=== PATIENT | male | born 1945 | race Caucasian/White ===

== ENCOUNTER 2025-02-21 11:34 | Emergency (ER) | payer SELFPAY ==
--- NOTE | 2025-02-21 11:52 | ED.GENMED ---
History of Present Illness
General
Chief Complaint: Musculo-Skeletal Complaint
Source: patient
Exam Limitations: none
Time Seen by Provider: 02/21/25 11:46
History of Present Illness
History of Present Illness:
79-year-old male complaining of nontraumatic left lateral ankle pain. Points to the lateral ankle. Has been there for 10 days. No fever no chills no rash no swelling. No acute trauma
Past History
Past History
ED Past Medical History: Other (PMR history)
Review of Systems
Review of Systems
All Other Systems: Not applicable
Constitutional: Denies fever or chills
Skin: Reports no symptoms
Phy Exam
Physical Exam
Physical Exam:
General: Nontoxic appearing in no distress
Skin: Warm and dry, no rash
Neuro: Alert, nontoxic, grossly nonfocal
Psychiatric: Good eye contact and appropriate
Musculoskeletal: Left knee tib-fib calf all within normal limits. Achilles intact. No ankle swelling no warmth no erythema or joint effusion. Good distal pulses and color. Foot nontender. Minimal tender near the lateral malleolus more proximal.
No significant pain with flexion extension of the ankle
Course
Orders/Labs/Results
Orders:
Orders
02/21/25 11:40
Ankle, left 3 view CR [CR Ankle - Left Min 3 Views ] Urgent
Comment:
Reason For Exam: pain
*Radiology
Radiology exam reviewed: preliminary read by ED provider (Negative)
*Pulse Oximetry
Patient hypoxic: no
*Critical Care Note
Total Time (30-74mins, 75-104mins- exclusive of procedures): Not Applicable
Update Note
Update Note:
Most consistent with a tendinitis. Nothing to support infectious etiology DVT or vascular issue. NSAIDs if tolerable and orthopedic follow-up
ED Attending Note
-
Portions of this chart may have been created with voice recognition software.� Occasional wrong word or��sound alike� substitutions may have occurred due to the inherent limitations of voice recognition software.
Discharge Plan
Departure
Patient Disposition: Home (Routine Discharge)
Date of Disposition: 02/21/25
Time of Disposition: 12:38
Patient with high blood pressure during this ER visit?: Yes
Discharge Problem:
Ongoing left ankle pain, Suspect tendinitis
Instructions: Tendinopathy (DC), BLOOD PRESSURE
Referrals:
Christel Hoffman, DO [Family Provider] -
Ron Sanchez MD [Active] - Follow up in 2-3 days
Activity Restrictions/Additional Instructions:
Try to rest the ankle is much as you can
Call orthopedics for close follow-up
Return sooner with increasing pain swelling redness fever or any other concerning symptoms
Interventions
Interventions:
*Risk Screen - Suicide Last Done: 02/21/25 11:41
*General Assessment Last Done: 02/21/25 12:16
*Neglect/Abuse Screening Last Done: 02/21/25 11:41
*ED- Fall Risk Assessment Last Done: 02/21/25 11:41
*ED COVID-19 Vaccine History Last Done: 02/21/25 12:16
ED-Musculoskeletal Assessment Last Done: 02/21/25 12:16
Discharge Date and Time
Print Language: ROMANIAN
== END 2025-02-21 13:01 | disposition home or self-care (01) ==
LOC: EMR 11:34
PROVIDERS: EMERGENCY PHYSICIAN Emergency Medicine; FAMILY PHYSICIAN Family Medicine
DX: M25.572 Pain in left ankle and joints of left foot (principal)
CPT/HCPCS: 99283; 73610

== ENCOUNTER 2025-05-04 12:14 | Emergency (ER) | payer MEDICARE, OTHER, SELFPAY ==
[2025-05-04 12:15] VITALS: BP 131/78
--- NOTE | 2025-05-04 13:07 | ED.GENMED ---
History of Present Illness
General
Chief Complaint: Throat Problem
Time Seen by Provider: 05/04/25 13:07
History of Present Illness
History of Present Illness:
TIME OF INITIAL EVALUATION
- 1:10 PM
REVIEW OF OLD RECORDS
- The patient denies any significant past medical history. I reviewed records, the patient was seen here a few months ago with distal left lower extremity pain.
CHIEF COMPLAINT(S)
Difficulty in speaking, sensation of throat closure, and fever for five days.
HISTORY OF PRESENT ILLNESS
The patient is a 79-year-old male presenting with a five-day history of symptoms. He reports persistent difficulty in speaking, stating, 'I cant form the words,' and friends perceiving him as though he might be 'drunk.' This issue with communication
has been ongoing since approximately last weekend. He describes having a sensation of his throat closing, to the point where he felt unable to breathe on one occasion, though he acknowledges he must have been inhaling. Additionally, he experienced
feverish sensations during this period, with the head feeling 'very hot,' although he did not measure his temperature. The patient struggles with forming words, and this difficulty tends to worsen towards the end of the day.
During the evaluation, there were no significant findings of uvular edema, swelling, or pus in the airway. The patient denies abdominal pain with palpation and reports no current cramping. Though he mentions having trouble communicating, his speech
was observed to be mostly clear. He expressed concern about the possibility of having experienced a mini-stroke.
PHYSICAL EXAM
- General: Well appearing in no distress
- HEENT: Moist oral mucosa, posterior pharynx is widely patent with no exudate, no edema, no erythema, no uvular edema
- Cardiovascular: No murmurs, normal heart rate, regular rhythm, No chest wall tenderness
- Pulmonary: No respiratory distress, breath sounds are clear and equal
- Abdomen: Soft with no peritoneal signs, no tenderness
- Neurologic: Excellent strength all extremities, no coordination deficits, there may be extremely subtle rare dysarthria but no aphasia noted, stroke scale 0
- Psychiatric: Appropriate mental status, normal insight and judgement
- Extremities: Nontender, no edema, moves all extremities equally
- Skin: No rash, no lesions
PLAN
1. Perform CT imaging of the brain and neck vessels to check for blockages and evaluate the airway.
2. Obtain blood work.
3. Conduct an electrocardiogram (ECG) if not already done.
4. Consider a neurological evaluation.
5. Monitor and reassess the patients condition after initial tests are completed.
DIFFERENTIAL DIAGNOSIS
The Differential Diagnosis includes, in no particular order and is not limited to:
1. Transient Ischemic Attack (TIA)
2. Stroke
3. Viral pharyngitis
4. Laryngitis
5. Allergic reaction
6. Anxiety
7. Neuropathy
8. Dehydration
9. Dysarthria due to another neurologic condition
10. Gastroesophageal reflux disease (GERD) affecting the throat
RADIOLOGY
- CT head and CTA head neck obtained. There is a 7 mm focus of decreased density in the left thalamus suggestive of age-indeterminate infarct there is no mass or bleed. Less than 50% stenosis noted on bilateral ICA
EKG
- Sinus 69, normal axis, LVH noted
LABS
- White count 11.5, hemoglobin normal, chemistries unremarkable
UPDATE
-SUMMARY OF ENCOUNTER
The patient, a 79-year-old male, presented to the emergency department with a five-day history of difficulty speaking, fever, and sensation of throat closure. A CT scan was performed, revealing no bleeding or tumors but showed a small area in the
left thalamus suggestive of a recent minor stroke. Blood vessels showed less than 50% blockage, which is common for his age and not usually a concern for significant complications. The patient appeared clinically stable, and no acute interventions
were necessary. The case was discussed with a neurologist to determine if further immediate testing, such as an MRI, was needed or if aspirin and/or clopidogrel should be started to prevent further issues.
DISPOSITION
Discharge
MANAGEMENT OF THE PATIENTS CARE WAS DISCUSSED WITH
Neurologist (consultation regarding the interpretation of the CT scan and possible need for further imaging or initiation of anti-platelet therapy).
PLAN
Await input from the neurologist regarding the necessity of starting aspirin or clopidogrel and potentially scheduling an outpatient MRI.
INDEPENDENT REVIEW OF LABS AND INTERPRETATION OF TESTS
- My independent CT imaging interpretation of the brain shows no hemorrhage or large tumors. However, a 7 mm area in the left thalamus suggests a possible recent minor stroke.
PATIENT EDUCATION AND COUNSELING
The patient was educated about the findings suggesting a possible minor stroke and the plan for potential anti-platelet therapy to prevent further episodes. The necessity for further testing, such as an MRI, was discussed.
FOLLOW-UP INSTRUCTIONS
Await further instructions regarding outpatient MRI and follow-up with neurology for management of the suspected stroke.
MEDICAL DECISION MAKING
- Chronic conditions affecting care: Considered differential diagnoses including Transient Ischemic Attack (TIA), Stroke, Viral pharyngitis, Laryngitis, Allergic reaction, Anxiety, Neuropathy, Dehydration, Dysarthria due to another neurologic
condition, Gastroesophageal reflux disease (GERD) affecting the throat.
- Data:
- Category 1: CT imaging of the brain was ordered and independently interpreted. The radiology report matched the findings with a small area in the left thalamus indicating a possible recent stroke.
- Category 3: Management discussion with the on-call neurologist regarding the need for further imaging and anticoagulation therapy.
- Risk: Prescription drug management considered; anti-platelet therapy like aspirin and/or clopidogrel may be recommended. Consideration of hospital admission for MRI was discussed but outpatient management with close follow-up was deemed safe.
DIAGNOSIS
- Cerebral infarction, unspecified (ICD-10: I63.9)
- Dysarthria (ICD-10: R47.1)
I discussed case with neurology who recommends 3 weeks of DAPT as well as Lipitor.
Past History
Past History
ED Past Medical History: Other (PMR history)
Phy Exam
Physical Exam
Physical Exam:
See HPI
Course
Orders/Labs/Results
Orders:
Orders
05/04/25 13:17
CT Head & Neck Angio W/wo IV Urgent
Comment:
Reason For Exam: subtle dysarthria and aphasia past 5d; throat pain
CT Head W/o Iv Contrast Urgent
Comment:
Reason For Exam: subtle dysarthria and aphasia past 5d
05/04/25 13:19
Electrocardiogram (*1) Urgent
Reason for Study: TIA/Stroke
EKG- Treatment ONCE
05/04/25 13:28
COVID-19 Antigen Urgent
Source: Nasal Swab
Complete Blood Count/With Diff Urgent
Comprehensive Metabolic Panel Urgent
Influenza A+B Rapid Molecular Urgent
ENDER Source: Nasal Swab
Specimen Description:
05/04/25 17:31
Aspirin 325 mg PO NOW STA
Clopidogrel Bisulfate [Plavix] 75 mg PO NOW STA
Abnormal Lab Results
05/04/25
13:28
WBC 11.5 H 10^3/uL
(4.8-10.8)
Abs Immat Gran (auto) 0.1 H 10^3/uL
(0-0.05)
Absolute Neuts (auto) 8.3 H 10^3/uL
(1.4-6.5)
Absolute Monos (auto) 1.2 H 10^3/uL
(0.1-0.6)
Immature Gran % 1.0 H %
(0-0.5)
Lymphocytes % 11.3 L %
(20.5-51.1)
Monocytes % 10.3 H %
(1.7-9.3)
Chloride 108 H mmol/L
(98-107)
BUN 24 H mg/dl
(9-20)
05/04/25 13:28
05/04/25 13:28
Vital Signs
Initial and Last Documented VS:
Initial Vital Signs
Temp Pulse Resp BP Pulse Ox
36.5 C 80 16 131/78 96
05/04/25 12:15 05/04/25 12:15 05/04/25 12:15 05/04/25 12:15 05/04/25 12:15
Last Documented Vital Signs
Temp Pulse Resp BP Pulse Ox
36.5 C 80 16 131/78 96
05/04/25 12:15 05/04/25 12:15 05/04/25 12:15 05/04/25 12:15 05/04/25 13:09
*Pulse Oximetry
SaO2: 96
Oxygen Mode of Delivery: Room air
Patient hypoxic: no
*Critical Care Note
Total Time (30-74mins, 75-104mins- exclusive of procedures): Not Applicable
ED Attending Note
-
Portions of this chart may have been created with voice recognition software.� Occasional wrong word or��sound alike� substitutions may have occurred due to the inherent limitations of voice recognition software.
Discharge Plan
Departure
Patient Disposition: Home (Routine Discharge)
Date of Disposition: 05/04/25
Time of Disposition: 17:32
Patient with high blood pressure during this ER visit?: Yes
Discharge Problem:
Cerebrovascular accident (CVA) of left thalamus
Instructions: Stroke, BLOOD PRESSURE
Prescriptions:
New
atorvastatin [Lipitor] 40 mg tablet
40 mg PO HS Qty: 30 0RF
clopidogrel [Plavix] 75 mg tablet
75 mg PO DAILY Qty: 20 0RF
Referrals:
Avril Jernigan MD [Non-Admitting Privileges, Neurology]
Christel Hoffman DO [Family Provider, Family Practice]
Activity Restrictions/Additional Instructions:
The CAT scan suggests a recent stroke (very small measuring 7 mm) involving the left thalamus. I discussed with one of the neurologist who recommend that you take a baby aspirin daily. I am also prescribing Plavix to be taken for the next 3 weeks.
Take aspirin and Plavix together for the next 3 weeks and then discontinue the Plavix and continue the aspirin. He also wants you to go on Lipitor and he should stay on this indefinitely. I prescribed the first month of this. Follow-up your
primary care doctor. I am also given you the contact information for a local neurologist, Dr. Jernigan.
Interventions
Interventions:
*Risk Screen - Suicide Last Done: 05/04/25 12:15
*General Assessment Last Done: 05/04/25 12:15
*Neglect/Abuse Screening Last Done: 05/04/25 14:40
*ED COVID-19 Vaccine History Last Done: 05/04/25 14:40
ED-EENT Assessment Last Done: 05/04/25 14:40
ED- Pulmonary Assessment Last Done: 05/04/25 14:40
Discharge Date and Time
Print Language: HUNGARIAN
[2025-05-04 13:33] LABS: Hematocrit 42.0 % (39.0-52.0); Hemoglobin 14.1 g/dL (13.0-18.0); Mean Corp Hgb Conc. 33.6 g/dL (33.0-37.0); Mean Corpuscular Volume 87.1 fL (80.0-94.0); Nucleated Red Blood Cells % 0 % (-); Platelet Count 309 10^3/uL (130-400); Red Cell Dist. Width 13.1 % (11.5-14.5)
[2025-05-04 13:49] LABS: COVID-19 Antigen Negative (Negative)
[2025-05-04 14:12] LABS: ALT (SGPT) 10 U/L (0-50); AST (SGOT) 17 U/L (17-59); Albumin 3.8 g/dl (3.5-5.0); Alkaline Phosphatase 61 U/L (38-126); Blood Urea Nitrogen 24 mg/dl (9-20); Calcium 9.0 mg/dl (8.4-10.2); Carbon Dioxide 26 mmol/L (22-30); Chloride 108 mmol/L (98-107); Glucose 99 mg/dl (70-99); Potassium 4.7 mmol/L (3.5-5.1); Sodium 138 mmol/L (135-145); Total Protein 7.3 g/dl (6.3-8.2); eGFR > 60.00
[2025-05-04] MEDS: ASPIRIN 325 MG PO (17:43)
[2025-05-04] MEDS: PLAVIX 75 MG PO (17:43)
== END 2025-05-04 18:33 | disposition home or self-care (01) ==
LOC: EMR 12:14
PROVIDERS: EMERGENCY PHYSICIAN Emergency Medicine; FAMILY PHYSICIAN Family Medicine
DX: I63.9 Cerebral infarction, unspecified (principal)
CPT/HCPCS: 99284; 70496; 70498; 80053; 85025; 87502; 87811; 93005; Q9967

== ENCOUNTER → 2025-05-28 09:29 | Emergency (ER) | payer MEDICARE, OTHER, SELFPAY ==
[2025-05-28 09:33] VITALS: BP 156/97
--- NOTE | 2025-05-28 10:15 | ED.GENMED ---
History of Present Illness
<MATTY George - Last Filed: 05/28/25 15:17>
General
Chief Complaint: Generalized Pain
Source: patient
Exam Limitations: none
Time Seen by Provider: 05/28/25 09:37
Nursing documentation reviewed up to this point in time: agreed with
History of Present Illness
History of Present Illness:
Patient is an 80-year-old male with past medical history of polymyalgia rheumatica diagnosed in 2019 and recent stroke diagnosed here May 04 in the ER. He reports he noticed that his pain several weeks ago.
He complains of leg pain b/l. leg and feels he can walk around well weakness bilaterally for the past several weeks however worse over this weekend. He can barely walk a couple steps without having pain. He complains of pain to his thighs and
describes as muscular pain. 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 Patient was seen in the ER May 04 for stroke and at that time he was prescribed Lipitor and Plavix but stopped taking this several days after he was prescribed.
In addition pt recently has noticed some mild urinary incontinence. He denies any actual fever chills or dysuria. He does not feel like that he is retaining urine. He does that he is emptying his bladder. Denies any recent fever or chills. He
denies any back pain. He denies any numbness , tingling. no saddle paresthesia
Past History
<MATTY George - Last Filed: 05/28/25 15:17>
Past History
ED Past Medical History: Other (PMR history)
Phy Exam
<MATTY George - Last Filed: 05/28/25 15:17>
General Physical Exam
General Presentation: no apparent distress
General age: appears stated age
General Skin: warm and dry
General Habitus: normal
General Mental: alert
General Hydration: appears well hydrated
Cardiovascular Exam
Cardiovascular Exam: regular rate/rhythm, no murmur and normal peripheral pulses
Pulmonary Exam
Pulmonary Exam: lungs clear and no respiratory distress
Neurological Exam
Neurological Exam: alert and oriented x3
Musculoskeletal Exam
Musculoskeletal Exam: full ROM and other (Patient is known as a pulses bilateral lower extremities normal inspection no obvious leg redness or swelling full range of motion of bilateral hips)
Skin Exam
Skin Exam: normal color and warm/dry
Psychiatric Exam
Psychiatric Exam: normal mood/affect
Course
<MATTY George - Last Filed: 05/28/25 15:17>
Orders/Labs/Results
Orders:
Orders
05/28/25 10:18
Bladder Scan- Treatment ONCE
05/28/25 10:19
IV Insert/Care/Rem.- Treatment PRN
05/28/25 10:23
0.9% Sodium Chloride 1000 ml [Nss] 1,000 ml IV BOLUS
05/28/25 11:05
CPK [Creatine Phosphokinase] Urgent
CRP [C-Reactive Protein] Urgent
Complete Blood Count/With Diff Urgent
Comprehensive Metabolic Panel Urgent
Sed Rate [Erythrocyte Sed Rate] Urgent
05/28/25 13:17
COVID-19 Antigen Urgent
Source: Nasal Swab
Urinalysis Reflex To Culture Urgent
Date Specimen was Collected: 05/28/25
Time Specimen was Collected: 11:08
Urine Microscopic Reflex Cult Urgent
05/28/25 15:01
Prednisone [Deltasone] 15 mg PO NOW STA
Abnormal Lab Results
05/28/25 05/28/25
11:05 13:17
WBC 17.4 H 10^3/uL
(4.8-10.8)
RBC 4.35 L 10^6/uL
(4.70-6.10)
Hgb 12.2 L g/dL
(13.0-18.0)
Hct 36.8 L %
(39.0-52.0)
Abs Immat Gran (auto) 0.3 H 10^3/uL
(0-0.05)
Absolute Neuts (auto) 15.3 H 10^3/uL
(1.4-6.5)
Absolute Lymphs (auto) 0.7 L 10^3/uL
(1.2-3.4)
Absolute Monos (auto) 1.0 H 10^3/uL
(0.1-0.6)
Immature Gran % 1.8 H %
(0-0.5)
Neutrophils % 88.3 H %
(42.2-75.2)
Lymphocytes % 3.9 L %
(20.5-51.1)
ESR 86 H mm/hour
(0-20)
Sodium 134 L mmol/L
(135-145)
BUN 21 H mg/dl
(9-20)
Glucose 114 H mg/dl
(70-99)
Creatine Kinase 285 H U/L
(55-170)
C-Reactive Protein 79.50 H mg/L
(0.0-10.00)
Albumin 3.1 L g/dl
(3.5-5.0)
Ur Occult Blood Reflex 1+ A
(Negative)
Urine Bacteria (Reflex) Few A
(Negative)
Urine Albumin (Reflex) 2+ A
(Neg - Trace)
05/28/25 11:05
05/28/25 11:05
Vital Signs
Initial and Last Documented VS:
Initial Vital Signs
Temp Pulse Resp BP Pulse Ox
98.0 F 97 16 156/97 98
05/28/25 09:33 05/28/25 09:33 05/28/25 09:33 05/28/25 09:33 05/28/25 09:33
Last Documented Vital Signs
Temp Pulse Resp BP Pulse Ox
98.7 F 83 19 163/96 98
05/28/25 11:24 05/28/25 11:17 05/28/25 11:17 05/28/25 11:17 05/28/25 10:17
Branch Service Associate consulted with Physician
Branch Service Associate consulted with physician?: Yes
Name of Physician Consulted: Andriy
<Javon Ashraf, DO - Last Filed: 05/28/25 15:02>
Orders/Labs/Results
Orders:
Orders
05/28/25 10:18
Bladder Scan- Treatment ONCE
05/28/25 10:19
IV Insert/Care/Rem.- Treatment PRN
05/28/25 10:23
0.9% Sodium Chloride 1000 ml [Nss] 1,000 ml IV BOLUS
05/28/25 11:05
CPK [Creatine Phosphokinase] Urgent
CRP [C-Reactive Protein] Urgent
Complete Blood Count/With Diff Urgent
Comprehensive Metabolic Panel Urgent
Sed Rate [Erythrocyte Sed Rate] Urgent
05/28/25 13:17
COVID-19 Antigen Urgent
Source: Nasal Swab
Urinalysis Reflex To Culture Urgent
Date Specimen was Collected: 05/28/25
Time Specimen was Collected: 11:08
Urine Microscopic Reflex Cult Urgent
05/28/25 15:01
Prednisone [Deltasone] 15 mg PO NOW STA
Abnormal Lab Results
05/28/25 05/28/25
11:05 13:17
WBC 17.4 H 10^3/uL
(4.8-10.8)
RBC 4.35 L 10^6/uL
(4.70-6.10)
Hgb 12.2 L g/dL
(13.0-18.0)
Hct 36.8 L %
(39.0-52.0)
Abs Immat Gran (auto) 0.3 H 10^3/uL
(0-0.05)
Absolute Neuts (auto) 15.3 H 10^3/uL
(1.4-6.5)
Absolute Lymphs (auto) 0.7 L 10^3/uL
(1.2-3.4)
Absolute Monos (auto) 1.0 H 10^3/uL
(0.1-0.6)
Immature Gran % 1.8 H %
(0-0.5)
Neutrophils % 88.3 H %
(42.2-75.2)
Lymphocytes % 3.9 L %
(20.5-51.1)
ESR 86 H mm/hour
(0-20)
Sodium 134 L mmol/L
(135-145)
BUN 21 H mg/dl
(9-20)
Glucose 114 H mg/dl
(70-99)
Creatine Kinase 285 H U/L
(55-170)
C-Reactive Protein 79.50 H mg/L
(0.0-10.00)
Albumin 3.1 L g/dl
(3.5-5.0)
Ur Occult Blood Reflex 1+ A
(Negative)
Urine Bacteria (Reflex) Few A
(Negative)
Urine Albumin (Reflex) 2+ A
(Neg - Trace)
05/28/25 11:05
05/28/25 11:05
Vital Signs
Initial and Last Documented VS:
Initial Vital Signs
Temp Pulse Resp BP Pulse Ox
98.0 F 97 16 156/97 98
05/28/25 09:33 05/28/25 09:33 05/28/25 09:33 05/28/25 09:33 05/28/25 09:33
Last Documented Vital Signs
Temp Pulse Resp BP Pulse Ox
98.7 F 83 19 163/96 98
05/28/25 11:24 05/28/25 11:17 05/28/25 11:17 05/28/25 11:17 05/28/25 10:17
<MATTY George - Last Filed: 05/28/25 15:17>
MDM/Problems Addressed
Differential Diagnosis Includes:
not limited to: PMR exacerbation rhabdomyolysis, dehydration
MDM/Problems Addressed:
documented patient is an 80-year-old male with past medical history of polymyalgia rheumatica last flare was in 2019 presents to the ER complaining of bilateral leg pain and weakness. This started several weeks ago. He incidentally was seen and
diagnosed with stroke in May 04 and started on statin and Plavix but stopped taking them only 3 days after. He felt that maybe the leg pain was related to this as well. He currently does not really follow-up with his family doctor and does not
have a current associate programmer. He is awake alert no acute distress he is able to walk. He denies any recent fever chills. He does however report some mild incontinence but denies any actual pain with urination. Denies any back pain. Denies any
nausea vomiting. Denies any recent trauma saddle paresthesia or numbness and tingling to his legs. Patient's white count is mildly elevated along with his sed rate and CRP. CPK very minimally elevated .
Patient gave a urine specimen does not feel that he is retaining urine and feels that he completely emptied his bladder there is no evidence of infection. Case reviewed ED physician. Case reviewed with rheumatology Dr. Cronin who does recommend
starting 50 mg of prednisone a day and she will get patient in the office this week. I did thoroughly the discharge instructions and the importance of outpatient rheumatology follow-up.
<MATTY George - Last Filed: 05/28/25 15:17>
*Pulse Oximetry
SaO2: 98
Oxygen Mode of Delivery: Room air
Patient hypoxic: no
*Critical Care Note
Total Time (30-74mins, 75-104mins- exclusive of procedures): Not Applicable
ED Attending Note
<MATTY George - Last Filed: 05/28/25 15:17>
-
Portions of this chart may have been created with voice recognition software.� Occasional wrong word or��sound alike� substitutions may have occurred due to the inherent limitations of voice recognition software.
<Javon Ashraf DO - Last Filed: 05/28/25 15:02>
ED Attending Note
Patient seen and examined by attending physician: Yes
I performed the substantive portion of visit, reviewed & personally made and approve the management plan that is documented in note by myself or EM.: Yes
ED Attending Note:
I evaluated the patient at bedside. He reports primarily lower extremity discomfort that may be related to PMR history. Will resume steroids. Some of his symptoms worsened after he started a statin when I saw him a few weeks ago for strokelike
symptoms. He will continue to hold the statin for now.
Discharge Plan
Departure
Patient Disposition: Home (Routine Discharge)
Date of Disposition: 05/28/25
Time of Disposition: 15:08
Patient with high blood pressure during this ER visit?: Yes
Condition: Fair
Covid-19: Not Applicable
Discharge Problem:
Myalgia
Instructions: Muscle, joint, and bone pain - Discharge instructions, BLOOD PRESSURE
Prescriptions:
New
prednisone 5 mg tablet
15 mg PO DAILY Qty: 21 0RF
No Action
atorvastatin [Lipitor] 40 mg tablet
40 mg PO HS Qty: 30 0RF
clopidogrel [Plavix] 75 mg tablet
75 mg PO DAILY Qty: 20 0RF
Referrals:
Lian Cronin MD [Active, Rheumatology]
Christel Hoffman DO [Family Provider, Family Practice]
Activity Restrictions/Additional Instructions:
discussed you were started on prednisone ( a steroid) and you were Given a dose here in the ER. Please start taking 15 mg of steroids daily for the next week(starting tomorrow )
Please call rheumatology either today or tomorrow for an appointment this week.
Return if any worsening of symptoms of increased pain or weakness or any further concerns.
Interventions
Interventions:
*Risk Screen - Suicide Last Done: 05/28/25 09:33
*General Assessment Last Done: 05/28/25 11:13
*Neglect/Abuse Screening Last Done: 05/28/25 09:33
*ED- Fall Risk Assessment Last Done: 05/28/25 11:13
*ED COVID-19 Vaccine History Last Done: 05/28/25 11:13
Discharge Date and Time
Print Language: WALLISIAN
[2025-05-28 11:09] VITALS: BMI 19.6
[2025-05-28 11:17] VITALS: BP 163/96
[2025-05-28 11:18] LABS: Hematocrit 36.8 % (39.0-52.0); Hemoglobin 12.2 g/dL (13.0-18.0); Mean Corp Hgb Conc. 33.2 g/dL (33.0-37.0); Mean Corpuscular Volume 84.6 fL (80.0-94.0); Nucleated Red Blood Cells % 0 % (-); Platelet Count 371 10^3/uL (130-400); Red Cell Dist. Width 13.2 % (11.5-14.5)
[2025-05-28] MEDS: NSS 1000 IV (11:20)
[2025-05-28 11:33] LABS: ALT (SGPT) 24 U/L (0-50); AST (SGOT) 28 U/L (17-59); Albumin 3.1 g/dl (3.5-5.0); Alkaline Phosphatase 54 U/L (38-126); Blood Urea Nitrogen 21 mg/dl (9-20); Calcium 8.4 mg/dl (8.4-10.2); Carbon Dioxide 25 mmol/L (22-30); Chloride 105 mmol/L (98-107); Estimated Creatinine Clearance 80 ml/min; Glucose 114 mg/dl (70-99); Potassium 4.7 mmol/L (3.5-5.1); Sodium 134 mmol/L (135-145); Total Protein 6.5 g/dl (6.3-8.2); eGFR > 60.00
[2025-05-28 11:34] LABS: C-Reactive Protein 79.50 mg/L (0.0-10.00)
[2025-05-28 12:00] VITALS: BP 147/89
[2025-05-28 13:07] VITALS: BP 162/103
[2025-05-28 14:00] VITALS: BP 139/93
[2025-05-28 14:01] LABS: Urine Character Clear (Clear)
[2025-05-28 14:09] LABS: COVID-19 Antigen Negative (Negative)
[2025-05-28 14:31] LABS: Urine Red Blood Cell 0-2 /HPF (0-2)
[2025-05-28] MEDS: DELTASONE 15 MG PO (15:42)
--- NOTE | 2025-05-28 19:23 | ED.GENMED ---
History of Present Illness
General
Chief Complaint: Generalized Pain
Time Seen by Provider: 05/28/25 09:37
Past History
Past History
ED Past Medical History: Other (PMR history)
Course
Orders/Labs/Results
Orders:
Orders
05/28/25 10:18
Bladder Scan- Treatment ONCE
05/28/25 10:19
IV Insert/Care/Rem.- Treatment PRN
05/28/25 10:23
0.9% Sodium Chloride 1000 ml [Nss] 1,000 ml IV BOLUS
05/28/25 11:05
CPK [Creatine Phosphokinase] Urgent
CRP [C-Reactive Protein] Urgent
Complete Blood Count/With Diff Urgent
Comprehensive Metabolic Panel Urgent
Sed Rate [Erythrocyte Sed Rate] Urgent
05/28/25 13:17
COVID-19 Antigen Urgent
Source: Nasal Swab
Urinalysis Reflex To Culture Urgent
Date Specimen was Collected: 05/28/25
Time Specimen was Collected: 11:08
Urine Microscopic Reflex Cult Urgent
05/28/25 15:28
Prednisone [Deltasone] 15 mg PO NOW STA
Abnormal Lab Results
05/28/25 05/28/25
11:05 13:17
WBC 17.4 H 10^3/uL
(4.8-10.8)
RBC 4.35 L 10^6/uL
(4.70-6.10)
Hgb 12.2 L g/dL
(13.0-18.0)
Hct 36.8 L %
(39.0-52.0)
Abs Immat Gran (auto) 0.3 H 10^3/uL
(0-0.05)
Absolute Neuts (auto) 15.3 H 10^3/uL
(1.4-6.5)
Absolute Lymphs (auto) 0.7 L 10^3/uL
(1.2-3.4)
Absolute Monos (auto) 1.0 H 10^3/uL
(0.1-0.6)
Immature Gran % 1.8 H %
(0-0.5)
Neutrophils % 88.3 H %
(42.2-75.2)
Lymphocytes % 3.9 L %
(20.5-51.1)
ESR 86 H mm/hour
(0-20)
Sodium 134 L mmol/L
(135-145)
BUN 21 H mg/dl
(9-20)
Glucose 114 H mg/dl
(70-99)
Creatine Kinase 285 H U/L
(55-170)
C-Reactive Protein 79.50 H mg/L
(0.0-10.00)
Albumin 3.1 L g/dl
(3.5-5.0)
Ur Occult Blood Reflex 1+ A
(Negative)
Urine Bacteria (Reflex) Few A
(Negative)
Urine Albumin (Reflex) 2+ A
(Neg - Trace)
05/28/25 11:05
05/28/25 11:05
Vital Signs
Initial and Last Documented VS:
Initial Vital Signs
Temp Pulse Resp BP Pulse Ox
98.0 F 97 16 156/97 98
05/28/25 09:33 05/28/25 09:33 05/28/25 09:33 05/28/25 09:33 05/28/25 09:33
Last Documented Vital Signs
Temp Pulse Resp BP Pulse Ox
98.7 F 79 16 139/93 98
05/28/25 11:24 05/28/25 15:00 05/28/25 15:00 05/28/25 14:00 05/28/25 10:17
*Pulse Oximetry
SaO2: 98
Oxygen Mode of Delivery: Room air
ED Attending Note
-
Portions of this chart may have been created with voice recognition software.� Occasional wrong word or��sound alike� substitutions may have occurred due to the inherent limitations of voice recognition software.
Discharge Plan
Departure
Patient Disposition: Home (Routine Discharge)
Date of Disposition: 05/28/25
Time of Disposition: 15:08
Patient with high blood pressure during this ER visit?: Yes
Condition: Fair
Covid-19: Not Applicable
Discharge Problem:
Myalgia
Instructions: Muscle, joint, and bone pain - Discharge instructions, BLOOD PRESSURE
Prescriptions:
New
prednisone 5 mg tablet
15 mg PO DAILY Qty: 21 0RF
No Action
atorvastatin [Lipitor] 40 mg tablet
40 mg PO HS Qty: 30 0RF
clopidogrel [Plavix] 75 mg tablet
75 mg PO DAILY Qty: 20 0RF
Referrals:
Lian Cronin MD [Active, Rheumatology]
Christel Hoffman DO [Family Provider, Family Practice]
Activity Restrictions/Additional Instructions:
discussed you were started on prednisone ( a steroid) and you were Given a dose here in the ER. Please start taking 15 mg of steroids daily for the next week(starting tomorrow )
Please call rheumatology either today or tomorrow for an appointment this week.
Return if any worsening of symptoms of increased pain or weakness or any further concerns.
Interventions
Interventions:
*Risk Screen - Suicide Last Done: 05/28/25 09:33
*General Assessment Last Done: 05/28/25 11:13
*Neglect/Abuse Screening Last Done: 05/28/25 09:33
*ED- Fall Risk Assessment Last Done: 05/28/25 11:13
*ED COVID-19 Vaccine History Last Done: 05/28/25 11:13
Discharge Date and Time
Print Language: ANDORRAN
== END | disposition home or self-care (01) ==
LOC: EMR 09:29
PROVIDERS: Nurse Practitioner; EMERGENCY PHYSICIAN Emergency Medicine; FAMILY PHYSICIAN Family Medicine
DX: M79.10 Myalgia, unspecified site (principal); Z86.73 Personal history of transient ischemic attack (TIA), and cerebral infarction without residual deficits
CPT/HCPCS: 99283; 96360; 80053; 81003; 81015; 82550; 85025; 85652; 86140; 87811

== ENCOUNTER 2025-06-01 15:14 | Inpatient (IN) | payer MEDICARE, OTHER, SELFPAY ==
[2025-06-01] VITALS (11 sets, daily range): BP systolic 121–182; BP diastolic 71–100; BMI 19.5; BMI 18.9
--- NOTE | 2025-06-01 10:40 | ED.GENMED ---
History of Present Illness
General
Chief Complaint: Dizziness
Source: patient
Exam Limitations: none
Time Seen by Provider: 06/01/25 10:39
Nursing documentation reviewed up to this point in time: agreed with
History of Present Illness
History of Present Illness:
80-year-old male with history of polymyalgia rheumatica, CVA, presents with dizziness and cold sweats that began around 7:00 AM today. The episodes were accompanied by feelings of unsteadiness and required him to sit down. The patient reports that
these symptoms have been slowly improving with 'just a little' residual dizziness. He has a history of a previous stroke 05/04/25 with residual left leg weakness. He denies any chest pain, nausea, or breathing difficulties during the current episode.
There is no new numbness, tingling, or weakness of the arms or legs and no headache.
The patient admits that he is incontinent and has no control over his bladder, leading to the use of pads. Regarding medications, he stopped taking Clopidogrel (Plavix) and Atorvastatin (Lipitor) because he perceived they impaired his ability to
walk and caused dizziness, although he acknowledges this may have been coincidental. His current medications include Prednisone, prescribed yesterday by a material analyst for polymyalgia rheumatica.
The patient has an MRI scheduled at [facility] in 2 days as a follow-up for the stroke
Past History
Past History
ED Past Medical History: CVA and Other (PMR )
ED Past Surgical History: Orthopedic
Social History
Tobacco: Non-smoker
Alcohol: None
Personal:
Living: with family
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
Review of Systems
Review of Systems
Allergies reviewed?: Yes
All Other Systems: ROS reviewed and negative except as documented in HPI and ROS
Constitutional: Denies fever
Respiratory: Denies trouble breathing
Cardiac: Reports diaphoresis; Denies chest pain
ABD/GI: Denies abdominal pain or nausea
: Reports incontinence
Musculoskeletal: Denies edema
Neurological: Reports dizzy and weakness (Residual left leg weakness post CVA); Denies headache or numbness
Phy Exam
Physical Exam
Physical Exam:
GENERAL: No acute distress. A&Ox3.
CONSTITUTIONAL: Afebrile.
EYES: clear, conjunctivae normal
ENMT: moist mucus membranes, Pharynx nl
RESPIRATORY: Regular respirations, nonlabored, lungs clear.
CARDIOVASCULAR: Regular rate and rhythm, no murmurs, no rubs.
GI: Soft, nontender, normal BS
MUSCULOSKELETAL: Moves with ease. Well perfused.
SKIN: Warm, dry, pink
PSYCH: Normal mood and affect. Well kept, interactive and appropriate
NEUROLOGIC: Awake, alert and oriented. Speech clear. Strength equal throughout. Hhuptr-ui-vweg intact. No focal neurological deficits
Scores
NIH Stroke Score
Level of Consciousness: 0 - Alert
LOC Questions: 0-Answers both correctly
LOC Commands: 0-Performs both correctly
Best Horizontal Gaze: 0-Normal
Visual Carroll: 0=Normal, no visual loss
Facial Palsy: 0=Normal, symmetrical
Motor - Right Arm: 0=No drift 10 seconds
Motor - Left Arm: 0=No drift 10 seconds
Motor - Right Le-No drift 5 seconds
Motor - Left Le-No drift 5 seconds
Limb Ataxia: 0-Absent
Sensation: 0-Normal
Best Language: 0-No aphasia
Dysarthria: 0-Normal
Extinction and Inattention: 0-No abnormality
NIH Total Score:: 0
Course
Orders/Labs/Results
Orders:
Orders
06/01/25 10:35
Electrocardiogram (*1) Urgent
Reason for Study: Chest Pain
EKG- Treatment ONCE
06/01/25 10:36
C-Reactive Protein Urgent
Comment: ADD ON
Complete Blood Count/With Diff Urgent
Comprehensive Metabolic Panel Urgent
Creatine Phosphokinase Urgent
Ferritin Urgent
Comment: ADD ON
Folate Urgent
Comment: ADD ON
TSH Reflex To Free T4 Urgent
Comment: ADD ON
Troponin I Urgent
Vitamin B12 Urgent
Comment: ADD ON
Vitamin D, 25-Oh Urgent
06/01/25 10:56
CT Head W/o Iv Contrast Urgent
Comment:
Reason For Exam: dizziness
06/01/25 11:04
Urinalysis Reflex To Culture Urgent
06/01/25 14:05
Add On- LAB Urgent
Tests Added?: crp, esr, ths with free t4 reflex, CPK
Bladder Scan As Directed
Follow Bladder Retention/Intermittent Cath Algorithm?: Yes
PRN if no void in __ hours: 6
Frequency: Per Retention Algorithm
If Bladder Scan Result >: 400
then:: Straight cath
06/01/25 14:06
Lumbar W/O & With Contrast MR [MR Lumbar W/o & With Contrast] Urgent
Comment:
Reason For Exam: urinary incontinence
OK for patient to be off Cardiac Monitoring for MRI: Yes
Recent pill cam endoscopy?: No
Straight Cath As Directed
Frequency: Per Retention Algorithm
Additional Instructions: straight cath as needed per acute urinary retention algorithm for 24 hrs
Additional Instructions: for bladder scan greater than 400 mL
06/01/25 14:12
Add On- LAB Urgent
Tests Added?: crp, b12 vitamin 3 25-hydroxy
06/01/25 14:22
Add On- LAB Urgent
Tests Added?: ferritin tibc, folate
06/01/25 14:34
NEUROLOGY CONSULT Routine
Consulting Provider: Tomi Montiel
Was physician already notified: Yes
Reason for consult: reecnt cva leg weakness bladder incontinece
Chest [CR Chest - 2 Views ] Urgent
Comment:
Reason For Exam: Acute leukocytosis
06/01/25 14:35
Admit/Transfer Patient As Directed
Co-Sign Provider:
Level of Care: Inpatient admission
Assign to:: Telemetry
Physician / Group: vivi craft
Diagnosis: leg weakness bladder incont conc lumbar issue vs pmr, leukocytosis unclear
Reason for Telemetry: Arrhythmia
Date to Stop Telemetry: 06/04/25
Time to Stop Telemetry: 11:00
Reason for Hospitalization: leg weakness bladder incont conc lumbar issue vs pmr, leukocytosis unclear
Expected length of stay greater than two midnights?: Yes
ELOS- Estimated Length of Stay in days: 5
I certify the patient meets the requirements for IP care: Yes
Code Status As Directed
Resuscitation Status: Do not resuscitate
Reached after discussion with pt or family/Healthcare POA: Yes
Decision communicated with: Per patient with daughter in room
DNR Bracelet Application ONCE
06/01/25 14:37
PRN Pain Medication Management As Directed
May give lesser potent ordered pain med per pt: Yes
preference::
Protocol:: Medication orders for pain may be administered in a
manner that supports deferring to patient preference
when the pt is:
- Requesting an ordered lesser potent pain medication.
Least to most potent pain medications are defined
as: acetaminophen < NSAID < tramadol < opioids
(morphine, oxycodone, hydromorphone).
- Requesting a lesser dose of the same medication IF
ORDERED.
- Requesting a less intrusive route of administration
if both routes are prescribed by the provider (PO <
IV).
06/01/25 14:38
MR Thoracic Spine W/o & With Urgent
Comment:
Reason For Exam: bladder incontinence leg wekaness
OK for patient to be off Cardiac Monitoring for MRI: Yes
Recent pill cam endoscopy?: No
Pacemaker/Defibrillator?: No
06/01/25 14:42
Famotidine [Pepcid] 20 mg PO NOW STA
Prednisone [Deltasone] 60 mg PO NOW STA
06/01/25 14:45
Blood Culture Q30M
ENDER Source: Blood/Venous
Specimen Description:
06/01/25 15:15
Blood Culture Q30M
ENDER Source: Blood/Venous
Specimen Description:
06/01/25 15:34
Urinalysis Reflex To Culture Routine
Date Specimen was Collected: 06/01/25
Time Specimen was Collected: 14:47
Urine Microscopic Reflex Cult Routine
Urine Culture Routine
ENDER Source: U
Specimen Description:
Date Specimen was Collected: 06/01/25
Time Specimen was Collected: 14:47
06/01/25 15:39
ROLANDA, IgG Reflex to HEp-2 [S] Routine
Comment: May add to blood in lab
Acetylcholine Receptor Bind Ab [S] Routine
Comment: may add to blood in lab or draw as routine
CPK Isoenzyme Routine
Comment: May add to blood in lab
Lactic Acid Urgent
06/02/25 08:00
Famotidine [Pepcid] 20 mg PO DAILY
06/04/25 11:00
DC Protocol for Telemetry ONCE
Abnormal Lab Results
06/01/25
10:36
WBC 16.2 H 10^3/uL
(4.8-10.8)
RBC 4.26 L 10^6/uL
(4.70-6.10)
Hgb 12.0 L g/dL
(13.0-18.0)
Hct 36.9 L %
(39.0-52.0)
MCHC 32.5 L g/dL
(33.0-37.0)
Abs Immat Gran (auto) 0.4 H 10^3/uL
(0-0.05)
Absolute Neuts (auto) 13.6 H 10^3/uL
(1.4-6.5)
Absolute Lymphs (auto) 0.8 L 10^3/uL
(1.2-3.4)
Absolute Monos (auto) 1.2 H 10^3/uL
(0.1-0.6)
Immature Gran % 2.2 H %
(0-0.5)
Neutrophils % 83.7 H %
(42.2-75.2)
Lymphocytes % 4.8 L %
(20.5-51.1)
BUN 23 H mg/dl
(9-20)
Glucose 137 H mg/dl
(70-99)
Calcium 7.9 L mg/dl
(8.4-10.2)
C-Reactive Protein 49.10 H mg/L
(0.0-10.00)
Total Protein 6.0 L g/dl
(6.3-8.2)
Albumin 3.0 L g/dl
(3.5-5.0)
Vitamin D 25-Hydroxy 18.5 L ng/mL
(30-80)
06/01/25 10:36
06/01/25 10:36
Vital Signs
Initial and Last Documented VS:
Initial Vital Signs
Pulse Resp BP Pulse Ox
70 19 154/78 96
06/01/25 10:34 06/01/25 10:34 06/01/25 10:34 06/01/25 10:34
Last Documented Vital Signs
Temp Pulse Resp BP Pulse Ox
98.9 F 66 17 139/88 96
06/01/25 10:54 06/01/25 15:00 06/01/25 15:00 06/01/25 15:00 06/01/25 15:00
MDM/Problems Addressed
Differential Diagnosis Includes:
- Cerebrovascular event (transient ischemic attack or stroke)
- Orthostatic hypotension
- Labyrinthitis or vestibular dysfunction
- Dehydration
- Cardiac arrhythmia
- Infection (e.g., urinary tract infection)
- Hypoglycemia
- Myocardial infarction
- Anxiety disorder
MDM/Problems Addressed:
80-year-old male with history of polymyalgia rheumatica, CVA, presents with dizziness and cold sweats that began around 7:00 AM today. The episodes were accompanied by feelings of unsteadiness and required him to sit down. The patient reports that
these symptoms have been slowly improving with 'just a little' residual dizziness. He has a history of a previous stroke 05/04/25 with residual left leg weakness. He denies any chest pain, nausea, or breathing difficulties during the current episode.
There is no new numbness, tingling, or weakness of the arms or legs and no headache.
The patient admits that he is incontinent and has no control over his bladder, leading to the use of pads. Regarding medications, he stopped taking Clopidogrel (Plavix) and Atorvastatin (Lipitor) because he perceived they impaired his ability to
walk and caused dizziness, although he acknowledges this may have been coincidental. His current medications include Prednisone, prescribed yesterday by a material analyst for polymyalgia rheumatica.
The patient has an MRI scheduled at [facility] in 2 days as a follow-up for the stroke
Problem list:
Acute:
- Dizziness with cold sweats
Chronic:
- Left leg weakness secondary to transient ischemic attack
- Polymyalgia rheumatica
-Urine incontinence
Plan:
- Initiate basic blood work
- Obtain a CT scan of the head to evaluate potential causes for dizziness
- Reinforce the need for adherence to Clopidogrel (Plavix) due to its importance in preventing stroke
- Continuous monitoring for changes in neurological status
CBC: WBC 16.2 may be steroid-induced as he had a dose of steroid yesterday
CMP: No clinically significant abnormality
Troponin WNL
Head CT: Radiology report read: No acute intracranial abnormality.
Plan: Admit to hospitalist. Concern for CVA, most likely needs MRI
*Pulse Oximetry
Patient hypoxic: no
*Critical Care Note
Total Time (30-74mins, 75-104mins- exclusive of procedures): Not Applicable
ED Attending Note
-
Portions of this chart may have been created with voice recognition software.� Occasional wrong word or��sound alike� substitutions may have occurred due to the inherent limitations of voice recognition software.
Discharge Plan
Departure
Patient Disposition: Admit
Date of Disposition: 06/01/25
Time of Disposition: 12:04
Admit to: Med/Surg
Presentation/result/management discussed w/ accepting MD/DO: Hospitalist
Condition: Fair
Discharge Problem:
Dizziness
Interventions
Interventions:
*Risk Screen - Suicide Last Done: 06/01/25 10:37
*General Assessment Last Done: 06/01/25 10:37
*Neglect/Abuse Screening Last Done: 06/01/25 10:37
*ED- Fall Risk Assessment Last Done: 06/01/25 10:37
ED- Neurological Assessment Last Done: 06/01/25 10:42
ED- Cardiac Assessment Last Done: 06/01/25 10:42
[2025-06-01 10:51] LABS: Hematocrit 36.9 % (39.0-52.0); Hemoglobin 12.0 g/dL (13.0-18.0); Mean Corp Hgb Conc. 32.5 g/dL (33.0-37.0); Mean Corpuscular Volume 86.6 fL (80.0-94.0); Nucleated Red Blood Cells % 0 % (-); Platelet Count 328 10^3/uL (130-400); Red Cell Dist. Width 13.6 % (11.5-14.5)
[2025-06-01 11:03] LABS: ALT (SGPT) 30 U/L (0-50); AST (SGOT) 27 U/L (17-59); Albumin 3.0 g/dl (3.5-5.0); Alkaline Phosphatase 54 U/L (38-126); Blood Urea Nitrogen 23 mg/dl (9-20); Calcium 7.9 mg/dl (8.4-10.2); Carbon Dioxide 27 mmol/L (22-30); Chloride 105 mmol/L (98-107); Estimated Creatinine Clearance 80 ml/min; Glucose 137 mg/dl (70-99); Potassium 3.9 mmol/L (3.5-5.1); Sodium 137 mmol/L (135-145); Total Protein 6.0 g/dl (6.3-8.2); eGFR > 60.00
[2025-06-01 11:14] LABS: Troponin I < 0.012 ng/ml
--- NOTE | 2025-06-01 13:27 | HPS.HSE ---
Family Physician
-
Family Physician: Christel Hoffman
Chief Complaint
-
Bilateral leg weakness, urinary incontinence
History of Present Illness
80-year-old male complaining of bilateral leg weakness with cramping starting 05/07/2025 3 days after being diagnosed with a stroke on 05/04/2025 that presented with speech difficulty lasting intermittent for several days per his daughter. He he was
seen in the ER however was not seen by neurology he states. He stopped taking aspirin, Plavix, Lipitor 3 days poststroke as he perceived these were making his legs weak. He also reports decreased appetite not eating and drinking for the past month
typically only drinks 24 ounces of coffee a day other day had a banana. This morning while getting up and walking to the bathroom he felt diaphoretic as if he was going to pass out so he sat down on the toilet until he was able to walk and lay down
in the bed where symptoms resolved. He has been going to work except for today due to profound leg weakness. He was seen in the ER on Wednesday 4 days ago due to leg weakness and urinary incontinence he had negative urinalysis at that time he tells
me he had a bladder scan but is unsure of results. He did have leukocytosis at that time but has not been on steroids since 2019. . He was started on prednisone 15 mg on Wednesday 4 days ago his leg weakness and suspected polymyalgia rheumatica. He
was seen yesterday 05/29/2025 by rheumatology was recommended for prednisone to increase to 60 mg. He was also treated for giant cell arteritis via temporal artery biopsy in 2019. He denies current dizziness, vertigo, headache, sore throat, fever,
chills, chest pain, palpitations, cough, shortness of breath, abdominal pain, nausea, vomiting, diarrhea, or rash. He has past medical history of PMR 2019, giant cell arteritis 2019
Medical History
Past Medical History
Past Medical History: Reports Other
Additional Past Medical History:
PMR 2019
giant cell arteritis 2019
former smoker 5 years age [age] 11/02 ppd
Past Surgical History: Reports Other
Additional Past Surgical History:
Appendectomy
Tonsillectomy
Left shoulder reconstruction
Right ankle fracture repair
Social History
Tobacco: Former Smoker (Age [age]/2 a pack a day)
Alcohol: None
Drug: None
Personal: Single
Living: Alone
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
Family History
Family History: Not pertinent
Allergies / Home Medications
Allergies reflects when Allergies were last updated in [facility].
Home Medications with original date entered in [facility]
Allergy/Medication List:
Allergies
Allergy/AdvReac Type Severity Reaction Status Date / Time
No Known Allergies Allergy Verified 06/01/25 10:41
Home Medications
prednisone 15 mg PO DAILY 06/01/25
Review of Systems
-
History Source: Patient and Family (Daughter at bedside)
A 12 point ROS was completed and negative except as noted: Yes
Constitutional: Reports Fatigue; Denies Chills
EENT: Denies Sore Throat or Runny Nose
Respiratory: Denies Cough or Trouble Breathing
Cardiac: Denies Chest Pain, Palpitations or Syncope
Abdomen/GI: Reports Other (Decreased appetite); Denies Abdominal Pain, Nausea, Vomiting, Diarrhea, Constipated or Bloody Stools
: Reports Incontinence (Urine); Denies Flank Pain
Musculoskeletal: Reports Other (Bilateral leg weakness 3 out of 5); Denies Joint Pain or Edema
Skin: Denies Itching or Rash
Neurological: Reports Dizzy and Weakness (Bilateral lower legs); Denies Headache
Endocrine: Reports No Symptoms
Hematologic/Lymphatic: Reports No Symptoms
Psych: Reports Calm
Physical Exam
Vital Signs
Vital Signs
Temp Pulse Resp BP Pulse Ox
98.9 F 55 15 126/79 95
06/01/25 10:54 06/01/25 12:00 08/01/25 12:00 06/01/25 12:00 06/01/25 11:29
Physical Exam
General: Comfortable and Conversant; No Pain, Fever or Chills
HEENT: NormoCephalic, Anicteric, PERRLA (EOMs intact negative nystagmus), [place] Conjunctivae, No Ptosis and Neck Nontender
Respiratory: Clear; No Wheezes, Rales or Rhonchi
Cardiac: S1/S2 and Murmur (2/6 systolic murmur); No Rub, Gallop or Peripheral Edema
Breast: Deferred by me
GI: Soft, Non Tender, Non Distended, Normal Bowel Sounds and No Hepatosplenomegaly
Rectal: Deferred by Provider
Genito-urinary: Deferred by me
Musculoskeletal: Clubbing (To all fingernails), No Cyanosis, No Edema and Other (3 out of 5 strength bilateral lower legs upper arms 5 out of 5 strength)
Skin: Warm and Dry; No Rash or Jaundice
Neuro: AO x 3, Nonfocal/grossly intact, Cranial Nerves Intact and No Sensory Deficits; No Slurred Speech, Facial Droop or Tremors
Psych: Calm
Laboratory Results
-
06/01/25 10:36
06/01/25 10:36
Laboratory Results
Total Bilirubin 0.7 mg/dl (0.2-1.3) 06/01/25 10:36
AST 27 U/L (17-59) 06/01/25 10:36
ALT 30 U/L (0-50) 06/01/25 10:36
Alkaline Phosphatase 54 U/L (38-126) 06/01/25 10:36
Troponin I < 0.012 ng/ml 06/01/25 10:36
Data Reviewed
-
CT Scan: Report Reviewed by me
Lab Data: Labs Reviewed by me
Impression/Plan
-
Impression/plan:
Inpatient telemetry
#Generalized leg muscle weakness with bladder incontinence concern for lumbar spinal issue versus PMR exacerbation versus bladder overflow
-Check CPK, ESR, CRP, B12, sed rate, UA LEGISLATIVE ANALYST, TSH with free T4 reflex
- MRI lumbar/thoracic spine with and without
- Patient stopped Lipitor 3 days after stroke due to extreme leg weakness he also stopped his Plavix and aspirin
# Dizziness likely vasovagal event today/CVA 05/04/2025
#Hx CVA left thalamus CTA head neck 05/04/2025
- Consult neurology discussed with Dr. Casanova
- Check MRI brain
- PT/OT/case management consult
- Defer resumption of Plavix asa
-HOLd Lipitor that he stopped on own 3 days post starting due to extreme leg weakness
- HgbA1c, lipid profile
CTA head and neck 05/04/2025:
1. left thalamus, 7 mm focus of decreased density, suggesting a focus of infarction, exact timeframe uncertain. See above discussion.
2 Calcific atherosclerotic disease is present. No evidence for hemodynamically significant stenosis of either carotid bulb or proximal internal carotid artery.
3. Moderate calcification involving the cavernous internal carotid arteries bilaterally, likely with less than 50% diameter reduction.
4. Hypoplastic A1 segment of the left anterior cerebral artery, considered normal variation.
5. Mild atherosclerotic disease involving the superior vertebral arteries bilaterally, with no evidence for significant narrowing. No significant narrowing of the basilar artery and the posterior cerebral arteries.
6. Severe changes of emphysema within the visualized upper lungs. Peripheral increased interstitial markings within the upper lungs, most likely representing interstitial fibrosis.
#Acute leukocytosis unclear etiology-started before recent prednisone
WBC 16.2, afebrile 98.9F-WBC was 17.4 on 05/28/2025
Patient started prednisone 2 days ago
Follow CBC
##Polymyalgia rheumatica Dx 2019
#Giant cell arteritis 2019 via temporal artery biopsy states did 1 course of prednisone
Patient follows with rheumatology Dr. Wong [phone] extension [phone], also called [phone] no answer
was to start on prednisone 60 mg today was on prior
#Anemia, normocytic
Hgb 12 baseline for patient was 14
Will check iron panel, B12, folate
# COPD possible interstitial fibrosis�new diagnosis for patient
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
DVT prophylaxis
SCDs
DNR per patient with daughter present at bedside
--- NOTE | 2025-06-01 14:38 | CON.NEURO4 ---
Addendum entered and electronically signed by Tomi Montiel MD 06/01/25 16:00:
Studies reviewed.
I have personally examined the patient. I reviewed and agree with the [employer]'s Note.
My addenda:
Awake, alert, interactive. No acute distress.
Speech intact.
Follows 2-step requests w/o difficulty. No tremor.
Extra-ocular movements grossly intact.
Facial movements full and symmetric. Hearing intact to normal conversational volume.
Normal UE movements bilaterally.
Neck: full ROM.
Chest: no dyspnea
Heart: no JVD
Ext: (-) Clubbing, (-) Cyanosis, (-) Edema
IMPRESSIONS/RECOMMENDATIONS:
Progressive onset of bilateral lower extremity weakness with urinary incontinence
Differential diagnosis includes polymyalgia rheumatica which is not the explanation for the patient's urinary incontinence although there is an absence of fecal incontinence. Differential diagnosis for his urinary dysfunction includes prostatic
issues as well as spinal cord issues although he has been absence of hyperreflexia, as well as peripheral neuropathy
Check blood work for potential metabolic abnormalities producing symptoms
Agree with the use of prednisone to remediate polymyalgia symptoms
Rehabilitation evaluations and treatment
Check MRI of brain due to the patient's recent episode of difficulty with speech for which he was to be treated with aspirin and clopidogrel which the patient discontinued
Check MRI of thoracic and lumbar spines due to bladder dysfunction
D/W patient / family
All questions answered.
Will continue to follow pending results.
Original Note:
Documented by User: Virgie Chinchilla NP 06/01/25 15:45
Consultation - Neurology 4
-
CONSULTING PHYSICIAN: Tomi Montiel MD
REFERRING PHYSICIAN: Hospitalists/MATTY Orozco
DICTATED BY: MATTY Sharp
DATE/TIME OF REQUEST: 06/01/25
DATE/TIME OF CONSULTATION: 06/01/25
Reason for Consultation: Weakness
History of Present Illness:
This is an 80-year-old right-handed male who has presented to the hospital with report of progressive bilateral lower extremity weakness, urinary incontinence, speech changes, and dizziness. Patient reports that he is still working and walks a
significant amount at work with no difficulty at baseline. At the end of April, he notes that he suddenly developed bilateral leg weakness and was unable to walk long distances without resting frequently. He notes that his left leg may be slightly
weaker than his right leg, he feels like it is 'dragging' when he walks. He also notes sudden onset urinary incontinence. On 05/04/25 he presented to [facility] ER with report of 5 days of dysarthria and word finding difficulty. CTA head/neck was obtained
and was suggestive of a subacute left thalamic infarct, no LVO. He was started on DAPT with aspirin and clopidogrel and atorvastatin 40mg daily. He reportedly stopped taking these three days later due to increased leg weakness, attributing it to the
new medications. About one week ago, he notes that bilateral arms started feeling week in addition to his legs. 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 About 6 days
ago his leg weakness worsened even more and he presented to the ER on 05/28/25 again for evaluation. ESR was 86. 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
prednisone to 60mg daily. This morning (06/01/25), he was walking around his house and started feeling significantly dizzy, prompting his daughter to call 911. CT head was obtained on arrival in the ER and is unremarkable. Patient denies any headache,
vision changes, swallowing difficulty, leg cramping, and numbness. He notes that his speech feels hoarse, which is different from his speech issues one month ago. He continues to be incontinent of urine, no bowel incontinence. He also notes a 30lb
unintentional weight loss over the past year. In 2019 he had PMR and reports he regained his strength immediately after starting steroids.
Past Medical History: Polymyalgia rheumatica, temporal arteritis, CT head 05/04/25 suggestive of thalamic stroke
Surgical History: Temporal artery biopsy, appendectomy, tonsillectomy, R ankle fracture repair
Family History: Reviewed and noncontributory.
Social History: Former smoker. Denies alcohol and illicit drug use.
Allergies: No known allergies.
Home Medications: See below.
Review of Symptoms:
Patient denies any fever, headache, chest pain, shortness of breath, GI or symptoms.
�Per the HPI.�All systems are reviewed negative except above.
Physical Exam:
The patient is afebrile, abdomen is nondistended, breathing is unlabored, skin is warm and dry, no edema.
Neurologic Examination:
The patient is awake, alert and oriented x 3. He is able to follow commands and answer questions appropriately. There is no aphasia. Speech is mildly dysarthric and hypophonic. On cranial nerve assessment, pupils are 3 mm bilateral, round and
reactive to light and accommodation. Visual carroll are full. Extraocular movements are mildly restricted with upgaze. Facial sensations are intact and bilaterally symmetrical, there is no facial asymmetry. Hearing is intact bilaterally to normal
conversation volume. Tongue palate and uvula are midline. No tongue fasciculations. Motor strengths are 5/5 bilateral upper and 5-/5 bilateral lower extremities on medical research [place] scale. There is no drift or involuntary movement noted, no
fasciculations. Deep tendon reflexes are 2+ bilateral upper and lower extremities and Babinski is absent bilaterally. Sensation of cold and vibration are severely reduced in distal bilateral lower extremities. There was no extinction noted on double
simultaneous stimulation. Coordination is intact by finger to nose bilaterally.
Lab Results: See below.
Neuro Imaging:
1. CTA head/neck 05/04/25: In the left thalamus, 7 mm focus of decreased density, suggesting a focus of infarction, exact timeframe uncertain. See above discussion. Calcific atherosclerotic disease is present. No evidence for hemodynamically
significant stenosis of either carotid bulb or proximal internal carotid artery. Moderate calcification involving the cavernous internal carotid arteries bilaterally, likely with less than 50% diameter reduction. Hypoplastic A1 segment of the left
anterior cerebral artery, considered normal variation. Mild atherosclerotic disease involving the superior vertebral arteries bilaterally, with no evidence for significant narrowing. No significant narrowing of the basilar artery and the posterior
cerebral arteries. Severe changes of emphysema within the visualized upper lungs. Peripheral increased interstitial markings within the upper lungs, most likely representing interstitial fibrosis.
2. CT Head 06/01/25: No acute intracranial abnormality.
Differentials for the patient's presentation include:
1. Polymyalgia rheumatica likely contributing to patient's symptoms.
2. Unclear etiology of sudden onset urinary incontinence.
3. CT head on 05/04/25 was suggestive of a thalamic infarct, not visualized on CT head imaging from today.
Patient has the following risk factors for their symptoms: Hx PMR
Recommendations:
-Continue aspirin 81mg daily.
-Continue steroids per Rheumatology.
-MRI brain noncontrast, MRI thoracic and lumbar spine w/ and w/o contrast pending.
-Goal normotension.
-Checking blood work for metabolic abnormalities.
-PT/OT/ST evaluations.
-DVT prophylaxis.
Discussed patient care with: Dr. Montiel, the patient, patient's daughter
Vital Signs and Labs
-
Vital Signs and Labs:
Vital Signs
Temp Pulse Resp BP Pulse Ox
98.9 F 68 24 182/83 96
06/01/25 10:54 06/01/25 14:33 06/01/25 14:33 06/01/25 14:33 06/01/25 14:33
Lab Results
06/01/25 10:36
06/01/25 10:36
Sodium 137 mmol/L (135-145) 06/01/25 10:36
Potassium 3.9 mmol/L (3.5-5.1) 06/01/25 10:36
BUN 23 mg/dl (9-20) H 06/01/25 10:36
Glucose 137 mg/dl (70-99) H 06/01/25 10:36
Calcium 7.9 mg/dl (8.4-10.2) L 06/01/25 10:36
Medications
-
Active Medications
Generic Name Dose Route Start Last Admin
Trade Name Nigel AVILA Reason Stop Dose Admin
Famotidine 20 mg 06/02/25 08:00
Famotidine 20 Mg Tablet PO 06/30/25 07:59
DAILY SIMONE
Home Medications
�Medication �Instructions �Recorded
prednisone 15 mg PO DAILY 06/01/25
NIH Stroke Score
Subsequent NIH Scale
Date of Subsequent NIH Scale: 06/01/25
Time of Subsequent NIH Scale: 15:00
NIH Stroke Score
Level of Consciousness: 0 - Alert
LOC Questions: 0-Answers both correctly
LOC Commands: 0-Performs both correctly
Best Horizontal Gaze: 0-Normal
Visual Carroll: 0=Normal, no visual loss
Facial Palsy: 0=Normal, symmetrical
Motor - Right Arm: 0=No drift 10 seconds
Motor - Left Arm: 0=No drift 10 seconds
Motor - Right Le-No drift 5 seconds
Motor - Left Le-No drift 5 seconds
Limb Ataxia: 0-Absent
Sensation: 0-Normal
Best Language: 0-No aphasia
Dysarthria: 1-Mild slurring
Extinction and Inattention: 0-No abnormality
NIH Total Score:: 1

Documented by User: Tomi Montiel MD 06/01/25 15:54
NIH Stroke Score
NIH Stroke Score
NIH Total Score:: 1
[2025-06-01] MEDS: DELTASONE 60 MG PO (15:29)
[2025-06-01] MEDS: PEPCID 20 MG PO (15:29)
[2025-06-01 15:57] LABS: Urine Character Clear (Clear)
[2025-06-01 16:08] LABS: Urine Squamous Cell 0-2 /LPF (Few)
[2025-06-01 16:21] LABS: C-Reactive Protein 49.10 mg/L (0.0-10.00)
[2025-06-01 16:39] LABS: Vitamin D, 25-OH*** 18.5 ng/mL (30-80)
[2025-06-01 16:57] LABS: Ferritin 372.0 ng/ml (17.9-464.0)
[2025-06-01 17:30] LABS: Folate 5.4 ng/ml (2.76-20); Vitamin B12 170 pg/ml (239-931)
--- NOTE | 2025-06-01 19:02 | PTCARENOTE ---
pt arrived to unit at 1830 via stretcher from ED. pt pulled over from stretcher to bed. pt family member at the Bedside. BP elevated, cam maker RN made aware, other VSS. pt situated in room, introduced to night shit RN.
--- NOTE | 2025-06-01 23:07 | W.PN.UPDATE ---
Update Note
Progress Note Update
Patient seen and examined independently.
Pelase see [employer] note for full details.
80-year-old man with bilateral leg weakness with cramping starting 05/07/2025 3 days after being diagnosed with a stroke. He presented with speech difficulty, intermittently. He stopped taking aspirin, Plavix, Lipitor 3 days poststroke as he
thought these meds were making his legs weak. He was seen yesterday 05/29/2025 by rheumatology was recommended for prednisone to increase to 60 mg. He was also treated for giant cell arteritis in 2019. He denies current dizziness, vertigo,
headache, sore throat, fever, chills, chest pain, palpitations, cough, shortness of breath, abdominal pain, nausea, vomiting, diarrhea, or rash. He has past medical history of PMR 2019, giant cell arteritis 2019. At the time of my interview he was
comfortable.
Past Medical History
PMR 2019
giant cell arteritis 2019
former smoker 5 years age [age] 11/02 ppd
Appendectomy
Tonsillectomy
Left shoulder reconstruction
Right ankle fracture repair
Physical Exam
General: Comfortable and Conversant;
HEENT: NormoCephalic, A
Respiratory: Clear;
Cardiac: S1/S2
GI: Soft,
Skin: Warm and Dry;
Psych: Calm
CTA head and neck 05/04/2025:
1. left thalamus, 7 mm focus of decreased density, suggesting a focus of infarction, exact timeframe uncertain. See above discussion.
2 Calcific atherosclerotic disease is present. No evidence for hemodynamically significant stenosis of either carotid bulb or proximal internal carotid artery.
3. Moderate calcification involving the cavernous internal carotid arteries bilaterally, likely with less than 50% diameter reduction.
4. Hypoplastic A1 segment of the left anterior cerebral artery, considered normal variation.
5. Mild atherosclerotic disease involving the superior vertebral arteries bilaterally, with no evidence for significant narrowing. No significant narrowing of the basilar artery and the posterior cerebral arteries
6. Severe changes of emphysema within the visualized upper lungs. Peripheral increased interstitial markings within the upper lungs, most likely representing interstitial fibrosis.
Impression/plan:
1. Generalized leg muscle weakness, with bladder incontinence leading to concern for lumbar spinal issue versus PMR exacerbation versus bladder overflow
Neuro consult
Check CPK, ESR, CRP, B12, sed rate, UA ANIMAL CARE TECHNICIAN, TSH with free T4 reflex
Check MRI lumbar/thoracic spine with and without contrast
2. Dizziness (likely vasovagal event today but had CVA 05/04/2025: CVA left thalamus CTA head neck 05/04/2025)
Consulted neurology, case discussed with Dr. Casanova
MRI brain
PT/OT/case management consult
HgbA1c, lipid profile
3. Acute leukocytosis, unclear etiology with WBC 16.2, afebrile 98.9F - WBC was 17.4 on 05/28/2025
Follow CBC
See [employer] note for full details on
Polymyalgia rheumatica
Giant cell arteritis
Anemia, normocytic
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
[2025-06-02] VITALS (7 sets, daily range): BP systolic 114–152; BP diastolic 61–81; PULSE 76; O2SAT 97; BMI 19.0
[2025-06-02 00:05] LABS: Urine Character Clear (Clear)
[2025-06-02 00:53] LABS: Urine Squamous Cell None seen /LPF (Few)
[2025-06-02 00:54] LABS: Urine Red Blood Cell None Seen /HPF (0-2)
[2025-06-02] MEDS: LOW STRENGTH ASPIRIN 81 MG PO (08:18)
[2025-06-02] MEDS: ZITHROMAX 500 MG PO (08:18)
[2025-06-02] MEDS: OSCAL 500 + D 1000 MG PO (08:18)
[2025-06-02] MEDS: PEPCID 20 MG PO (08:19)
[2025-06-02] MEDS: CYANOCOBALAMIN 1000 MCG IM (08:19)
[2025-06-02] MEDS: DELTASONE 60 MG PO (08:19)
[2025-06-02] MEDS: ROCEPHIN 1000 MG IV (08:19)
[2025-06-02] MEDS: STERILE WATER FOR INJECTION 10 ML IV (08:19)
[2025-06-02 09:09] LABS: Hematocrit 34.6 % (39.0-52.0); Hemoglobin 11.4 g/dL (13.0-18.0); Mean Corp Hgb Conc. 32.9 g/dL (33.0-37.0); Mean Corpuscular Volume 87.6 fL (80.0-94.0); Nucleated Red Blood Cells % 0 % (-); Platelet Count 359 10^3/uL (130-400); Red Cell Dist. Width 13.6 % (11.5-14.5)
[2025-06-02 09:43] LABS: ALT (SGPT) 23 U/L (0-50); AST (SGOT) 18 U/L (17-59); Albumin 2.7 g/dl (3.5-5.0); Alkaline Phosphatase 49 U/L (38-126); Blood Urea Nitrogen 27 mg/dl (9-20); Calcium 8.3 mg/dl (8.4-10.2); Carbon Dioxide 28 mmol/L (22-30); Chloride 107 mmol/L (98-107); Estimated Creatinine Clearance 68 ml/min; Glucose 93 mg/dl (70-99); HDL Cholesterol 39 mg/dl; LDL Cholesterol, Calculated 96 mg/dl; Magnesium 2.1 mg/dl (1.6-2.3); Potassium 4.2 mmol/L (3.5-5.1); Sodium 138 mmol/L (135-145); Total Protein 5.7 g/dl (6.3-8.2); Very Low Density Lipoprotein 18 mg/dl (0-30); eGFR > 60.00
[2025-06-02 10:55] LABS: Glycohemoglobin (HgbA1c) 5.9 % (4.0-5.6)
--- NOTE | 2025-06-02 12:07 | W.PN.HOSP.TC ---
Today's Communication/Plan
-
Monitor vital signs and see plan
PT evaluation
Aspirin started by me
Vitamin B12
Continue with ceftriaxone and azithromycin
Speech evaluation
Assessment / Plan
Assessment / Plan
General: Comfortable and Conversant
HEENT: NormoCephalic, Anicteric
Respiratory: Clear; No Wheezes, Rales or Rhonchi
Cardiac: S1/S2 and Murmur (2/6 systolic murmur)
GI: Soft, Non Tender, Non Distended, Normal Bowel Sounds
Skin: Warm and Dry; No Rash or Jaundice
Neuro: AO x 3, Nonfocal/grossly intact
Psych: Calm
Generalized leg muscle weakness with bladder incontinence concern for lumbar spinal issue versus PMR exacerbation versus bladder overflow
- CK normal, low vitamin B12
- MRI lumbar/thoracic spine noted with T7-T8 small left paracentral disc protrusion which appeared to slightly compress the left anterior margin of thoracic spinal cord. Normal morphology and signal intensity
Acute CVA
#Hx CVA left thalamus CTA head neck 05/04/2025
Neurology following
Aspirin recommended by neurology, started by me
MRI brain with bilateral thalami and posterior right basal ganglia infarction
Check echo
- PT/OT
A1c 5.9
CTA head and neck 05/04/2025:
1. left thalamus, 7 mm focus of decreased density, suggesting a focus of infarction, exact timeframe uncertain. See above discussion.
2 Calcific atherosclerotic disease is present. No evidence for hemodynamically significant stenosis of either carotid bulb or proximal internal carotid artery.
3. Moderate calcification involving the cavernous internal carotid arteries bilaterally, likely with less than 50% diameter reduction.
4. Hypoplastic A1 segment of the left anterior cerebral artery, considered normal variation.
5. Mild atherosclerotic disease involving the superior vertebral arteries bilaterally, with no evidence for significant narrowing. No significant narrowing of the basilar artery and the posterior cerebral arteries.
6. Severe changes of emphysema within the visualized upper lungs. Peripheral increased interstitial markings within the upper lungs, most likely representing interstitial fibrosis.
Vitamin B12 deficiency
Replete
Suspect community-acquired pneumonia
Chest x-ray consistent with pneumonia
Started ceftriaxone, azithromycin
Monitor
Speech evaluation given recent CVA
##Polymyalgia rheumatica Dx 2019
#Giant cell arteritis 2019 via temporal artery biopsy states did 1 course of prednisone
Patient follows with rheumatology Dr. Wong [phone] extension [phone]
Recently prednisone increased to 60 mg daily. Per patient rheumatology structured him to continue 60 mg daily for 1 week and then taper by 10 every week
#Anemia, normocytic
Monitor
# COPD possible interstitial fibrosis�new diagnosis for patient
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
DVT prophylaxis
SCDs, hep
DNR per patient with daughter present at bedside
I spent a total of 52 minutes with the patient or on the floor. More than 50% of this time involved counseling and coordination of care.
Anticipated Discharge: 24 - 48 hours
Subjective/Interval History
-
Date of Service: June 02, 2025
Denies pain
Objective Data
-
Labs:
Laboratory Results
06/02/25
08:21
WBC 11.9 H
Hgb 11.4 L
Hct 34.6 L
Plt Count 359
Sodium 138
Potassium 4.2
Chloride 107
Carbon Dioxide 28
BUN 27 H
Creatinine 0.8
Glucose 93
Calcium 8.3 L
Total Bilirubin 0.5
AST 18
ALT 23
Alkaline Phosphatase 49
Vital Signs:
Vital Signs
Temp Pulse Resp BP Pulse Ox
97.3 F 69 18 130/74 97
06/02/25 11:35 06/02/25 11:35 06/02/25 11:35 06/02/25 11:35 06/02/25 11:35
I&O
06/01/25 06/02/25 06/03/25
06:59 06:59 06:59
Output Total 350 / 350
Balance -350 / -350
--- NOTE | 2025-06-02 13:26 | W.PN.NEURO.1 ---
Today's Communication / Plan
-
21 days of DAPT
DANIELLA if patient agrees
Neuro Assessment/Plan
Assessment
head CT 05/04 imgs rev'd with patient showing left thalamic stroke
MRI imgs rev'd with patient showing acute/subacute infarcts of varying ages, mostly thalamic/posterior circulation though tiny infarct also in the right external capsule means multiple territory
HDL 39, LDL 96
continue ASA 81, start Lipitor 40, plavix x21 days. spoke with patient that these meds are not to help him feel good but to help reduce stroke risk, he's agreeable to try taking them again
with this pattern suspicion is for embolic etiology, discussed further workup, at our option DANIELLA, then if negative additional afib screening Z[employer] watch etc
patient still deciding if he's willing and if so then cardiology consult for DANIELLA
Subjective/Objective
Subjective Data
Date of Service: June 02, 2025
no acute complaints, continues with leg weakness,urinary incontinence
on abx for CAP.
on chart review, he was seen 05/04, head CT showing age indeterminate but suspected acute stroke left thalamus; patient discharged on DAPT and lipitor which he reported taking for 3 days. 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
and climbing, felt weak and stopped taking the meds. for the weakness yesterday his predisone was increased from 15-->60 mg, and he hasn't noticed any difference yet
Objective Data
Vital Signs
Temp Pulse Resp BP Pulse Ox
36.3 C 69 18 130/74 97
06/02/25 11:35 06/02/25 11:35 06/02/25 11:35 06/02/25 11:35 06/02/25 11:35
Lab Results
06/02/25 08:21
06/02/25 08:21
Sodium 138 mmol/L (135-145) 06/02/25 08:21
Potassium 4.2 mmol/L (3.5-5.1) 06/02/25 08:21
BUN 27 mg/dl (9-20) H 06/02/25 08:21
Glucose 93 mg/dl (70-99) 06/02/25 08:21
Calcium 8.3 mg/dl (8.4-10.2) L 06/02/25 08:21
LDL Cholesterol, Calc 96 mg/dl 06/02/25 08:21
Vitamin B12 170 pg/ml (239-931) L 06/01/25 10:36
Patient Allergies
No Known Allergies Allergy (Verified 06/01/25 10:41)
[2025-06-02] MEDS: PLAVIX 75 MG PO (14:34)
--- NOTE | 2025-06-02 15:04 | PTOTSP ---
Speech Therapy Evaluation:
Pt with chronic risk factors of dysphagia including recent CVA (05/04), COPD, and possible interstitial fibrosis (new diagnosis for pt), acutely compounded by R basal ganglia and bilateral thalami infarcts. At bedside, oral phase functional. No overt
coughing appreciated. Did observe hoarse and intermittent wet vocal quality in the absence of PO intake that did not appear to increase with trials. Pt attributed wet vocal quality to excess phlegm and a little 'tickle,' however reported these
symptoms are chronic for several months. CXR with current bilateral pneumonia and severe changes of emphysema within both lungs with some mild peripheral interstitial fibrosis.
Given vocal quality changes (hoarseness and intermittently wet) are not acute in nature, pt is afebrile, and on room air, recommend to cautiously continue oral diet. Would highly consider instrumental assessment, such as FEES, in the setting of
hoarseness, acute CVA, and bilateral pneumonia. TAKE OUT WAITER/WAITRESS to closely follow to determine if/when appropriate pending hospitalization.
Recommend:
1. Cautiously continue oral diet of regular solids and thin liquids
2. Medications as tolerated
3. Clear throat for wet vocal quality
4. D/c oral diet if any worsening in respiratory status or chest imaging
5. TAKE OUT WAITER/WAITRESS to follow to monitor tolerance of diet, determine if/when instrumental assessment appropriate, and for further cognitive evaluation as warranted
[2025-06-02] MEDS: HEPARIN 5000 UNITS SC ×2 (17:07→23:05)
[2025-06-02] MEDS: LIPITOR 40 MG PO (17:08)
[2025-06-03] VITALS (7 sets, daily range): BP systolic 121–164; BP diastolic 74–87; PULSE 58; BMI 18.9
[2025-06-03 08:22] LABS: Hematocrit 40.0 % (39.0-52.0); Hemoglobin 12.8 g/dL (13.0-18.0); Mean Corp Hgb Conc. 32.0 g/dL (33.0-37.0); Mean Corpuscular Volume 87.3 fL (80.0-94.0); Nucleated Red Blood Cells % 0 % (-); Platelet Count 415 10^3/uL (130-400); Red Cell Dist. Width 13.7 % (11.5-14.5)
[2025-06-03 08:52] LABS: ALT (SGPT) 29 U/L (0-50); AST (SGOT) 25 U/L (17-59); Albumin 3.0 g/dl (3.5-5.0); Alkaline Phosphatase 54 U/L (38-126); Blood Urea Nitrogen 28 mg/dl (9-20); Calcium 8.6 mg/dl (8.4-10.2); Carbon Dioxide 28 mmol/L (22-30); Chloride 105 mmol/L (98-107); Estimated Creatinine Clearance 68 ml/min; Glucose 80 mg/dl (70-99); Potassium 4.2 mmol/L (3.5-5.1); Sodium 139 mmol/L (135-145); Total Protein 6.0 g/dl (6.3-8.2); eGFR > 60.00
[2025-06-03] MEDS: LOW STRENGTH ASPIRIN 81 MG PO (08:54)
[2025-06-03] MEDS: CYANOCOBALAMIN 1000 MCG IM (08:54)
[2025-06-03] MEDS: OSCAL 500 + D 1000 MG PO (08:55)
[2025-06-03] MEDS: HEPARIN 5000 UNITS SC ×3 (08:55→23:49)
[2025-06-03] MEDS: PEPCID 20 MG PO (08:55)
[2025-06-03] MEDS: ZITHROMAX 500 MG PO (08:56)
[2025-06-03] MEDS: DELTASONE 60 MG PO (08:56)
[2025-06-03] MEDS: PLAVIX 75 MG PO (08:56)
[2025-06-03] MEDS: ROCEPHIN 1000 MG IV (08:56)
[2025-06-03] MEDS: STERILE WATER FOR INJECTION 10 ML IV (08:57)
--- NOTE | 2025-06-03 11:05 | W.PN.HOSP.TC ---
Today's Communication/Plan
-
monitor vitals
see plan
cw DAPT
neurology following; likely need cards eval for DANIELLA
cw CFTX and azithro
cw prednisone
Assessment / Plan
Assessment / Plan
General: Comfortable and Conversant
HEENT: NormoCephalic, Anicteric
Respiratory: Clear; No Wheezes, Rales or Rhonchi
Cardiac: S1/S2 and Murmur (2/6 systolic murmur)
GI: Soft, Non Tender, Non Distended, Normal Bowel Sounds
Neuro: AO x 3, Nonfocal/grossly intact
Psych: Calm
Generalized lower extremity weakness
- CK normal, low vitamin B12
- MRI lumbar/thoracic spine noted with T7-T8 small left paracentral disc protrusion which appeared to slightly compress the left anterior margin of thoracic spinal cord. Normal morphology and signal intensity
Acute CVA
#Hx CVA left thalamus CTA head neck 05/04/2025
Neurology following
Continue with aspirin and Plavix for 21 days and then aspirin alone
MRI brain with bilateral thalami and posterior right basal ganglia infarction
Discussed with neurology, appears embolic, they recommended DANIELLA if patient agrees. Neurology will consult cardiology
- PT/OT recommending acute rehab. Please contact [facility] tomorrow for evaluation
A1c 5.9
CTA head and neck 05/04/2025:
1. left thalamus, 7 mm focus of decreased density, suggesting a focus of infarction, exact timeframe uncertain. See above discussion.
2 Calcific atherosclerotic disease is present. No evidence for hemodynamically significant stenosis of either carotid bulb or proximal internal carotid artery.
3. Moderate calcification involving the cavernous internal carotid arteries bilaterally, likely with less than 50% diameter reduction.
4. Hypoplastic A1 segment of the left anterior cerebral artery, considered normal variation.
5. Mild atherosclerotic disease involving the superior vertebral arteries bilaterally, with no evidence for significant narrowing. No significant narrowing of the basilar artery and the posterior cerebral arteries.
6. Severe changes of emphysema within the visualized upper lungs. Peripheral increased interstitial markings within the upper lungs, most likely representing interstitial fibrosis.
Vitamin B12 deficiency
Replete
Intermittent periods of high blood pressure
Given acute CVA, will start patient on low-dose amlodipine. Uptitrate as needed
Prediabetes
A1c 5.9
Monitor
Suspect community-acquired pneumonia
Chest x-ray consistent with pneumonia
cw ceftriaxone, azithromycin
Monitor
Speech evaluation given recent CVA, okay for regular diet
##Polymyalgia rheumatica Dx 2019
#Giant cell arteritis 2019 via temporal artery biopsy states did 1 course of prednisone
Patient follows with rheumatology Dr. Wong [phone] extension [phone]
Recently prednisone increased to 60 mg daily. Per patient rheumatology structured him to continue 60 mg daily for 1 week and then taper by 10 every week
#Anemia, normocytic
Monitor
# COPD possible interstitial fibrosis�new diagnosis for patient
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
DVT prophylaxis
SCDs, hep
DNR per patient with daughter present at bedside
Anticipated Discharge: 24 - 48 hours
Subjective/Interval History
-
Date of Service: June 03, 2025
denies pain
Objective Data
-
Labs:
Laboratory Results
06/03/25
08:03
WBC 12.6 H
Hgb 12.8 L
Hct 40.0
Plt Count 415 H
Sodium 139
Potassium 4.2
Chloride 105
Carbon Dioxide 28
BUN 28 H
Creatinine 0.8
Glucose 80
Calcium 8.6
Total Bilirubin 0.4
AST 25
ALT 29
Alkaline Phosphatase 54
Vital Signs:
Vital Signs
Temp Pulse Resp BP Pulse Ox
97.5 F 66 16 152/75 97
06/03/25 07:40 08/03/25 07:40 06/03/25 07:40 06/03/25 07:40 06/03/25 07:40
I&O
06/02/25 06/03/25 06/04/25
06:59 06:59 06:59
Intake Total 1440 / 1440
Output Total 350 / 350 450 / 450
Balance -350 / -350 990 / 990
[2025-06-03] MEDS: NORVASC 2.5 MG PO (12:29)
--- NOTE | 2025-06-03 15:22 | CON.CAR ---
Consultation
Consultation Request
Date/Time Consultation Requested: June 03, 2025 11 AM
Date/Time Consultation Performed: June 03, 2025 3:23 PM
Requesting Provider: Neurology
Performing Provider: Vicente Fam
Reason for Consultation: b/l leg weakness
Medical History
-
Chief Complaint: dizziness, b/l leg weakness, urinary incontinence
Past Medical History
Past Medical History: Other ( PMR 2019, giant cell arteritis 2019, former smoker )
Past Surgical History: Other (Appendectomy, Tonsillectomy, Left shoulder reconstruction, Right ankle fracture repair)
Social History
Tobacco: Former Smoker
Alcohol: None
Drug: None
Personal: Single
Living: Alone
Family History
Family History: Reviewed & Not Pertinent
Allergies / Home Medications
Allergy/AdvReac Type Severity Reaction Status Date / Time
No Known Allergies Allergy Verified 06/01/25 10:41
�Medication �Instructions �Recorded �Confirmed �Type
prednisone 15 mg PO DAILY Anti-Inflammatory 06/01/25 06/01/25 History
Review of Systems
-
All other systems: Negative unless noted
Physical Exam
Vital Signs
Temp Pulse Resp BP Pulse Ox
97.6 F 58 16 121/74 94
06/03/25 11:45 06/03/25 12:29 06/03/25 11:45 06/03/25 12:29 06/03/25 11:45
Lab Results
06/03/25 08:03
06/03/25 08:03
Troponin I < 0.012 ng/ml 06/01/25 10:36
Physical Exam
General: Well Developed and Well Nourished
HEENT: Normocephalic
Respiratory: Clear and Non Labored Respirations
Cardiac: S1/S2 and Regular Rhythm
GI: Soft and Normal Bowel Sounds
Musculoskeletal: No Edema
Skin: Warm and Dry
Neuro: AO x 3
Psych: Calm
Impression / Plan
-
A/P: 80-year-old male with past medical history of polymyalgia rheumatica, giant cell arteritis, CVA in the beginning of May with CTA showing possible infarction on May 04, and recent dizziness with leg weakness and urinary incontinence found to
have multiple areas of likely infarction.
CVA
- Neurology following
- echocardiogram pending will obtain tomorrow morning if no sign of clot we will try to add-on for DANIELLA either later June 03 or the following day
- Had symptoms of intermittent dizziness possible related to CVA versus vasovagal
PMR and giant cell arteritis
- Follows with rheumatology
Normocytic anemia
- Per primary
Data Reviewed
-
EKG: Tracing Personally Visualized and interpreted (sr)
Medical Tests (Nuc Med, Echo etc): Report Reviewed by me
Labs: Labs Reviewed by me
--- NOTE | 2025-06-03 16:32 | CM ---
Met with patient to obtain information for assessment. 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 He has cg for
his Pia. He has never had VN. Never been to a SNF.
Plan: Case management will continue to follow and assist with discharge planning. Most likely no needs.
[2025-06-03] MEDS: LIPITOR 40 MG PO (17:42)
[2025-06-04 03:45] VITALS: BP 144/95
[2025-06-04 05:34] LABS: Hematocrit 39.1 % (39.0-52.0); Hemoglobin 12.7 g/dL (13.0-18.0); Mean Corp Hgb Conc. 32.5 g/dL (33.0-37.0); Mean Corpuscular Volume 86.9 fL (80.0-94.0); Nucleated Red Blood Cells % 0 % (-); Platelet Count 425 10^3/uL (130-400); Red Cell Dist. Width 13.5 % (11.5-14.5)
[2025-06-04 05:56] LABS: ALT (SGPT) 30 U/L (0-50); AST (SGOT) 25 U/L (17-59); Albumin 3.2 g/dl (3.5-5.0); Alkaline Phosphatase 55 U/L (38-126); Blood Urea Nitrogen 22 mg/dl (9-20); Calcium 8.8 mg/dl (8.4-10.2); Carbon Dioxide 30 mmol/L (22-30); Chloride 104 mmol/L (98-107); Estimated Creatinine Clearance 68 ml/min; Glucose 88 mg/dl (70-99); Potassium 4.4 mmol/L (3.5-5.1); Sodium 138 mmol/L (135-145); Total Protein 6.2 g/dl (6.3-8.2); eGFR > 60.00
[2025-06-04 06:00] VITALS: BMI 18.8
[2025-06-04 07:41] VITALS: BP 142/84
[2025-06-04] MEDS: ROCEPHIN 1000 MG IV (07:56)
[2025-06-04] MEDS: HEPARIN 5000 UNITS SC ×2 (07:56→17:39)
[2025-06-04] MEDS: CYANOCOBALAMIN 1000 MCG IM (07:57)
[2025-06-04] MEDS: STERILE WATER FOR INJECTION 10 ML IV (07:57)
[2025-06-04] MEDS: LOW STRENGTH ASPIRIN 81 MG PO (07:58)
[2025-06-04] MEDS: PEPCID 20 MG PO (07:58)
[2025-06-04] MEDS: DELTASONE 60 MG PO (07:58)
[2025-06-04] MEDS: ZITHROMAX 500 MG PO (07:59)
[2025-06-04] MEDS: PLAVIX 75 MG PO (07:59)
[2025-06-04] MEDS: NORVASC 2.5 MG PO (07:59)
[2025-06-04] MEDS: OSCAL 500 + D 1000 MG PO (08:00)
--- NOTE | 2025-06-04 10:27 | W.PN.HOSP.TC ---
Today's Communication/Plan
-
see A/P
Assessment / Plan
Assessment / Plan
HPI: 80-year-old M with past medical history of PMR 2019, giant cell arteritis 2019, p/w bilateral leg weakness with cramping that started 05/07/2025 3 days after being diagnosed with a stroke. He stopped taking aspirin, Plavix, Lipitor 3 days
poststroke as he thought these meds were making his legs weak.
He was seen on 05/29/2025 by rheumatology was recommended for prednisone to increase to 60 mg.
A/P:
# Generalized lower extremity weakness due to acute stroke
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
CK normal, low vitamin B12
MRI lumbar/thoracic spine noted with T7-T8 small left paracentral disc protrusion which appeared to slightly compress the left anterior margin of thoracic spinal cord. Normal morphology and signal intensity.
MRI brain with bilateral thalami and posterior right basal ganglia infarction.
Continue with aspirin and Plavix for 21 days and then aspirin alone
Neurology following, felt stroke embolic, recommended DANIELLA if patient agrees.
Card on board, plan for TTE and if unrevealing, would consider DANIELLA
PT/OT recommending acute rehab. PMNR consulted
Of note, A1c 5.9
LDL 96, started Lipitor 40 mg
# Vitamin B12 deficiency
Replete
# Intermittent periods of high blood pressure
Given acute CVA, patient was started with low-dose amlodipine 2.5 mg. Uptitrate as needed
# Prediabetes
A1c 5.9
Monitor
# Suspect community-acquired pneumonia
Chest x-ray consistent with pneumonia
cw ceftriaxone, azithromycin total 5 days
Speech evaluation given recent CVA, okay for regular diet, but recc FEES
# Polymyalgia rheumatica Dx 2019
# Giant cell arteritis 2019 via temporal artery biopsy states did 1 course of prednisone
Patient follows with rheumatology Dr. Wong [phone] extension [phone]
Recently prednisone increased to 60 mg daily. Per patient rheumatology structured him to continue 60 mg daily for 1 week and then taper by 10 every week
# Anemia, normocytic
Monitor
# COPD possible interstitial fibrosis�new diagnosis for patient
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
DVT prophylaxis: SCDs, hep
DNR per patient with daughter present at bedside
Dispo: Bee per PT recc
DW SPL
DW RN
updated daughter on the phone
total time spent 51 min
Anticipated Discharge: 24 - 48 hours
Subjective/Interval History
-
Date of Service: June 04, 2025
Objective Data
-
Labs:
Laboratory Results
06/04/25
05:10
WBC 11.6 H
Hgb 12.7 L
Hct 39.1
Plt Count 425 H
Sodium 138
Potassium 4.4
Chloride 104
Carbon Dioxide 30
BUN 22 H
Creatinine 0.8
Glucose 88
Calcium 8.8
Total Bilirubin 0.4
AST 25
ALT 30
Alkaline Phosphatase 55
Vital Signs:
Vital Signs
Temp Pulse Resp BP Pulse Ox
36.4 C 72 22 142/84 98
06/04/25 07:41 06/04/25 07:41 06/04/25 07:41 06/04/25 07:41 06/04/25 07:41
I&O
06/03/25 06/04/25 06/05/25
06:59 06:59 06:59
Intake Total 1440 / 1440 1560 / 1560
Output Total 450 / 450 925 / 925
Balance 990 / 990 635 / 635
Review of Systems
-
History Source: Patient
All other systems: Reviewed and negative
Physical Exam
-
General: Well Developed, Well Nourished, No Apparent Distress, Comfortable and Conversant; Negative Respiratory Distress
HEENT: Normocephalic, Atraumatic, Nose Appears Normal and Ears Appear Normal; Negative Oxygen
Respiratory: Clear to Auscultation and Non Labored Respirations; Negative Accessory Resp Muscle Use
Cardiac: Regular Rhythm and S1/S2
GI: Soft, Nontender, Nondistended and Normal Bowel Sounds
Skin: Warm and Dry
Neuro: Awake, Alert, Oriented and AO x 3
Psych: Calm and Intact Judgement/Insight
Data Reviewed
-
MRI: Report Reviewed by me
Labs: Labs Reviewed by me
--- NOTE | 2025-06-04 11:05 | W.PN.CD ---
Addendum entered and electronically signed by Vicente Fam MD 06/05/25 13:56:
Unremarkable DANIELLA as below.
OK to d/c from cardiology perspective
DANIELLA CONCLUSIONS
Normal biventricular size and systolic function without regional wall motion
abnormality.
Left ventricular ejection fraction is visually estimated 60 to 65%
No left atrial appendage thrombus
Trace mitral regurgitation
Trileaflet sclerotic aortic valve with mild aortic regurgitation
Mild tricuspid regurgitation
Estimated pulmonary artery systolic pressure 23-25 mmHg assuming a right atrial
pressure of 3 to 5 mmHg
Intact interatrial septum by color flow Doppler and negative agitated saline,
bubble study
Aortic plaque seen in descending aorta
Compared to transthoracic echocardiogram dated 06/04/2025, mitral and aortic
regurgitation appears improved
Original Note:
Today's Communication / Plan
-
Echo then DANIELLA if no thrombus on echo
Impression / Plan
-
A/P: 80-year-old male with past medical history of polymyalgia rheumatica, giant cell arteritis, CVA in the beginning of May with CTA showing possible infarction on May 04, and recent dizziness with leg weakness and urinary incontinence found to
have multiple areas of likely infarction.
CVA
- Neurology following
- echocardiogram pending
- DANIELLA if echo unremarkable either later today vs tomorrow
- Had symptoms of intermittent dizziness possible related to CVA versus vasovagal
PMR and giant cell arteritis
- Follows with rheumatology
Normocytic anemia
- Per primary
Physical Exam
Vital Signs/Labs
Vital Signs
Temp Pulse Resp BP Pulse Ox
97.5 F 72 22 142/84 98
06/04/25 07:41 06/04/25 07:41 06/04/25 07:41 06/04/25 07:41 06/04/25 07:41
06/03/25 06/04/25 06/05/25
06:59 06:59 06:59
Actual Weight 143 lb 2 oz 142 lb 5 oz
06/04/25 05:10
06/04/25 05:10
Magnesium 2.1 mg/dl (1.6-2.3) 06/02/25 08:21
Triglycerides 92 mg/dl (10-149) 06/02/25 08:21
LDL Cholesterol, Calc 96 mg/dl 06/02/25 08:21
VLDL Cholesterol, Calc 18 mg/dl (0-30) 06/02/25 08:21
HDL Cholesterol 39 mg/dl 06/02/25 08:21
LAB Results
06/01/25
10:36
Troponin I < 0.012
Physical Exam
Constitutional: No acute distress
EENT: Anicteric
Cardiovascular: Rhythm & rate is regular and Pedal edema is absent
Respiratory: Respiratory effort normal and Lungs clear to auscul.
GI: Soft
Neuro/Psych: Alert and Oriented
Data Reviewed
-
Date of Service: June 04, 2025
EKG: Tracing Personally Visualized and interpreted (sr)
Labs: Labs Reviewed by me
[2025-06-04 15:26] VITALS: BP 132/75; BP 147/81; PULSE 75; O2SAT 99
[2025-06-04 15:45] VITALS: BP 119/77
--- NOTE | 2025-06-04 16:55 | CON.MD ---
Documented by User: Marietta Hensley PA-C 06/04/25 20:19
Consultation - Medical
-
Referring Provider:�Chante Parker
Chief Complaint:�Bilateral leg weakness, CVA
�
History of Present Illness:�Patient is an 80-year-old male who presented to the ED on 06/01/2025 with complaint of dizziness, cold sweats and worsening bilateral lower extremity weakness. Patient notably was in the ED on 05/04/2025 with a stroke and
was discharged on Aspirin, Plavix and Lipitor which he stopped 3 days after his discharge due to increasing bilateral legs weakness. CT scan of the head this admission showed no acute intracranial abnormalities, MRI reveals foci of restricted
diffusion within the bilateral thalami and posterior right basal ganglia consistent with acute infarcts. Neurology recommended continuing aspirin and Plavix for 21 days and then aspirin alone. Recommended DANIELLA as felt stroke to be embolic.
Echo:Normal biventricular size and systolic function without regional wall motion
abnormality. Estimated LVEF 60-65%.
Mild/moderate mitral regurgitation.
Mild aortic stenosis.
Mild/moderate aortic regurgitation.
Interatrial septum is intact with no evidence of shunting by color flow
Doppler.
DANIELLA:06/04/25- Compared to transthoracic echocardiogram dated 06/04/2025, mitral and aortic
regurgitation appears improved
�
Past Medical History:�Polymyalgia Rheumatica, Giant Cell Arteritis, Left thalamus CVA,
Procedure History:�Appendectomy, left shoulder reconstruction, right ankle fracture repair
Family History:�Per patient, does not know family history. Did not deal much with them.
�
Social History:�
Functional Level Premorbidly:�Independent with all activities, caregiver for his with stroke when he is not at work. Patient has care during the day
Functional Level Currently:�Transfer�supervision, ambulate with supervision 50 feet +120 feet with increased fatigue, repeat ambulation 100 feet with SPC�supervision, ADLs�supervision,
�
Tobacco:�Former smoker
Alcohol:�Denies�
Drug use:�Denies�
�
Lives with:�Spouse
24-hour assistance available:�
Number of floors:�Multilevel
# steps to enter:�None-ramp to enter
# steps to second floor: FF-stair glide to second floor
Potential First floor set up:�no
Driving:�Yes
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
�
�
Allergies:�
Allergy/AdvReac Type Severity Reaction Status Date / Time
No Known Allergies Allergy Verified 06/01/25 10:41
�
Review of Systems:�
Constitutional: (x) Normal _
Eye: (x) Normal _
Ear/Nose/Throat: (x) Normal _
Respiratory: (x) Normal _
Cardiovascular: (x) Normal _
Gastrointestinal: (x) Normal _
Genitourinary: (x) Normal _
Musculoskeletal: (x) abNormal _ LLE weakness
Integumentary: (x) Normal _
Neurologic: (x) cva Normal _
Psychiatric: (x) Normal _
Endocrine: (x) Normal _
Hematologic/Lymphatic: (x) Normal _
Allergic/Immunologic: (x) Normal _
�
Medications:�
Active Current Visit Medication List
Category Date Time Status
Acetaminophen [Tylenol] Med 06/01/25 18:30 Active
650 mg PO Q4HPRN PRN
Amlodipine [Norvasc] Med 06/03/25 12:00 Active
2.5 mg PO DAILY
Aspirin Chewable [Low Strength Aspirin] Med 06/02/25 08:00 Active
81 mg PO DAILY
Atorvastatin [Lipitor] Med 06/02/25 18:00 Active
40 mg PO QPM
Azithromycin [Zithromax] Med 06/02/25 08:00 Active
500 mg PO DAILY
Bisacodyl [Dulcolax] Med 06/01/25 18:30 Active
10 mg RECTAL [id number] PRN
Calcium Carbonate/Vitamin D3 [Oscal 500 + D] Med 06/02/25 08:00 Active
1,000 mg PO DAILY
CefTRIAXone [Rocephin] Med 06/02/25 08:00 Active
1,000 mg IV Q24H
Clopidogrel Bisulfate [Plavix] Med 06/02/25 13:25 Active
75 mg PO DAILY
Cyanocobalamin Med 06/02/25 08:00 Active
1,000 mcg IM DAILY
Docusate W/Senna [Senokot-S] Med 06/01/25 18:30 Active
1 tablet PO BIDPRN PRN
Famotidine [Pepcid] Med 06/02/25 08:00 Active
20 mg PO DAILY
Flush (0.9% Sodium Chloride) [Flush (Nss)] Med 06/02/25 14:00 Active
See Dose Instructions IV PER PROTOCOL
Heparin Med 06/02/25 16:00 Active
5,000 units SC Q8
HydrALAZINE [Apresoline] Med 06/03/25 11:11 Active
5 mg IV Q6HPRN PRN
Polyethylene Glycol Powder [Miralax] Med 06/01/25 18:30 Active
17 grams PO DAILYPRN PRN
Prednisone [Deltasone] Med 06/02/25 08:00 Active
60 mg PO DAILY
Sterile Water [Sterile Water For Injection] Med 06/02/25 08:00 Active
10 ml IV Q24H
�
Vitals:�
Temp Pulse Resp BP Pulse Ox
97.8 F 86 16 119/77 98
06/04/25 15:45 06/04/25 15:45 06/04/25 15:45 06/04/25 15:45 06/04/25 15:45
Height 6 ft 1 in
Actual Weight 64.552 kg
Body Mass Index (BMI) 18.8
�
Physical Exam:�
General Appearance/Observation: Well-developed, well-nourished individual in no apparent distress.�
Pain/Comfort Assessment: Denies�
Mood/Affect: Appropriate�
�
Integumentary/Operative Site:�
�� Pressure Ulcer Evaluation: absent over heels.�
�
�� Other Type of Wound: absent�
��
�
Eyes: Conjunctiva/Lids: normal���� Pupils: pupils equal round and reactive to light and Accommodation�
Ears/Nose/Throat: oral mucosa moist,� throat clear.������������ Lips/Teeth/Gums: normal�
Neck: No muscle spasm or tenderness�
Cardiovascular: Heart: regular, no murmur�
Pulses: dorsalis pedis 2+ bilaterally�
Respiratory: Respiratory Effort/Chest Expansion: normal������� Auscultation: Clear to auscultation bilaterally�
Gastrointestinal: abdomen not tender, no distension, normal abdominal bowel sounds
Genitourinary: No Cuevas�
Extremities:�Edema: None�Cyanosis: None�Trophic�changes: None
�
Neurology Exam:
Orientation: Alert, Oriented to self, Time, Place�
Memory: Intact for immediately medical concerns
Repetition: Intact
Comprehension: Intact
Two step command: Intact
Naming: Intact
Cranial Nerves:
�� CNII:�Pupillary light reflex: Intact����Visual Field: Intact
�� CN III, IV, : Extraocular muscles: Intact�
�� CN V:�Facial Sensation�at�Forehead: Intact,�Maxilla: Intact,�Mandible: Intact
�� CN VII:�Facial movement: Symmetric
�� CN VIII:�Hearing: Normal
�� CN IX/X:�Speech & swallow: Normal,�Position of Uvula: Midline
�� CN XI:�Shoulder shrug: Symmetric
�� CN XII:�Tongue protrusion: Midline
Sensory:
�� Light touch: Intact in bilateral upper and lower extremities
��
Reflexes:
�� Biceps: 2+ bilaterally
�� Brachioradialis: 2+ bilaterally
�� Triceps: 2+ bilaterally
�� Patellar: 2+right, left-absent
�� Achilles:absent bilaterally
�� Babinski: Down going bilaterally
�� Clonus: None
�� Rosalba: Negative bilaterally�
Cerebellar: Dysmetria/Ataxia: None�
Musculoskeletal:
Motor: (Manual muscle scale 0-5)�
Muscle SA EF WE EE FF FA HF KE DF EHL PF
Right� 5 5 5 5 5 4 5 5 5 5 5
Left 4 5 5 5 5 4 5 4 5 5 5
�
Tone: Normal in all extremities�
Range of Motion: Passively within normal limits in all extremities, except limited rom of left shoulder�
�
Lab Results
Labs
WBC 11.6 10^3/uL (4.8-10.8) H 06/04/25 05:10
RBC 4.50 10^6/uL (4.70-6.10) L 06/04/25 05:10
Hgb 12.7 g/dL (13.0-18.0) L 06/04/25 05:10
Hct 39.1 % (39.0-52.0) 06/04/25 05:10
MCV 86.9 fL (80.0-94.0) 06/04/25 05:10
MCH 28.2 pg (27.0-31.0) 06/04/25 05:10
MCHC 32.5 g/dL (33.0-37.0) L 06/04/25 05:10
RDW 13.5 % (11.5-14.5) 06/04/25 05:10
Plt Count 425 10^3/uL (130-400) H 06/04/25 05:10
MPV 9.1 fL (7.4-10.4) 06/04/25 05:10
Abs Immat Gran (auto) 0.3 10^3/uL (0-0.05) H 06/04/25 05:10
Absolute Neuts (auto) 8.4 10^3/uL (1.4-6.5) H 06/04/25 05:10
Absolute Lymphs (auto) 1.8 10^3/uL (1.2-3.4) 06/04/25 05:10
Absolute Monos (auto) 1.0 10^3/uL (0.1-0.6) H 06/04/25 05:10
Absolute Eos (auto) 0.1 10^3/uL (0-0.7) 06/04/25 05:10
Absolute Basos (auto) 0.1 10^3/uL (0-0.2) 06/04/25 05:10
Immature Gran % 2.7 % (0-0.5) H 06/04/25 05:10
Neutrophils % 72.0 % (42.2-75.2) 06/04/25 05:10
Lymphocytes % 15.5 % (20.5-51.1) L 06/04/25 05:10
Monocytes % 8.9 % (1.7-9.3) 06/04/25 05:10
Eosinophils % 0.5 % (0-6) 06/04/25 05:10
Basophils % 0.4 % (0-2) 06/04/25 05:10
Nucleated RBC % 0 % (-) 06/04/25 05:10
Sodium 138 mmol/L (135-145) 06/04/25 05:10
Potassium 4.4 mmol/L (3.5-5.1) 06/04/25 05:10
Chloride 104 mmol/L (98-107) 06/04/25 05:10
Carbon Dioxide 30 mmol/L (22-30) 06/04/25 05:10
BUN 22 mg/dl (9-20) H 06/04/25 05:10
Creatinine 0.8 mg/dL (0.7-1.3) 06/04/25 05:10
Estimated Creat Clear 68 ml/min 06/04/25 05:10
eGFR > 60.00 06/04/25 05:10
Glucose 88 mg/dl (70-99) 06/04/25 05:10
Hemoglobin A1c 5.9 % (4.0-5.6) H 06/02/25 08:21
Lactic Acid 1.4 mmol/L (0.7-2.0) 06/01/25 15:39
Calcium 8.8 mg/dl (8.4-10.2) 06/04/25 05:10
Magnesium 2.1 mg/dl (1.6-2.3) 06/02/25 08:21
Ferritin 372.0 ng/ml (17.9-464.0) 06/01/25 10:36
Total Bilirubin 0.4 mg/dl (0.2-1.3) 06/04/25 05:10
AST 25 U/L (17-59) 06/04/25 05:10
ALT 30 U/L (0-50) 06/04/25 05:10
Alkaline Phosphatase 55 U/L (38-126) 06/04/25 05:10
Creatine Kinase 93 U/L (55-170) 06/01/25 10:36
Total Creatine Kinase 68 U/L (55-170) 06/01/25 15:39
Troponin I < 0.012 ng/ml 06/01/25 10:36
C-Reactive Protein 49.10 mg/L (0.0-10.00) H 06/01/25 10:36
Total Protein 6.2 g/dl (6.3-8.2) L 06/04/25 05:10
Albumin 3.2 g/dl (3.5-5.0) L 06/04/25 05:10
Triglycerides 92 mg/dl (10-149) 06/02/25 08:21
Total Cholesterol 153 mg/dl (50-199) 06/02/25 08:21
LDL Cholesterol, Calc 96 mg/dl 06/02/25 08:21
VLDL Cholesterol, Calc 18 mg/dl (0-30) 06/02/25 08:21
HDL Cholesterol 39 mg/dl 06/02/25 08:21
Vitamin B12 170 pg/ml (239-931) L 06/01/25 10:36
Vitamin D 25-Hydroxy 18.5 ng/mL (30-80) L 06/01/25 10:36
Folate 5.4 ng/ml (2.76-20) 06/01/25 10:36
TSH (Reflex) 0.80 uIU/ml (0.47-4.68) 06/01/25 10:36
Urine Color Ana M 06/01/25 23:23
Urine Clarity Clear (Clear) 06/01/25 23:23
Urine pH 6.0 (5.0-9.0) 06/01/25 23:23
Ur Specific [place] 1.025 (<1.030) 06/01/25 23:23
Urine Ketones Negative (Negative) 06/01/25 23:23
Ur Occult Blood Reflex Negative (Negative) 06/01/25 23:23
Urine Nitrite (Reflex) Negative (Negative) 06/01/25 23:23
Urine Bilirubin Negative (Negative) 06/01/25 23:23
Urine Urobilinogen Negative (Neg - 1+) 06/01/25 23:23
Leukocyte Esterase Rfl Negative (Negative) 06/01/25 23:23
Urine RBC None seen /HPF (0-2) 06/01/25 23:23
Urine WBC (Reflex) 3-5 /HPF (0-5) 06/01/25 23:23
Ur Squamous Epith Cells None seen /LPF (Few) 06/01/25 23:23
Urine Bacteria (Reflex) Many (Negative) A 06/01/25 23:23
Urine Mucus Moderate 06/01/25 15:34
Urine Glucose Negative (Negative) 06/01/25 23:23
Urine Albumin (Reflex) 1+ (Neg - Trace) A 06/01/25 23:23
�
Diagnostic Results:�as per HPI�
�
Assessment: 80-year-old male with past medical history of polymyalgia rheumatica, giant cell arteritis, CVA in the beginning of May with CTA showing possible infarction on May 04, and recent dizziness with leg weakness and urinary incontinence
found to have multiple areas of l infarction on mRI.
Plan�
PM&R�PT/OT to increase independence with ADLs, improve balance, coordination, endurance, strength, mobility, community reintegration, decreased burden of care on others and family education.�
�
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
diastolic less than 100 to participate with therapy for ischemic stroke). Continue to monitor neurologic status.�
HTN: continue medications, monitor closely�
HLD: Statin�
Suspect community-acquired pneumonia: ceftriaxone, azithromycin total 5 days. Chest x-ray consistent with pneumonia
Polymyalgia rheumatica/giant cell arthritis� Follows with rheumatology. Prednisone 60mg qd.
Anemia: Likely multifactorial.� Continue to monitor.�
Psych: Psychology consult.� Monitor mood, adjust medications as needed.�
Skin: monitor for pressure sores/rashes/lesions.�
Pain: acetaminophen as needed.�
Bowel: Colace and Senna, PRN bisacodyl.�
Bladder: Time void, PVRs, PRN straight cath.�
GI Prophylaxis: can benefit from Pantoprazole�
DVT Prophylaxis: mechanical and Heparin 5000 units q 8 hours
Pulmonary: Incentive spirometry
Safety: Continue to reinforce assistance with all transfers.�
Code Status:�DNR�
Dispo�(date/plan/equipment needs): Home with family care.� Social history reviewed.�
�
Active Current Visit Medication List
Category Date Time Status
Acetaminophen [Tylenol] Med 06/01/25 18:30 Active
650 mg PO Q4HPRN PRN
Amlodipine [Norvasc] Med 06/03/25 12:00 Active
2.5 mg PO DAILY
Aspirin Chewable [Low Strength Aspirin] Med 06/02/25 08:00 Active
81 mg PO DAILY
Atorvastatin [Lipitor] Med 06/02/25 18:00 Active
40 mg PO QPM
Azithromycin [Zithromax] Med 06/02/25 08:00 Active
500 mg PO DAILY
Bisacodyl [Dulcolax] Med 06/01/25 18:30 Active
10 mg RECTAL [id number] PRN
Calcium Carbonate/Vitamin D3 [Oscal 500 + D] Med 06/02/25 08:00 Active
1,000 mg PO DAILY
CefTRIAXone [Rocephin] Med 06/02/25 08:00 Active
1,000 mg IV Q24H
Clopidogrel Bisulfate [Plavix] Med 06/02/25 13:25 Active
75 mg PO DAILY
Cyanocobalamin Med 06/02/25 08:00 Active
1,000 mcg IM DAILY
Docusate W/Senna [Senokot-S] Med 06/01/25 18:30 Active
1 tablet PO BIDPRN PRN
Famotidine [Pepcid] Med 06/02/25 08:00 Active
20 mg PO DAILY
Flush (0.9% Sodium Chloride) [Flush (Nss)] Med 06/02/25 14:00 Active
See Dose Instructions IV PER PROTOCOL
Heparin Med 06/02/25 16:00 Active
5,000 units SC Q8
HydrALAZINE [Apresoline] Med 06/03/25 11:11 Active
5 mg IV Q6HPRN PRN
Polyethylene Glycol Powder [Miralax] Med 06/01/25 18:30 Active
17 grams PO DAILYPRN PRN
Prednisone [Deltasone] Med 06/02/25 08:00 Active
60 mg PO DAILY
Sterile Water [Sterile Water For Injection] Med 06/02/25 08:00 Active
10 ml IV Q24H
Functional and Medical Goals:�Modified Independent with ADL�s, ambulation, transfers�
��
Discharge Destination:�Patient with improvement of symptoms. Ambulated 170 feet then 100 feet with single point cane and ADLs at supervision. He would benefit from continued home care or outpatient therapy. 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
Thank you for allowing me to care for your patient. Please contact me with any questions or concerns.

Documented by User: Master Alexander MD 06/04/25 23:39
Consultation - Medical
-
Referring Provider:�Chante Parker
Chief Complaint:�Bilateral leg weakness, CVA
�
History of Present Illness:�Patient is an 80-year-old right-handed male who presented to the ED on 06/01/2025 with complaint of dizziness, cold sweats and worsening bilateral lower extremity weakness. Patient notably was in the ED on 05/04/2025 with a
stroke and was discharged on Aspirin, Plavix and Lipitor which he stopped 3 days after his discharge due to increasing bilateral legs weakness. CT scan of the head this admission showed no acute intracranial abnormalities, MRI reveals foci of
restricted diffusion within the bilateral thalami and posterior right basal ganglia consistent with acute infarcts. Neurology recommended continuing aspirin and Plavix for 21 days and then aspirin alone. Recommended DANIELLA as felt stroke to be embolic.
Echo:Normal biventricular size and systolic function without regional wall motion
abnormality. Estimated LVEF 60-65%.
Mild/moderate mitral regurgitation.
Mild aortic stenosis.
Mild/moderate aortic regurgitation.
Interatrial septum is intact with no evidence of shunting by color flow
Doppler.
DANIELLA:06/04/25- Compared to transthoracic echocardiogram dated 06/04/2025, mitral and aortic
regurgitation appears improved
�
Past Medical History:�Polymyalgia Rheumatica, Giant Cell Arteritis, Left thalamus CVA,
Procedure History:�Appendectomy, left shoulder reconstruction, right ankle fracture repair
Family History:�Per patient, does not know family history. Did not deal much with them.
�
Social History:�
Functional Level Premorbidly:�Independent with all activities, caregiver for his with stroke when he is not at work. Patient has care during the day
Functional Level Currently:�Transfer�supervision, ambulate with supervision 50 feet +120 feet with increased fatigue, repeat ambulation 100 feet with SPC�supervision, ADLs�supervision,
�
Tobacco:�Former smoker
Alcohol:�Denies�
Drug use:�Denies�
�
Lives with:�Spouse
24-hour assistance available:� is at home
Number of floors:�Multilevel
# steps to enter:�None-ramp to enter
# steps to second floor: FF-stair glide to second floor
Potential First floor set up:�no
Driving:�Yes
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
�
�
Allergies:�
Allergy/AdvReac Type Severity Reaction Status Date / Time
No Known Allergies Allergy Verified 06/01/25 10:41
�
Review of Systems:�
Constitutional: (x) Normal _
Eye: (x) Normal _
Ear/Nose/Throat: (x) Normal _
Respiratory: (x) Normal _
Cardiovascular: (x) Normal _
Gastrointestinal: (x) Normal _
Genitourinary: (x) Normal _
Musculoskeletal: (x) abNormal _ LLE weakness
Integumentary: (x) Normal _
Neurologic: (x) cva Normal _
Psychiatric: (x) Normal _
Endocrine: (x) Normal _
Hematologic/Lymphatic: (x) Normal _
Allergic/Immunologic: (x) Normal _
�
Medications:�
Active Current Visit Medication List
Category Date Time Status
Acetaminophen [Tylenol] Med 06/01/25 18:30 Active
650 mg PO Q4HPRN PRN
Amlodipine [Norvasc] Med 06/03/25 12:00 Active
2.5 mg PO DAILY
Aspirin Chewable [Low Strength Aspirin] Med 06/02/25 08:00 Active
81 mg PO DAILY
Atorvastatin [Lipitor] Med 06/02/25 18:00 Active
40 mg PO QPM
Azithromycin [Zithromax] Med 06/02/25 08:00 Active
500 mg PO DAILY
Bisacodyl [Dulcolax] Med 06/01/25 18:30 Active
10 mg RECTAL [id number] PRN
Calcium Carbonate/Vitamin D3 [Oscal 500 + D] Med 06/02/25 08:00 Active
1,000 mg PO DAILY
CefTRIAXone [Rocephin] Med 06/02/25 08:00 Active
1,000 mg IV Q24H
Clopidogrel Bisulfate [Plavix] Med 06/02/25 13:25 Active
75 mg PO DAILY
Cyanocobalamin Med 06/02/25 08:00 Active
1,000 mcg IM DAILY
Docusate W/Senna [Senokot-S] Med 06/01/25 18:30 Active
1 tablet PO BIDPRN PRN
Famotidine [Pepcid] Med 06/02/25 08:00 Active
20 mg PO DAILY
Flush (0.9% Sodium Chloride) [Flush (Nss)] Med 06/02/25 14:00 Active
See Dose Instructions IV PER PROTOCOL
Heparin Med 06/02/25 16:00 Active
5,000 units SC Q8
HydrALAZINE [Apresoline] Med 06/03/25 11:11 Active
5 mg IV Q6HPRN PRN
Polyethylene Glycol Powder [Miralax] Med 06/01/25 18:30 Active
17 grams PO DAILYPRN PRN
Prednisone [Deltasone] Med 06/02/25 08:00 Active
60 mg PO DAILY
Sterile Water [Sterile Water For Injection] Med 06/02/25 08:00 Active
10 ml IV Q24H
�
Vitals:�
Temp Pulse Resp BP Pulse Ox
97.8 F 86 16 119/77 98
06/04/25 15:45 06/04/25 15:45 06/04/25 15:45 06/04/25 15:45 06/04/25 15:45
Height 6 ft 1 in
Actual Weight 64.552 kg
Body Mass Index (BMI) 18.8
�
Physical Exam:�
General Appearance/Observation: Well-developed, well-nourished male in no apparent distress.�
Pain/Comfort Assessment: Denies�
Mood/Affect: Appropriate�
�
Integumentary/Operative Site:�
�� Pressure Ulcer Evaluation: absent over heels.��
�
Eyes: Conjunctiva/Lids: normal���� Pupils: pupils equal round and reactive to light and Accommodation�
Ears/Nose/Throat: oral mucosa moist,� throat clear.������������ Lips/Teeth/Gums: normal�
Neck: No muscle spasm or tenderness�
Cardiovascular: Heart: regular, no murmur�
Pulses: dorsalis pedis 2+ bilaterally�
Respiratory: Respiratory Effort/Chest Expansion: normal������� Auscultation: Clear to auscultation bilaterally�
Gastrointestinal: abdomen not tender, no distension, normal abdominal bowel sounds
Genitourinary: No Cuevas�
Extremities:�Edema: None�Cyanosis: None�Trophic�changes: None
�
Neurology Exam:
Orientation: Alert, Oriented to self, Time, Place�
Memory: Intact for immediately medical concerns
Repetition: Intact
Comprehension: Intact
Two step command: Intact
Naming: Intact
Cranial Nerves:
�� CNII:�Pupillary light reflex: Intact����Visual Field: Intact
�� CN III, IV, : Extraocular muscles: Intact�
�� CN V:�Facial Sensation�at�Forehead: Intact,�Maxilla: Intact,�Mandible: Intact
�� CN VII:�Facial movement: Symmetric
�� CN VIII:�Hearing: Normal
�� CN IX/X:�Speech & swallow: Normal,�Position of Uvula: Midline
�� CN XI:�Shoulder shrug: Symmetric
�� CN XII:�Tongue protrusion: Midline
Sensory:
�� Light touch: Intact in bilateral upper and lower extremities
��
Reflexes:
�� Biceps: 2+ bilaterally
�� Brachioradialis: 2+ bilaterally
�� Triceps: 2+ bilaterally
�� Patellar: 2+right, left-absent
�� Achilles:absent bilaterally
�� Babinski: Down going bilaterally
�� Clonus: None
�� Rosalba: Negative bilaterally�
Cerebellar: Dysmetria/Ataxia: None�
Musculoskeletal: Motor: (Manual muscle scale 0-5)�
Muscle SA EF WE EE FF FA HF KE DF EHL PF
Right� 5 5 5 5 5 4 4 5 5 5 5
Left 5 5 5 5 5 4 4 5 5 5 5
�
Tone: Normal in all extremities�
Range of Motion: Passively within normal limits in all extremities, except limited rom of left shoulder�
�
Lab Results
Labs
WBC 11.6 10^3/uL (4.8-10.8) H 06/04/25 05:10
RBC 4.50 10^6/uL (4.70-6.10) L 06/04/25 05:10
Hgb 12.7 g/dL (13.0-18.0) L 06/04/25 05:10
Hct 39.1 % (39.0-52.0) 06/04/25 05:10
MCV 86.9 fL (80.0-94.0) 06/04/25 05:10
MCH 28.2 pg (27.0-31.0) 06/04/25 05:10
MCHC 32.5 g/dL (33.0-37.0) L 06/04/25 05:10
RDW 13.5 % (11.5-14.5) 06/04/25 05:10
Plt Count 425 10^3/uL (130-400) H 06/04/25 05:10
MPV 9.1 fL (7.4-10.4) 06/04/25 05:10
Abs Immat Gran (auto) 0.3 10^3/uL (0-0.05) H 06/04/25 05:10
Absolute Neuts (auto) 8.4 10^3/uL (1.4-6.5) H 06/04/25 05:10
Absolute Lymphs (auto) 1.8 10^3/uL (1.2-3.4) 06/04/25 05:10
Absolute Monos (auto) 1.0 10^3/uL (0.1-0.6) H 06/04/25 05:10
Absolute Eos (auto) 0.1 10^3/uL (0-0.7) 06/04/25 05:10
Absolute Basos (auto) 0.1 10^3/uL (0-0.2) 06/04/25 05:10
Immature Gran % 2.7 % (0-0.5) H 06/04/25 05:10
Neutrophils % 72.0 % (42.2-75.2) 06/04/25 05:10
Lymphocytes % 15.5 % (20.5-51.1) L 06/04/25 05:10
Monocytes % 8.9 % (1.7-9.3) 06/04/25 05:10
Eosinophils % 0.5 % (0-6) 06/04/25 05:10
Basophils % 0.4 % (0-2) 06/04/25 05:10
Nucleated RBC % 0 % (-) 06/04/25 05:10
Sodium 138 mmol/L (135-145) 06/04/25 05:10
Potassium 4.4 mmol/L (3.5-5.1) 06/04/25 05:10
Chloride 104 mmol/L (98-107) 06/04/25 05:10
Carbon Dioxide 30 mmol/L (22-30) 06/04/25 05:10
BUN 22 mg/dl (9-20) H 06/04/25 05:10
Creatinine 0.8 mg/dL (0.7-1.3) 06/04/25 05:10
Estimated Creat Clear 68 ml/min 06/04/25 05:10
eGFR > 60.00 06/04/25 05:10
Glucose 88 mg/dl (70-99) 06/04/25 05:10
Hemoglobin A1c 5.9 % (4.0-5.6) H 06/02/25 08:21
Lactic Acid 1.4 mmol/L (0.7-2.0) 06/01/25 15:39
Calcium 8.8 mg/dl (8.4-10.2) 06/04/25 05:10
Magnesium 2.1 mg/dl (1.6-2.3) 06/02/25 08:21
Ferritin 372.0 ng/ml (17.9-464.0) 06/01/25 10:36
Total Bilirubin 0.4 mg/dl (0.2-1.3) 06/04/25 05:10
AST 25 U/L (17-59) 06/04/25 05:10
ALT 30 U/L (0-50) 06/04/25 05:10
Alkaline Phosphatase 55 U/L (38-126) 06/04/25 05:10
Creatine Kinase 93 U/L (55-170) 06/01/25 10:36
Total Creatine Kinase 68 U/L (55-170) 06/01/25 15:39
Troponin I < 0.012 ng/ml 06/01/25 10:36
C-Reactive Protein 49.10 mg/L (0.0-10.00) H 06/01/25 10:36
Total Protein 6.2 g/dl (6.3-8.2) L 06/04/25 05:10
Albumin 3.2 g/dl (3.5-5.0) L 06/04/25 05:10
Triglycerides 92 mg/dl (10-149) 06/02/25 08:21
Total Cholesterol 153 mg/dl (50-199) 06/02/25 08:21
LDL Cholesterol, Calc 96 mg/dl 06/02/25 08:21
VLDL Cholesterol, Calc 18 mg/dl (0-30) 06/02/25 08:21
HDL Cholesterol 39 mg/dl 06/02/25 08:21
Vitamin B12 170 pg/ml (239-931) L 06/01/25 10:36
Vitamin D 25-Hydroxy 18.5 ng/mL (30-80) L 06/01/25 10:36
Folate 5.4 ng/ml (2.76-20) 06/01/25 10:36
TSH (Reflex) 0.80 uIU/ml (0.47-4.68) 06/01/25 10:36
Urine Color Ana M 06/01/25 23:23
Urine Clarity Clear (Clear) 06/01/25 23:23
Urine pH 6.0 (5.0-9.0) 06/01/25 23:23
Ur Specific [place] 1.025 (<1.030) 06/01/25 23:23
Urine Ketones Negative (Negative) 06/01/25 23:23
Ur Occult Blood Reflex Negative (Negative) 06/01/25 23:23
Urine Nitrite (Reflex) Negative (Negative) 06/01/25 23:23
Urine Bilirubin Negative (Negative) 06/01/25 23:23
Urine Urobilinogen Negative (Neg - 1+) 06/01/25 23:23
Leukocyte Esterase Rfl Negative (Negative) 06/01/25 23:23
Urine RBC None seen /HPF (0-2) 06/01/25 23:23
Urine WBC (Reflex) 3-5 /HPF (0-5) 06/01/25 23:23
Ur Squamous Epith Cells None seen /LPF (Few) 06/01/25 23:23
Urine Bacteria (Reflex) Many (Negative) A 06/01/25 23:23
Urine Mucus Moderate 06/01/25 15:34
Urine Glucose Negative (Negative) 06/01/25 23:23
Urine Albumin (Reflex) 1+ (Neg - Trace) A 06/01/25 23:23
�
Diagnostic Results:�as per HPI�
�
Assessment:
80-year-old R�handed M PMH (polymyalgia rheumatica, giant cell arteritis, CV in the beginning of May) with CTA showing possible infarction on May 04, and recent dizziness with leg weakness and urinary incontinence found to have multiple areas of l
infarction on mRI.
Plan�
PM&R�PT/OT to increase independence with ADLs, improve balance, coordination, endurance, strength, mobility, community reintegration, decreased burden of care on others and family education.�
�
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
diastolic less than 100 to participate with therapy for ischemic stroke). Continue to monitor neurologic status.�
HTN: continue medications, monitor closely�
HLD: Statin�
Suspect community-acquired pneumonia: ceftriaxone, azithromycin total 5 days. Chest x-ray consistent with pneumonia
Polymyalgia rheumatica/giant cell arthritis� Follows with rheumatology. Prednisone 60mg qd.
Anemia: Likely multifactorial.� Continue to monitor.�
Psych: Psychology consult.� Monitor mood, adjust medications as needed.�
Skin: monitor for pressure sores/rashes/lesions.�
Pain: acetaminophen as needed.�
Bowel: Colace and Senna, PRN bisacodyl.�
Bladder: Time void, PVRs, PRN straight cath.�
GI Prophylaxis: can benefit from Pantoprazole�
DVT Prophylaxis: mechanical and Heparin 5000 units q 8 hours
Pulmonary: Incentive spirometry
Safety: Continue to reinforce assistance with all transfers.�
Code Status:�DNR�per chart
Dispo�(date/plan/equipment needs): Home with family care.� Social history reviewed.�
Functional and Medical Goals:�Modified Independent with ADL�s, ambulation, transfers�
Discharge Destination:�Patient with improvement of symptoms. Ambulated 170 feet then 100 feet with single point cane and ADLs at supervision. He would benefit from continued home care or outpatient therapy. 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 Had extensive discussion with him about energy conservation and management. He will need to pace himself with activities before getting to more exercise program.A total of 60 minutes were spent with the patient
preparing for the evaluation, obtaining history, performing examination and evaluation, counseling, data review, case management, care coordination, order clerk, and EMR documentation.
Thank you for allowing me to care for your patient. Please contact me with any questions or concerns.
Consultation
-
Date/Time Consultation Performed:
Requesting Provider: Dr. Chante Morales
Performing Provider: Dr. Master Alexander
Reason for Consultation: Rehabilitation needs
[2025-06-04] MEDS: LIPITOR 40 MG PO (17:39)
[2025-06-04 19:00] VITALS: BP 125/72
[2025-06-04 23:00] VITALS: BP 142/79
[2025-06-05] MEDS: HEPARIN 5000 UNITS SC ×2 (00:38→08:06)
[2025-06-05 02:26] LABS: ANA, IgG Reflex to HEp-2 None Detected (None Detected)
[2025-06-05 03:00] VITALS: BP 119/73
[2025-06-05 05:36] LABS: Hematocrit 36.1 % (39.0-52.0); Hemoglobin 12.1 g/dL (13.0-18.0); Mean Corp Hgb Conc. 33.5 g/dL (33.0-37.0); Mean Corpuscular Volume 84.5 fL (80.0-94.0); Platelet Count 364 10^3/uL (130-400); Red Cell Dist. Width 13.6 % (11.5-14.5)
[2025-06-05 06:00] VITALS: BMI 18.8
[2025-06-05 07:00] VITALS: BP 144/82
[2025-06-05 07:11] LABS: Blood Urea Nitrogen 22 mg/dl (9-20); Calcium 8.6 mg/dl (8.4-10.2); Carbon Dioxide 30 mmol/L (22-30); Chloride 105 mmol/L (98-107); Estimated Creatinine Clearance 67 ml/min; Glucose 79 mg/dl (70-99); Magnesium 2.1 mg/dl (1.6-2.3); Potassium 4.0 mmol/L (3.5-5.1); Sodium 137 mmol/L (135-145); eGFR > 60.00
[2025-06-05] MEDS: ROCEPHIN 1000 MG IV (08:03)
[2025-06-05] MEDS: STERILE WATER FOR INJECTION 10 ML IV (08:04)
[2025-06-05] MEDS: PLAVIX 75 MG PO (08:05)
[2025-06-05] MEDS: DELTASONE 60 MG PO (08:05)
[2025-06-05] MEDS: ZITHROMAX 500 MG PO (08:05)
[2025-06-05] MEDS: PEPCID 20 MG PO (08:05)
[2025-06-05] MEDS: OSCAL 500 + D 1000 MG PO (08:05)
[2025-06-05] MEDS: CYANOCOBALAMIN 1000 MCG IM (08:06)
[2025-06-05] MEDS: LOW STRENGTH ASPIRIN 81 MG PO (08:06)
[2025-06-05] MEDS: NORVASC 2.5 MG PO ×2 (08:07→11:31)
--- NOTE | 2025-06-05 10:14 | W.PN.HOSP.TC ---
Addendum entered and electronically signed by Chante Morales MD 06/05/25 14:37:
# Moderate protein calorie malnutrition of chronic illness
# Possible Aspiration Pneumonia versus community-acquired pneumonia
Addendum entered and electronically signed by Chante Morales MD 06/05/25 14:36:
total DC time 39 min
Original Note:
Today's Communication/Plan
-
see A/P
Assessment / Plan
Assessment / Plan
HPI: 80-year-old M with past medical history of PMR 2019, giant cell arteritis 2019, p/w bilateral leg weakness with cramping that started 05/07/2025 3 days after being diagnosed with a stroke. He stopped taking aspirin, Plavix, Lipitor 3 days
poststroke as he thought these meds were making his legs weak.
He was seen on 05/29/2025 by rheumatology was recommended for prednisone to increase to 60 mg.
A/P:
# Generalized lower extremity weakness due to acute stroke
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
CK normal, low vitamin B12
MRI lumbar/thoracic spine noted with T7-T8 small left paracentral disc protrusion which appeared to slightly compress the left anterior margin of thoracic spinal cord. Normal morphology and signal intensity.
MRI brain with bilateral thalami and posterior right basal ganglia infarction.
Continue with aspirin and Plavix for 21 days total and then aspirin alone
Neurology following, felt stroke embolic, echo and DANIELLA negative for atrial thrombus
Now dispo plan is with clinical improvement
Of note, A1c 5.9
LDL 96, started Lipitor 40 mg
# Vitamin B12 deficiency
Replete
# Intermittent periods of high blood pressure
Given acute CVA, patient was started with amlodipine, increase 2.5 mg to 5 mg
# Prediabetes
A1c 5.9
Monitor
# Suspect community-acquired pneumonia
Chest x-ray consistent with pneumonia
c/w ceftriaxone/azithromycin, DC with cefdinir and azithromycin for 1 more day (total 5 days)
Speech evaluation given recent CVA, okay for regular diet,
bedside FEES noted silent aspiration of thin liquid through puree,
discussed finding with pt and daughter, both in favor of accepting risk of aspiration to cont current diet
# Polymyalgia rheumatica Dx 2019
# Giant cell arteritis 2019 via temporal artery biopsy states did 1 course of prednisone
Patient follows with rheumatology Dr. Wong [phone] extension [phone]
Recently prednisone increased to 60 mg daily. Per patient rheumatology structured him to continue 60 mg daily for 1 week and then taper by 10 every week
# Anemia, normocytic
Monitor
# COPD possible interstitial fibrosis�new diagnosis for patient
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
DVT prophylaxis: SCDs, hep
DNR per patient with daughter present at bedside
Dispo: Bee per PT recc
DW SPL
DW RN
updated daughter on the phone
Anticipated Discharge: Today
Subjective/Interval History
-
Date of Service: June 05, 2025
Objective Data
-
Labs:
Laboratory Results
06/05/25
05:25
WBC 11.3 H
Hgb 12.1 L
Hct 36.1 L
Plt Count 364
Sodium 137
Potassium 4.0
Chloride 105
Carbon Dioxide 30
BUN 22 H
Creatinine 0.8
Glucose 79
Calcium 8.6
Vital Signs:
Vital Signs
Temp Pulse Resp BP Pulse Ox
36.6 C 71 18 144/82 97
06/05/25 07:00 06/05/25 08:07 06/05/25 07:00 06/05/25 08:07 06/05/25 07:00
I&O
06/04/25 06/05/25 06/06/25
06:59 06:59 06:59
Intake Total 1560 / 1560 700 / 700 960 / 960
Output Total 925 / 925 350 / 350
Balance 635 / 635 350 / 350 960 / 960
Review of Systems
-
History Source: Patient
All other systems: Reviewed and negative
Physical Exam
-
General: Well Developed, Well Nourished, No Apparent Distress, Comfortable and Conversant; Negative Respiratory Distress
HEENT: Normocephalic, Atraumatic, Nose Appears Normal and Ears Appear Normal; Negative Oxygen
Respiratory: Clear to Auscultation and Non Labored Respirations; Negative Accessory Resp Muscle Use
Cardiac: Regular Rhythm and S1/S2
GI: Soft, Nontender, Nondistended and Normal Bowel Sounds
Skin: Warm and Dry
Neuro: Awake, Alert, Oriented and AO x 3
Psych: Calm and Intact Judgement/Insight
Data Reviewed
-
MRI: Report Reviewed by me
Labs: Labs Reviewed by me
--- NOTE | 2025-06-05 10:53 | CM ---
MD indicated discharge today.
PT OT evaluated pt yesterday.
spoke with pt and dgt Emmanuelle [phone] both agreed to home with [facility]. Referral placed [facility]/ [facility] accepted referral.
Dgt will drive him home.
IMM reviewed yesterday signed on chart.
PLAN Home with [facility] fax [phone]
[2025-06-05 11:00] VITALS: BP 135/81
[2025-06-05 11:37] VITALS: BP 142/80
--- NOTE | 2025-06-05 13:25 | PN.CDI ---
CDI
- -
CDI:
Physician Documentation Request
Admit Date: 06/01/25 15:14
Dear Doctor Andrew,
Please review the following and provide your response in the progress notes.
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
#CBW: 143 lbs 2 oz BMI 18.9 normal range (06/03).
#...Compared to UBW with pt a 16% weight loss.
#...RD able to visulize temporal wasting, calf muscle wasting, orbital area sunken in,
#...protrusion of clavical, apparent ribs.
#With < 75% estimated needs > 1 month and observed muscle and fat wasting
#...pt meets AND/ASPEN criteria for moderate protein calorie malnutrition of chronic illness.
Based on the above information and your assessment, which of the following most accurately represents the patient's nutritional status?
Moderate protein calorie malnutrition o chronic illness
Other (please specify)
Erin Criteria (ACP Hospitalist 2017)
2 or more criteria must be present for either
non severe or severe malnutrition
Note that the criteria differs related to the
presence of an acute or chronic illness
Chronic Illness
Energy Intake Non Severe: <75% for >1 month
Severe: <75% for >1 month
Weight Loss Non Severe: 5% over 1 month
7.5% over 3 months
10% over 6 months
20% over 1 year
Severe: >5% over 1 month
>7.5% over 3 months
>10% over 6 months
>20% over 1 year
Body Fat Non Severe: Mild Loss
Severe: Severe Loss
Muscle Mass Non Severe: Mild Loss
Severe: Severe Loss
Use of terms such as suspected, likely, concern for, or probable (associated with a specific diagnosis that is being evaluated, monitored, or treated as if it exists) are acceptable and can be coded in the inpatient setting, when documented at the
time of discharge.
Thank you,
Irais Cornell RN BSN CCDS
CDI Specialist
Please contact via tiger text
Please use your independent medical judgment in providing your response.
--- NOTE | 2025-06-05 13:29 | PN.CDI ---
CDI
- -
CDI:
Physician Documentation Request
Admit Date: 06/01/25 15:14
Dear Doctor Andrew,
Please review the following and provide your response in the progress notes.
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
PN, 06/05
# Suspect community-acquired pneumonia
#...Chest x-ray consistent with pneumonia
#c/w ceftriaxone/azithromycin, DC with cefdinir and azithromycin
#...for 1 more day (total 5 days)
#Speech evaluation given recent CVA, okay for regular diet,
#...bedside FEES noted silent aspiration of thin liquid through puree,
#...discussed finding with pt and daughter,
#...both in favor of accepting risk of aspiration to cont current diet
Based on the above and your clinical assessment, please clarify the specificity regarding the known, suspected or likely type of pneumonia?
Aspiration Pneumonia - indicate substance such as food or vomitus, oils or other solids or liquids
Community Acquired Pneumonia only
Other (please specify)
Use of terms such as suspected, likely, concern for, or probable (associated with a specific diagnosis that is being evaluated, monitored, or treated as if it exists) are acceptable and can be coded in the inpatient setting, when documented at the
time of discharge.
Thank you,
Irais Cornell RN BSN CCDS
CDI Specialist
Please contact via tiger text
Please use your independent medical judgment in providing your response.
--- NOTE | 2025-06-05 13:39 | W.DCSUMMARY ---
Discharge Summary
Discharge Data
Date of Admission: 06/01/25
Date of Discharge: 06/05/25
-
Pending Results: No
Hospital Course
Principal Diagnosis:
Generalized lower extremity weakness due to acute stroke (MRI brain showed bilateral thalami and posterior right basal ganglia infarction).
Vitamin B12 deficiency
Hypertension
Prediabetes
Suspect community-acquired pneumonia versus aspiration pneumonia (with silent aspiration)
Chronic Diagnoses:�
Stroke left thalamus 05/04/2025
Polymyalgia rheumatica diagnosed in 2019
Giant cell arteritis diagnosed 2019 via temporal artery biopsy
COPD, possible interstitial fibrosis
Former smoker
Consultations:�
Neurology
Physiatry
Procedures:�
DANIELLA, negative for intracardiac thrombus
Clinical course:�
This is a 80-year-old male with past medical history as stated above, who presented with bilateral leg weakness and cramping.
Apparently he was diagnosed with stroke on 05/07/2025, but he decided to stop taking aspirin and Plavix 3 days after diagnosis as he felt these medications were making his legs weak.
He was also seen by rheumatology on 05/29/2025 and was recommended to take prednisone 60 mg, and taper 10 mg down each week.
Problem 1:
Generalized lower extremity weakness due to acute stroke.
His MRI brain showed bilateral thalami and posterior right basal ganglia infarction.
He has been informed to take aspirin and Plavix for 21 days total, then aspirin alone after that.
He had 2D echo followed by DANIELLA, and both ultrasounds were negative for any intracardiac thrombus.
His LDL was at 96, and he was started with Lipitor 40 mg.
His A1c was at 5.9%.
He was discharged home with home health per PT OT recommendation.
Problem 2:
Vitamin B12 deficiency.
He can continue with vitamin B12 supplement going forward.
Problem 3:
Intermittent periods of high blood pressure.
He was started with amlodipine and was discharged at 5 mg daily.
Problem 4:
Suspect community-acquired pneumonia.
His chest x-ray showed bilateral pneumonia.
He was treated with ceftriaxone/azithromycin while in the hospital, and was discharged with cefdinir and azithromycin for 1 more day (total 5 days).
His bedside FEES noted silent aspiration of thin liquid through puree.
This finding was discussed with the patient and his daughter, and they are both in favor of accepting the risk of aspiration to continue current diet.
As for the rest of his medical problems, they were stable during her hospital stay.
Discharge Plan
-
Patient Disposition: Home with Home Care
Discharge Diagnosis/Procedures: Generalized lower extremity weakness due to acute stroke (MRI brain showed bilateral thalami and posterior right basal ganglia infarction);
History of left thalamus stroke 05/04/2025;
Vitamin B12 deficiency;
Hypertension;
Prediabetes (HgA1c at 5.9%);
Suspect community-acquired pneumonia
Condition: Fair
Diet: As tolerated, Low Fat, Low Cholesterol and Low Sodium
Additional Diets: eat and chew slowly, eat upright, chop meal thinly
Activity: As tolerated
Driving Restrictions: Not until seen by your Dr
Activity Restrictions/Additional Instructions:
Follow up with your PCP for blood pressure control
Referrals:
Christel Hoffman, DO [Family Provider, Family Practice] - in less than 1 week
Additional Discharge Medication Instructions: Continue aspirin and plavix for 17 more days, the aspirin after that.
You were started with Norvasc for blood pressure control.
Continue antibiotics Cefdinir and azithromycin for 1 more day.
Continue Lipitor
Continue prednisone as previously recommended by your costume mistress
Continue vitamin B12 supplement for low level (at 170)
Prescriptions:
New
atorvastatin 40 mg Tablet
40 mg PO QPM Qty: 30 0RF
aspirin 81 mg Tablet,Chewable
81 mg PO DAILY Qty: 30 0RF
amlodipine 5 mg Tablet
5 mg PO DAILY Qty: 30 0RF
clopidogrel 75 mg Tablet
75 mg PO DAILY 17 Days Qty: 17 0RF
azithromycin 250 mg Tablet
500 mg PO DAILY 1 Days Qty: 2 0RF
cefdinir 300 mg capsule
300 mg PO BID 1 Days Qty: 2 0RF
mecobalamin (vitamin B12) 1,000 mcg tablet,chewable
1,000 mcg PO DAILY Qty: 30 0RF
Continued
prednisone
15 mg PO DAILY
Rx Instructions:
Started 05/28/2025 stopped 05/31/2025
Discharge Orders:
Discharge Patient (As Directed); Ordered 06/05/25
Ordered By: Chante Morales
Discharge Date and Time
Discharge Date/Time: 06/05/25 13:21
Print Language: PASHTO
== END 2025-06-05 13:21 | disposition home health service (06) | DRG 64 ==
LOC: 3 WEST ACU 15:14
PROVIDERS: Clinical Nurse Specialist Family Health; Internal Medicine Cardiovascular Disease; Registered Nurse; ADMITTING PHYSICIAN Internal Medicine; ATTENDING PHYSICIAN Internal Medicine; CONSULT PHYSICIAN Internal Medicine Cardiovascular Disease; CONSULT PHYSICIAN Physical Medicine & Rehabilitation; CONSULT PHYSICIAN Psychiatry & Neurology Neurology; EMERGENCY PHYSICIAN Emergency Medicine; FAMILY PHYSICIAN Family Medicine
PROC: B24BZZ4 Ultrasonography of Heart with Aorta, Transesophageal (ICD-10-PCS; 2025-06-04)
DX: I63.89 Other cerebral infarction (principal); J18.9 Pneumonia, unspecified organism; J69.0 Pneumonitis due to inhalation of food and vomit; J44.0 Chronic obstructive pulmonary disease with (acute) lower respiratory infection; E44.0 Moderate protein-calorie malnutrition; Z68.1 Body mass index [BMI] 19.9 or less, adult; Z66 Do not resuscitate; I10 Essential (primary) hypertension; E53.8 Deficiency of other specified B group vitamins; R73.03 Prediabetes; M31.5 Giant cell arteritis with polymyalgia rheumatica; J84.10 Pulmonary fibrosis, unspecified; G83.14 Monoplegia of lower limb affecting left nondominant side; G83.11 Monoplegia of lower limb affecting right dominant side; R32 Unspecified urinary incontinence; D64.9 Anemia, unspecified; R29.700 NIHSS score 0; D72.829 Elevated white blood cell count, unspecified; I08.0 Rheumatic disorders of both mitral and aortic valves; E78.5 Hyperlipidemia, unspecified; Z87.891 Personal history of nicotine dependence; Z79.82 Long term (current) use of aspirin; Z79.02 Long term (current) use of antithrombotics/antiplatelets; Z79.899 Other long term (current) drug therapy
CPT/HCPCS: 70450; 70551; 71046; 72157; 72158; 80048; 80053; 80061; 81003; 81015; 82306; 82550; 82607; 82728; 82746; 83036; 83605; 83735; 84443; 84484; 85025; 85027; 86038; 86041; 86140; 87040; 87086; 87147; 87186; 92610; 92612; 93005; 93306; 93312; 93320; 93325; 97116; 97163; 97167; 97530; 97535; 99285; A9575

== ENCOUNTER 2025-06-25 12:42 | Inpatient (IN) | payer MEDICARE, OTHER, SELFPAY ==
[2025-06-25] VITALS (10 sets, daily range): BP systolic 112–147; BP diastolic 68–94; BMI 21.3; BMI 20.6
--- NOTE | 2025-06-25 09:03 | ED.GENMED ---
History of Present Illness
General
Chief Complaint: Numbness
Source: patient and records
Exam Limitations: none
Time Seen by Provider: 06/25/25 08:52
Nursing documentation reviewed up to this point in time: agreed with
History of Present Illness
History of Present Illness:
80-year-old male with past medical history of CVA, polymyalgia rheumatica who presents to the ER for evaluation of left-sided numbness. Patient has had multiple admissions this summer�presented in early May with expressive aphasia and found to
have an acute CVA and at that time was started on dual antiplatelet therapy and statin. He was having some weakness in his legs shortly thereafter and thought that these medications were contributing and so it sounds like he discontinued them after
3 days. Leg weakness continued and he was seen in the ER in late May and diagnosed with likely flare of his polymyalgia rheumatica and in consultation with rheumatology he was started on prednisone taper (he remains on prednisone taper currently).
Unfortunately he then returned to the emergency room in early June with acute onset dizziness and was found to have another acute CVA. At this time he was restarted on statin and dual platelet therapy and he says he has been compliant since.
He comes to the emergency room today for left-sided numbness. He says that his symptoms started yesterday morning and have been constant since that time. Initially he attributed to some positional numbness as he says that this sensation is similar
to when his arm falls asleep however symptoms have not improved today and so he came to the ER to be evaluated. He describes numbness in the entire left hand and up the left forearm. He says the left side of his face feels numb. He says that he
has some numbness in his left foot as well. He does not feel weakness or heaviness on the left side. He has not noticed any facial droop. He has not had any speech issues�he says speech has normalized since his stroke in May and he has no acute
issues with his speech today. He denies any change in his vision. He denies any other acute complaints including recent chest pain, palpitations.
Past History
Past History
ED Past Medical History: CVA and Other (PMR )
ED Past Surgical History: Orthopedic
Social History
Tobacco: Non-smoker
Alcohol: None
Personal:
Living: with family
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
Review of Systems
Review of Systems
All Other Systems: ROS reviewed and negative except as documented in HPI and ROS
Respiratory: Denies trouble breathing
Cardiac: Denies chest pain
ABD/GI: Denies abdominal pain, nausea or vomiting
: Denies flank pain
Musculoskeletal: Denies neck pain or back pain
Neurological: Reports numbness; Denies dizzy, headache or weakness
Phy Exam
Physical Exam
Physical Exam:
General: Awake, alert, oriented x3; no acute distress
Head: Normocephalic, atraumatic
Eyes: Conjunctiva normal, EOMI, pupils equal round and reactive to light
Throat: Airway intact, handling secretions
Neck: Trachea midline, supple without meningismus
Lungs: Clear to auscultation bilaterally, no wheezing, rales, rhonchi
Heart: Regular rate and rhythm, no murmurs, gallops, or rubs
Neuro: Left-sided facial numbness V1, V2, and V3 distribution of the trigeminal nerve; no facial droop or other cranial nerve deficits noted; in the left upper extremity he has decreased sensation entire the hand palmar and dorsal surface as well as
on the ventral surface of the forearm, sensation on the dorsal surface of the forearm appears to be intact and sensation appears to be intact in the upper arm and the left; on exam of the lower extremities he has some mild diminished sensation on
the dorsum of the left foot as well as on the inner aspect of the right calf�right calf numbness he says is chronic after surgery in the distant past; motor exam intact in the bilateral upper and lower extremities 5/5 proximally and distally; no
limb ataxia; no dysarthria or aphasia noted
Skin: Warm and dry with no rash noted
Extremities: No edema in extremities, equal pulses in all extremities�specifically no edema in the left upper extremity and strong left radial pulse
Scores
NIH Stroke Score
Level of Consciousness: 0 - Alert
LOC Questions: 0-Answers both correctly
LOC Commands: 0-Performs both correctly
Best Horizontal Gaze: 0-Normal
Visual Carroll: 0=Normal, no visual loss
Facial Palsy: 0=Normal, symmetrical
Motor - Right Arm: 0=No drift 10 seconds
Motor - Left Arm: 0=No drift 10 seconds
Motor - Right Le-No drift 5 seconds
Motor - Left Le-No drift 5 seconds
Limb Ataxia: 0-Absent
Sensation: 1-Mild loss
Best Language: 0-No aphasia
Dysarthria: 0-Normal
Extinction and Inattention: 0-No abnormality
NIH Total Score:: 1
Thrombolytic Contraindication
Inclusion and Exclusion criteria reviewed: Yes
Reasons for NON-Tx with Thrombolytics ABSOLUTE Exclusions: Greater than 4.5 hrs from onset of sxs
Reasons for NON-Tx with Thrombolytics POSSIBLE Exclusions: Recent ischemic stroke within 3 months
Course
Orders/Labs/Results
Orders:
Orders
06/25/25 09:27
Electrocardiogram (*1) Stat
Reason for Study: Other
Other Reason for Exam: neuro symptoms
CT Head W/o Iv Contrast Urgent
Comment:
Reason For Exam: left sided numbness
NEUROLOGY CONSULT Urgent
Consulting Provider: Kamran Figueroa
Was physician already notified: Yes
Cardiac Monitoring- Treatment ONCE
EKG- Treatment ONCE
06/25/25 09:44
Complete Blood Count/With Diff Urgent
Comprehensive Metabolic Panel Urgent
PTT Urgent
Prothrombin Time Urgent
06/25/25 10:55
CT Chest/abd/pel W Iv Cont Routine
Comment:
Reason For Exam: embolic stroke, unexplained wt loss, IV/PO contras
06/25/25 11:24
Iohexol [Omnipaque] 50 ml .ROUTE .STK-MED ONE
06/25/25 11:28
Iohexol [Omnipaque] See Protocol PO NOW STA
06/25/25 12:00
Clopidogrel Bisulfate [Plavix] 75 mg PO DAILY
Pantoprazole [Protonix] 40 mg PO DAILY
Abnormal Lab Results
06/25/25
09:44
WBC 13.3 H 10^3/uL
(4.8-10.8)
RBC 3.90 L 10^6/uL
(4.70-6.10)
Hgb 11.0 L g/dL
(13.0-18.0)
Hct 34.4 L %
(39.0-52.0)
MCHC 32.0 L g/dL
(33.0-37.0)
RDW 16.5 H %
(11.5-14.5)
Abs Immat Gran (auto) 0.6 H 10^3/uL
(0-0.05)
Absolute Neuts (auto) 11.4 H 10^3/uL
(1.4-6.5)
Absolute Lymphs (auto) 0.8 L 10^3/uL
(1.2-3.4)
Immature Gran % 4.4 H %
(0-0.5)
Neutrophils % 85.5 H %
(42.2-75.2)
Lymphocytes % 5.7 L %
(20.5-51.1)
Glucose 165 H mg/dl
(70-99)
Total Protein 6.1 L g/dl
(6.3-8.2)
06/25/25 09:44
06/25/25 09:44
Vital Signs
Initial and Last Documented VS:
Initial Vital Signs
Temp Pulse Resp BP Pulse Ox
36.8 C 89 18 142/80 98
06/25/25 08:46 06/25/25 08:46 06/25/25 08:46 06/25/25 08:46 06/25/25 08:46
Last Documented Vital Signs
Temp Pulse Resp BP Pulse Ox
36.8 C 69 19 127/83 95
06/25/25 08:46 06/25/25 11:00 06/25/25 11:00 06/25/25 11:00 06/25/25 11:00
MDM/Problems Addressed
Differential Diagnosis Includes:
CVA�ischemic versus hemorrhagic, peripheral neuropathy, electrolyte derangement
MDM/Problems Addressed:
80-year-old male with history as noted including 2 admissions for CVA this summer presents to the ER for evaluation of left-sided numbness as described above. Symptoms started yesterday morning and have been consistent since then. Denies weakness.
Vitals and exam as above. Concern would be for another ischemic stroke despite dual and platelet therapy or for possibly hemorrhagic stroke. He did not have any weakness or numbness with prior strokes ruling out recrudescence. Distribution of
symptoms seems inconsistent with a peripheral neuropathy. Will plan to place an IV check labs including a CBC and a CMP, coags. Will check EKG. Sent for a CT head. Case was discussed with neurology for consultation.
Labs reviewed: CBC shows marginal anemia which is essentially stable. Leukocytosis noted in the setting of recent steroid use. Chemistry shows mild hyperglycemia but otherwise unremarkable. CT head shows no acute abnormalities. EKG shows sinus
rhythm. Case discussed with neurology�patient will need hypercoagulable workup given repeated episodes without clear etiology. Discussed case with hospitalist for admission.
Chronic conditions affecting care:
Prior strokes
*Radiology
Radiology exam reviewed: radiology read reviewed
*Pulse Oximetry
SaO2: 98
Oxygen Mode of Delivery: Room air
Patient hypoxic: no (98%)
*Critical Care Note
Total Time (30-74mins, 75-104mins- exclusive of procedures): Not Applicable
Data Reviewed
Source: patient and records
Patient Management
Discussion with other providers: Hospitalist (Discussed with hospitalist) and Scrap Cutter (Discussed with neurologist)
Escalation/DeEscalation of care consider admission/obs:
Admission indicated
ED Attending Note
-
Portions of this chart may have been created with voice recognition software.� Occasional wrong word or��sound alike� substitutions may have occurred due to the inherent limitations of voice recognition software.
Discharge Plan
Departure
Patient Disposition: Admit
Date of Disposition: 06/25/25
Time of Disposition: 10:48
Admit to doctor: Shahid
Presentation/result/management discussed w/ accepting MD/DO: Hospitalist
Discharge Problem:
Acute CVA (cerebrovascular accident)
Prescriptions:
No Action
prednisone 20 mg tablet
35 mg PO DAILY
loperamide [Imodium] 2 mg Capsule
2 mg PO Q6H PRN (Reason: loose stool)
atorvastatin 40 mg tablet
40 mg PO QPM
amlodipine 5 mg tablet
5 mg PO DAILY
aspirin 81 mg tablet,chewable
81 mg PO DAILY
mecobalamin (vitamin B12) 1,000 mcg tablet,chewable
1,000 mcg PO DAILY
Referrals:
UNKNOWN - PT DOES,NOT KNOW [Family Provider]
Interventions
Interventions:
*Risk Screen - Suicide Last Done: 06/25/25 09:38
*General Assessment Last Done: 06/25/25 09:37
*Neglect/Abuse Screening Last Done: 06/25/25 09:38
*ED- Fall Risk Assessment Last Done: 06/25/25 09:37
*ED COVID-19 Vaccine History Last Done: 06/25/25 09:37
ED- Neurological Assessment Last Done: 06/25/25 09:45
Discharge Date and Time
Print Language: JORDANIAN
--- NOTE | 2025-06-25 09:15 | EDRN ---
Dr. Hensley in room w/ pt at this time.
[2025-06-25 09:57] LABS: Hematocrit 34.4 % (39.0-52.0); Hemoglobin 11.0 g/dL (13.0-18.0); Mean Corp Hgb Conc. 32.0 g/dL (33.0-37.0); Mean Corpuscular Volume 88.2 fL (80.0-94.0); Nucleated Red Blood Cells % 0 % (-); Platelet Count 208 10^3/uL (130-400); Red Cell Dist. Width 16.5 % (11.5-14.5)
[2025-06-25 10:04] LABS: APTT 24.2 Sec (23.4-35.0); INR 1.00; PT 13.5 Sec (11.4-14.6)
[2025-06-25 10:10] LABS: ALT (SGPT) 24 U/L (0-50); AST (SGOT) 21 U/L (17-59); Albumin 3.5 g/dl (3.5-5.0); Alkaline Phosphatase 62 U/L (38-126); Blood Urea Nitrogen 20 mg/dl (9-20); Calcium 8.5 mg/dl (8.4-10.2); Carbon Dioxide 25 mmol/L (22-30); Chloride 107 mmol/L (98-107); Estimated Creatinine Clearance 85 ml/min; Glucose 165 mg/dl (70-99); Potassium 3.9 mmol/L (3.5-5.1); Sodium 137 mmol/L (135-145); Total Protein 6.1 g/dl (6.3-8.2); eGFR > 60.00
--- NOTE | 2025-06-25 10:41 | CON.NEURO ---
Neuro Assessment/Plan
Assessment
head ct 06/01 no bleed, there is left thalamic subacute lacune
MRI brain 06/01 acute infarct b/l BG, thalami embolic pattern
DANIELLA no clot, no PFO
apple watch no afib
HDL 39, LDL 96
80 year old man with embolic stroke of unknown source (ESUS) with unexplained weight loss my concern that he has cancer and is hypercoagulable.
Plan
CT torso with IV/PO contrast for suspicion of cancer
stroke secondary prevention continue ASA 81, Lipitor 40 for now
Consultation
Order
Date of Consultation: 06/25/25
Requesting Provider: Shellie
Reason for Consult: Stroke
Subjective/Objective
Subjective Data
Date of Service: June 25, 2025
from ED notes:
80-year-old male with past medical history of CVA, polymyalgia rheumatica who presents to the ER for evaluation of left-sided numbness. Patient has had multiple admissions this summer�presented in early May with expressive aphasia and found to
have an acute CVA and at that time was started on dual antiplatelet therapy and statin. He was having some weakness in his legs shortly thereafter and thought that these medications were contributing and so it sounds like he discontinued them after
3 days. Leg weakness continued and he was seen in the ER in late May and diagnosed with likely flare of his polymyalgia rheumatica and in consultation with rheumatology he was started on prednisone taper (he remains on prednisone taper currently).
Unfortunately he then returned to the emergency room in early June with acute onset dizziness and was found to have another acute CVA. At this time he was restarted on statin and dual platelet therapy and he says he has been compliant since.
He comes to the emergency room today for left-sided numbness. He says that his symptoms started yesterday morning and have been constant since that time. Initially he attributed to some positional numbness as he says that this sensation is similar
to when his arm falls asleep however symptoms have not improved today and so he came to the ER to be evaluated. He describes numbness in the entire left hand and up the left forearm. He says the left side of his face feels numb. He says that he
has some numbness in his left foot as well. He does not feel weakness or heaviness on the left side. He has not noticed any facial droop. He has not had any speech issues�he says speech has normalized since his stroke in May and he has no acute
issues with his speech today. He denies any change in his vision. He denies any other acute complaints including recent chest pain, palpitations.
I saw him 06/02 for embolic stroke, at which time he had DANIELLA showing no source of emboli. He has been wearing apple watch and there is no afib
to me, he says it is mainly tingling in left forearm/face and denies sensory deficit
He appears thinner than I remember, and when questioned admits to unexplained weight loss, his entire life he says he weighed ~170 pounds (77kg) last admission 64.6 kg, and today 71.3 even though he looks thinner than I remember
Objective Data
Vital Signs
Temp Pulse Resp BP Pulse Ox
36.8 C 65 17 118/70 95
06/25/25 08:46 06/25/25 10:15 06/25/25 10:15 06/25/25 10:00 06/25/25 10:15
Lab Results
06/25/25 09:44
06/25/25 09:44
PT 13.5 Sec (11.4-14.6) 06/25/25 09:44
INR 1.00 06/25/25 09:44
APTT 24.2 Sec (23.4-35.0) 06/25/25 09:44
Sodium 137 mmol/L (135-145) 06/25/25 09:44
Potassium 3.9 mmol/L (3.5-5.1) 06/25/25 09:44
BUN 20 mg/dl (9-20) 06/25/25 09:44
Glucose 165 mg/dl (70-99) H 06/25/25 09:44
Calcium 8.5 mg/dl (8.4-10.2) 06/25/25 09:44
Patient Allergies
No Known Allergies Allergy (Verified 06/01/25 10:41)
Medications
-
Home Medications
�Medication �Instructions �Recorded
prednisone 15 mg PO DAILY Anti-Inflammatory 06/01/25
amlodipine 5 mg tablet 5 mg PO DAILY #30 tabs 06/05/25
aspirin 81 mg chewable tablet 81 mg PO DAILY #30 tabs 06/05/25
atorvastatin 40 mg tablet 40 mg PO QPM #30 tabs 06/05/25
azithromycin 250 mg tablet 500 mg (2 x 250 mg) PO DAILY 1 day 06/05/25
#2 tabs
cefdinir 300 mg capsule 300 mg PO BID 1 day #2 caps 06/05/25
clopidogrel 75 mg tablet 75 mg PO DAILY 17 days #17 tabs 06/05/25
mecobalamin (vitamin B12) 1,000 1,000 mcg PO DAILY #30 tabs 06/05/25
mcg chewable tablet
[2025-06-25] MEDS: OMNIPAQUE 50 ML PO (11:28)
--- NOTE | 2025-06-25 11:32 | EDRN ---
CT scan called and informed pt is now drinking oral contrast.
--- NOTE | 2025-06-25 11:41 | EDRN ---
Dr. Galarza in room w/ pt at this time.
--- NOTE | 2025-06-25 12:13 | HPS.HSE ---
Family Physician
-
Family Physician: NOT KNOW UNKNOWN - PT DOES
Chief Complaint
-
Left-sided paresthesia
History of Present Illness
Patient is a 8 years old male with history of polymyalgia rheumatica and giant cell arteritis currently on prednisone taper who was recently hospitalized in 2 occasions on 05/07/2025 and 06/01/2025 with new diagnosis of multifocal bilateral CVA.
Patient was discharged home on 06/05 on dual antiplatelet therapy as well as recommended by rheumatology prednisone taper. He was feeling well up until day prior to presentation when he developed left face and left upper extremity tingling. He
denies any syncope, vision loss, speech problem, not had any other motor complaints.
Upon presentation to the emergency room patient was found to be hemodynamically stable, afebrile with no focal neurologic findings other than left facial and left upper extremity paresthesia.
Medical History
Past Medical History
Past Medical History: Reports Other (Polymyalgia rheumatica, giant cell arteritis); Denies Arrhythmia
Past Surgical History: Reports None
Social History
Tobacco: Non-smoker
Alcohol: None
Drug: None
Living: With Family
Employment: Retired
Family History
Family History: Not pertinent
Allergies / Home Medications
Allergies reflects when Allergies were last updated in [facility].
Home Medications with original date entered in [facility]
Allergy/Medication List:
Allergies
Allergy/AdvReac Type Severity Reaction Status Date / Time
No Known Allergies Allergy Verified 06/01/25 10:41
Home Medications
amlodipine 5 mg tablet 5 mg PO DAILY Blood Pressure 06/25/25
aspirin 81 mg chewable tablet 81 mg PO DAILY Blood Clot Prevention/Tx 06/25/25
atorvastatin 40 mg tablet 40 mg PO QPM High Cholesterol 06/25/25
loperamide 2 mg capsule 2 mg PO Q6H PRN loose stool 06/25/25
mecobalamin (vitamin B12) 1,000 mcg chewable tablet 1,000 mcg PO DAILY Supplement 06/25/25
prednisone 20 mg tablet 35 mg PO DAILY PMR 06/25/25
Review of Systems
-
History Source: Patient
Constitutional: Reports Weight Loss
EENT: Reports No Symptoms
Respiratory: Reports No Symptoms
Cardiac: Reports No Symptoms
Abdomen/GI: Reports No Symptoms
: Reports No Symptoms
Musculoskeletal: Reports No Symptoms
Skin: Reports No Symptoms
Neurological: Reports See HPI
Endocrine: Reports No Symptoms
Physical Exam
Vital Signs
Vital Signs
Temp Pulse Resp BP Pulse Ox
98.3 F 69 19 127/83 95
06/25/25 08:46 06/25/25 11:00 06/25/25 11:00 06/25/25 11:00 06/25/25 11:00
Physical Exam
General: Well Developed, Well Nourished and No Apparent Distress
HEENT: NormoCephalic, Moist mucous membranes and Atraumatic
Respiratory: Clear
Cardiac: S1/S2 and Regular Rhythm; No Murmur or Rub
GI: Soft, Non Tender, Non Distended and Normal Bowel Sounds; No Organomegaly
Rectal: Deferred by Provider
Musculoskeletal: No Clubbing, No Cyanosis and No Edema
Skin: No Rash
Neuro: Nonfocal/grossly intact
Laboratory Results
-
06/25/25 09:44
06/25/25 09:44
Laboratory Results
PT 13.5 Sec (11.4-14.6) 06/25/25 09:44
INR 1.00 06/25/25 09:44
APTT 24.2 Sec (23.4-35.0) 06/25/25 09:44
Total Bilirubin 0.5 mg/dl (0.2-1.3) 06/25/25 09:44
AST 21 U/L (17-59) 06/25/25 09:44
ALT 24 U/L (0-50) 06/25/25 09:44
Alkaline Phosphatase 62 U/L (38-126) 06/25/25 09:44
Impression/Plan
-
IMPRESSION:
80 years old male recently hospitalized with multifocal bilateral CVA, history of PMR/giant cell arteritis prednisone taper presents with less than 24 hours onset of left face and left upper extremity paresthesia..
Concern for recurrent CVA/TIA
Other conditions:*
Polymyalgia rheumatica/giant cell arteritis proven by biopsy. Currently on prednisone taper
Essential hypertension
COPD without exacerbation
Former smoker
Unintentional weight loss
PLAN:
Concern for recurrent CVA/TIA.
MRI of the brain 06/01 with foci of restricted diffusion within the bilateral thalami and posterior right basal ganglia consistent with acute infarcts.
CT scan on admission with no acute abnormalities.
Patient neurologically stable with only complaint of the left face and upper extremity paresthesia with no focal findings.
NIH stroke scale of 1. Patient is not a candidate for lytic treatment given low NIH stroke scale as well as duration of symptoms.
Recent vascular imaging with CTA with no focal stenosis.
Echocardiogram, DANIELLA with no cardioembolic source.
Cardiac monitoring including patient's Apple Watch without evidence of arrhythmia explaining bilateral CVA.
Has been compliant with outpatient DAPT
Admit for further monitoring and workup.
Differential diagnosis: Recurrent CVA with concern for hypercoagulable state, versus? Vasculitis
Sed rate/CRP
Repeat MRI of the brain
MRA
Extent DAPT duration with aspirin and Plavix
PPI prophylaxis
Continue statin
Discussed with neurology
Unintentional weight loss.
No specific complaints.
Reports good appetite.
Given concern for hypercoagulable state and recurrent CVA we will go ahead with CT scan of the chest abdomen and pelvis looking for occult malignancy.
Polymyalgia rheumatica
Continue prednisone taper as recommended
Currently on prednisone 35 mg a day through 8/28, then reduce by 5 mg weekly as recommended by rheumatology
Primary metal sorter Dr. Oren Wong
Essential hypertension
Goal normotension
Continue amlodipine
--- NOTE | 2025-06-25 12:45 | CM ---
Met with patient and his daughter at the bedside
Pharmacy verified: [facility] @ [address] [facility], [place]
Family Physician verified: DR. Fredi Dang @ [facility]; [address] [facility] [address]; [place] [id number];
Lives along; multilevel home; 3 steps to enter; 13 steps between floors; Uses Chair Lift; 2nd floor bathrooms; one has shower stall the other has tub w/ shower
PLOF: reported he was independent with ADLs, has a cane but not using it w/ambulation; stairs are a challenge; 'no endurance'. His daughter lives nearby and provides assistance as needed; He was driving and drove self to hospital
No SNF utilization history; Recently discharged by [facility]; if HH/VN is recommended; agency preference is [facility]
Transport: family will provide transport home
Discharge plan to be determined pending hospital course; Case Management will monitor and support if/when needs identified
[2025-06-25] MEDS: PLAVIX 75 MG PO (12:50)
[2025-06-25] MEDS: PROTONIX 40 MG PO (12:50)
--- NOTE | 2025-06-25 13:40 | EDRN ---
ESR and CRP blood drawn and sent to lab
[2025-06-25 13:58] LABS: C-Reactive Protein < 5.00 mg/L (0.0-10.00)
--- NOTE | 2025-06-25 14:25 | EDRN ---
Attempted to give NIHSS and swallow test verbal at this time though RN unable to come to phone.
--- NOTE | 2025-06-25 14:35 | EDRN ---
Called floor again to discuss NIHSS and swallow test at this time w/ RN caring for pt.
--- NOTE | 2025-06-25 15:15 | EDRN ---
This RN discussed NIHSS score and swallow test w/ pt's RN WIll RN on 4th floor west at this itme.
[2025-06-25] MEDS: DELTASONE PO ×3 (17:31→17:32)
[2025-06-25] MEDS: HEPARIN 5000 UNITS SC (17:32)
[2025-06-25] MEDS: LIPITOR 40 MG PO (17:35)
[2025-06-26] VITALS (7 sets, daily range): BP systolic 119–140; BP diastolic 64–88; PULSE 71–74; O2SAT 95
[2025-06-26] MEDS: HEPARIN 5000 UNITS SC ×3 (00:12→17:04)
[2025-06-26] MEDS: PLAVIX 75 MG PO (07:53)
[2025-06-26] MEDS: DELTASONE 20 MG PO (07:53)
[2025-06-26] MEDS: PROTONIX 40 MG PO (07:54)
[2025-06-26] MEDS: NORVASC 5 MG PO (07:54)
[2025-06-26] MEDS: DELTASONE 5 MG PO (07:54)
[2025-06-26] MEDS: VITAMIN B-12 1000 MCG PO (07:54)
[2025-06-26] MEDS: DELTASONE 10 MG PO (07:55)
[2025-06-26] MEDS: LOW STRENGTH ASPIRIN 81 MG PO (07:55)
[2025-06-26 08:46] LABS: Very Low Density Lipoprotein 25 mg/dl (0-30)
[2025-06-26 08:58] LABS: HDL Cholesterol 128 mg/dl; LDL Cholesterol, Calculated 37 mg/dl
--- NOTE | 2025-06-26 11:50 | ED.GENMED ---
History of Present Illness
General
Chief Complaint: Numbness
Time Seen by Provider: 06/25/25 08:52
Past History
Past History
ED Past Medical History: CVA and Other (PMR )
ED Past Surgical History: Orthopedic
Social History
Tobacco: Non-smoker
Alcohol: None
Personal:
Living: with family
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
Course
Orders/Labs/Results
Orders:
Orders
06/25/25 09:27
Electrocardiogram (*1) Stat
Reason for Study: Other
Other Reason for Exam: neuro symptoms
CT Head W/o Iv Contrast Urgent
Comment:
Reason For Exam: left sided numbness
NEUROLOGY CONSULT Urgent
Consulting Provider: Kamran Figueroa
Was physician already notified: Yes
Cardiac Monitoring- Treatment ONCE
EKG- Treatment ONCE
06/25/25 09:44
Complete Blood Count/With Diff Urgent
Comprehensive Metabolic Panel Urgent
PTT Urgent
Prothrombin Time Urgent
06/25/25 10:55
CT Chest/abd/pel W Iv Cont Routine
Comment:
Reason For Exam: embolic stroke, unexplained wt loss, IV/PO contras
06/25/25 11:24
Iohexol [Omnipaque] 50 ml .ROUTE .[facility]
06/25/25 11:28
Iohexol [Omnipaque] See Protocol PO NOW STA
06/25/25 12:00
Clopidogrel Bisulfate [Plavix] 75 mg PO DAILY
Pantoprazole [Protonix] 40 mg PO DAILY
06/25/25 12:04
Admit/Transfer Patient As Directed
Co-Sign Provider:
Level of Care: Inpatient admission
Assign to:: Telemetry
Physician / Group: Geovanni
Diagnosis: TIA/CVA
Reason for Telemetry: Arrhythmia
Date to Stop Telemetry: 06/28/25
Time to Stop Telemetry: 11:00
Reason for Hospitalization: TIA, CVA
Expected length of stay greater than two midnights?: Yes
ELOS- Estimated Length of Stay in days: 2
I certify the patient meets the requirements for IP care: Yes
Code Status As Directed
Resuscitation Status: Full Code
06/25/25 12:11
PRN Pain Medication Management As Directed
May give lesser potent ordered pain med per pt: Yes
preference::
Protocol:: Medication orders for pain may be administered in a
manner that supports deferring to patient preference
when the pt is:
- Requesting an ordered lesser potent pain medication.
Least to most potent pain medications are defined
as: acetaminophen < NSAID < tramadol < opioids
(morphine, oxycodone, hydromorphone).
- Requesting a lesser dose of the same medication IF
ORDERED.
- Requesting a less intrusive route of administration
if both routes are prescribed by the provider (PO <
IV).
06/25/25 13:31
CRP [C-Reactive Protein] Urgent
ESR [Erythrocyte Sed Rate] Urgent
06/25/25 14:29
Acetaminophen [Tylenol/Feverall] 650 mg RECTAL Q4HPRN PRN
Acetaminophen [Tylenol] 650 mg PO Q4HPRN PRN
Loperamide [Imodium] 2 mg PO Q6HPRN PRN loose stool
06/25/25 14:29
Case Management Consult ONCE
Case Management Consult: Discharge Planning
Comment: stroke/tia
DIETARY IP CONSULT Routine
Reason for Consult: stroke/TIA
NEUROLOGY CONSULT Urgent
Consulting Provider: Kamran Figueroa
Was physician already notified: Yes
[employer] Personal Property Urgent
MA [place] Routine
Comment:
Reason For Exam: stroke/TIA
Recent pill cam endoscopy?: No
MA Neck With Contrast Routine
Comment:
Reason For Exam: stroke/TIA
Recent pill cam endoscopy?: No
Activity As Directed
Activity Level: As Tolerated
NIH Stroke Scale As Directed
Directions: Per protocol
Comment: every shift and with any change in condition or mental status
Neurological Checks As Directed
Frequency: q4h
Additional Instructions:: q4h x 24h upon admission to the floor, then qshift & with any change in condition
and mental status
Patient Education As Directed
Type: Stroke education packet
Comment: provide to patient and family
Pneumatic Compression Sleeves As Directed
Type: Knee high
Swallow Screening CVA/TIA ONLY As Directed
Comment: NPO until swallowing screening completed
If patient FAILS swallow screening:: NPO, Speech Therapy consult, Aspiration Precautions
If patient PASSES swallow screening, diet:: Regular
Above diet order entered?: Yes- passed screening
Vital Signs As Directed
Frequency: Per unit guidelines
Ot Eval And Treat Routine
Pt Eval And Treat Routine
Activity Level: As Tolerated
Speech Therapy Eval & Treat Routine
DX Deep Vein Thrombosis Video Routine
06/25/25 16:00
Heparin 5,000 units SC Q8
06/25/25 18:00
Atorvastatin [Lipitor] 40 mg PO QPM
06/26/25 06:44
Cardiovascular Evaluation IN AM
06/26/25 08:00
Amlodipine [Norvasc] 5 mg PO DAILY
Aspirin Chewable [Low Strength Aspirin] 81 mg PO DAILY
Cyanocobalamin [Vitamin B-12] 1,000 mcg PO DAILY
06/28/25 11:00
DC Protocol for Telemetry ONCE
Abnormal Lab Results
06/25/25
09:44
WBC 13.3 H 10^3/uL
(4.8-10.8)
RBC 3.90 L 10^6/uL
(4.70-6.10)
Hgb 11.0 L g/dL
(13.0-18.0)
Hct 34.4 L %
(39.0-52.0)
MCHC 32.0 L g/dL
(33.0-37.0)
RDW 16.5 H %
(11.5-14.5)
Abs Immat Gran (auto) 0.6 H 10^3/uL
(0-0.05)
Absolute Neuts (auto) 11.4 H 10^3/uL
(1.4-6.5)
Absolute Lymphs (auto) 0.8 L 10^3/uL
(1.2-3.4)
Immature Gran % 4.4 H %
(0-0.5)
Neutrophils % 85.5 H %
(42.2-75.2)
Lymphocytes % 5.7 L %
(20.5-51.1)
Glucose 165 H mg/dl
(70-99)
Total Protein 6.1 L g/dl
(6.3-8.2)
06/25/25 09:44
06/25/25 09:44
Vital Signs
Initial and Last Documented VS:
Initial Vital Signs
Temp Pulse Resp BP Pulse Ox
98.3 F 89 18 142/80 98
06/25/25 08:46 06/25/25 08:46 06/25/25 08:46 06/25/25 08:46 06/25/25 08:46
Last Documented Vital Signs
Temp Pulse Resp BP Pulse Ox
97.8 F 64 18 134/69 96
06/26/25 16:00 06/26/25 16:00 06/26/25 16:00 06/26/25 16:00 06/26/25 16:00
*Pulse Oximetry
SaO2: 98
Oxygen Mode of Delivery: Room air
ED Attending Note
-
Portions of this chart may have been created with voice recognition software.� Occasional wrong word or��sound alike� substitutions may have occurred due to the inherent limitations of voice recognition software.
Discharge Plan
Departure
Patient Disposition: Admit
Date of Disposition: 06/25/25
Time of Disposition: 10:48
Admit to doctor: Shahid
Presentation/result/management discussed w/ accepting MD/DO: Hospitalist
Discharge Problem:
Acute CVA (cerebrovascular accident)
Interventions
Interventions:
*Risk Screen - Suicide Last Done: 06/25/25 09:38
*General Assessment Last Done: 06/25/25 09:37
*Neglect/Abuse Screening Last Done: 06/25/25 09:38
*ED- Fall Risk Assessment Last Done: 06/25/25 09:37
*ED COVID-19 Vaccine History Last Done: 06/25/25 17:07
*Nursing Disposition Last Done: 06/25/25 14:20
ED- Neurological Assessment Last Done: 06/25/25 09:45
Discharge Date and Time
Discharge Date/Time: 06/25/25 14:20
--- NOTE | 2025-06-26 13:04 | CON.PUL ---
Consultation
Consultation Request
Date/Time Consultation Requested: 06/26/25
Date/Time Consultation Performed: 06/26/25
Performing Provider: Dougie
Reason for Consultation: Lung mass
Medical History
-
History of Present Illness:
Patient is an 80-year-old male with previous history of pulm nodule rheumatica, giant cell arteritis on chronic prednisone, new diagnosis of multifocal bilateral CVA presenting with left face and left upper extremity tingling, readmitted for
possible repeat TIA versus CVA. He was recently discharged on 05/07/2025 and 06/01/2025 for similar presentations.
On chest imaging he has spiculated mass in the right lower lobe measuring 3.9 x 3.4 x 4.0 cm. Prior chest x-ray on 06/01/2025 noted possible pneumonia. He has had no other prior chest imaging for review.
Denies prior known history of lung disease, was a former smoker of about 5 years, quit 20 years ago. Reports exposures to asbestos and paper products in his life. No family history of lung disease noted.
Past Medical History
Past Medical History: Other (see list below)
Social History
Tobacco: Former Smoker
Alcohol: None
Drug: None
Family History
Family History: Reviewed & Not Pertinent
Allergies / Home Medications
Allergies
Allergy/AdvReac Type Severity Reaction Status Date / Time
No Known Allergies Allergy Verified 06/01/25 10:41
Home Medications
�Medication �Instructions �Recorded �Confirmed �Last Taken �Type
amlodipine 5 mg tablet 5 mg PO DAILY Blood Pressure 06/25/25 06/25/25 Unknown History
aspirin 81 mg chewable tablet 81 mg PO DAILY Blood Clot 06/25/25 06/25/25 Unknown History
Prevention/Tx
atorvastatin 40 mg tablet 40 mg PO QPM High Cholesterol 06/25/25 06/25/25 Unknown History
loperamide 2 mg capsule 2 mg PO Q6H PRN loose stool 06/25/25 06/25/25 Unknown History
mecobalamin (vitamin B12) 1,000 1,000 mcg PO DAILY Supplement 06/25/25 06/25/25 Unknown History
mcg chewable tablet
prednisone 20 mg tablet 35 mg PO DAILY PMR 06/25/25 06/25/25 Unknown History
Review of Systems
-
History Source: Patient
All other systems: Negative unless noted
Vitals / Labs / Diagnostic Testing
Vital Signs
Temp Pulse Resp BP Pulse Ox
97.9 F 85 18 131/69 98
06/26/25 12:11 06/26/25 12:11 06/26/25 12:11 06/26/25 12:11 06/26/25 12:11
Lab Data
06/25/25 09:44
06/25/25 09:44
Diagnostic Testing:
Physical Exam
-
HEENT: Normocephalic, Anicteric and Moist Mucous Membranes
Cardiovascular: S1/S2 and Regular Rhythm
Respiratory: Clear and Non-Labored Respirations
GI: Soft, Non Distended and Non Tender
Neurology: Awake, Alert, Oriented and No Motor Deficits
Skin: Warm, Dry and Good Color
General: Comfortable and Other (NAD)
Assessment
-
Patient is an 80-year-old male with previous history of pulm nodule rheumatica, giant cell arteritis on chronic prednisone, new diagnosis of multifocal bilateral CVA presenting with left face and left upper extremity tingling, readmitted for
possible repeat TIA versus CVA. He was recently discharged on 05/07/2025 and 06/01/2025 for similar presentations. On chest imaging he has spiculated mass in the right lower lobe measuring 3.9 x 3.4 x 4.0 cm. Prior chest x-ray on 06/01/2025 noted
possible pneumonia. He has had no other prior chest imaging for review. We are consulted for evaluation 06/26/25.
RLL lung mass
Possible CVA
Emphysema on CT
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
Giant Cell Arteritis
Left thalamus CVA
Appendectomy
Left shoulder reconstruction
Right ankle fracture repair
Former smoker
Plan
No oxygen was needed on admission, currently saturating >90% on RA
Prior history of lung disease is NOT noted but he was a former smoker, exposure history noted
Denies prior known history of lung disease
Was a former smoker of about 5 years, quit 20 years ago. Reports exposures to asbestos and paper products in his life.
No family history of lung disease noted.
Suspect patient has lung mass but he has no prior comparative imaging
Recent CXR on 06/01 showing possible posterior mass vs PNA noted
Denies symptoms of SOB, wheezing, tightness
CVA w/u ongoing per team
Neuro consult obtained
Prior ECHO results are reviewed indicating stable findings
Cause for numerous CVAs w/u ongoing
Emphysema noted on CT as well
Will need outpatient pulmonary evaluation in our office for PFTs and 6MWT
Reviewed with patient
We can follow his RLL opacity with repeat imaging in 6-8 weeks w/ CT ION and discuss biopsy as OP
He was in agreement, wants to go home
Discharge planning per team once w/u completes for CVAs
Discussed with care team
We will follow
Diagnostic Data
Chest X-Ray: 06/01/25- On the frontal view, in the lateral aspect of the upper to mid right lung, there is a small focus of parenchymal opacity, suspicious for a small focus of pneumonitis. On the frontal view, hazy increased opacity over the medial
right mid to lower lung and the medial left midlung. On lateral view, subtle parenchymal opacity projecting over the posterior mid to lower lungs. On MRI of the thoracic spine, this appears to correspond to some intermediate T2-weighted signal
within both lungs, right greater than left. These findings are suggestive of bilateral pneumonia. No evidence for associated significant pleural effusion.
CT Scan: CAP 06/25/25- There is a spiculated mass in the right lower lobe measuring 3.9 x 3.4 x 4.0 cm. There are smaller areas of patchy airspace disease/nodule on the right, upper lobe, 1.1 cm, and on the left upper lobe 6 mm. There is a diffuse
emphysematous changes. There is dependent atelectasis in the lung bases. There is a wedge compression fracture of the body of L3, seen on recent MRI. There is vacuum disc phenomena at L4/5 and L5/S1. There is a scoliosis with curvature towards the
right. There are no lytic or sclerotic lesions.
Echo: 06/04/25- Normal biventricular size and systolic function without regional wall motion abnormality. Estimated LVEF 60-65%. Mild/moderate mitral regurgitation. Mild aortic stenosis. Mild/moderate aortic regurgitation. Interatrial septum is intact
with no evidence of shunting by color flow Doppler.
PFT's:
Reports and relevant images were personally reviewed.
Total time spent on this consultation __55__ minutes which includes review of history, physical exam, medications, laboratory data, personal review of imaging, extensive review of outpatient records, discussion with care team and respiratory therapy.
--- NOTE | 2025-06-26 14:19 | CM ---
Patient seen bedside.
Discussed d/c plans with patient and physical therapy recommendations of outpatient, patient declined.
Per patient he would be returning to work.
IMM reviewed and signed.
Plan: home no needs.
--- NOTE | 2025-06-26 14:26 | CON.ONC ---
Consultation
-
Date Consultation Requested: 06/26/25
Date Consultation Performed: 06/26/25
Requesting Provider: Gee Galarza MD
Performing Provider: Dr. Malhotra
Reason for Consultation: New Lung Mass
Impression
Impression
This is a 80 y/o male with pmhx of polymyalgia rheumatica and giant cell arteritis currently on a prednisone taper who presented to the hospital with left face and upper extremity tingling and was found to have a lung mass concering for malignancy
in the right lower lobe.
Plan
Plan
New Lung Mass
-Per Chest/Abd/Pelv CT showed a speculated mass in the right lower lobe measuring 3.9 x 3.4 x 4.0 cm with smaller areas of patchy airspace disease, a 1.1 cm nodule on the right upper lobe, a 6mm upper left lobe nodule
-High clinical concern for malignancy, though DD does include infection
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
-Patient's goal at this time is to leave the hospital as quickly as he can. He should follow up outpatient with pulmonology for biopsy/repeat imaging, as well as monitoring of nodules
-Should mass prove malignant and he desires treatment, he will need outpatient oncology follow up
-Will monitor
Recurrence CVA
-Patient with recurrent CVA and current left sided upper extremity numbness
-Possibly due to hypercoagulation of malignancy (See new lung mass above)
-Per MRI of the brain: new 7.5mm acute ischemic infarct in the right frontal lobe wolff radiate, new 6.1 mm acute ischemic infarct in the right thalamus, multiple subacute bilateral thalamic infarcts, 3.3mm chronic infarct.
-Recommend starting Eliquis for anticoagulation in AM
-Will monitor
Polymyalgia Rheumatic, Giant Cell Arteritis
-Managed by outpatient Rheumatology
-Continue prednisone taper as per primary care team
-Will monitor
Essential Hypertension
-Continue amlodipine
-Will monitor
Patient History
History of Present Illness
This is a 80 y/o male with pmhx of polymyalgia rheumatica and giant cell arteritis currently on a prednisone taper who presented to the hospital with left face and upper extremity tingling. He had recently been hospitalized twice in 05/2025, and
again from 06/01/2025-06/05/2025. At this most recent hospitalization he was diagnosed with multifocal bilateral CVA and discharged to home on dual anti platelet therapy as well as a prednisone taper.
In the ED, Chest/Abd/Pelv CT showed a speculated mass in the right lower lobe measuring 3.9 x 3.4 x 4.0 cm with smaller areas of patchy airspace disease, a 1.1 cm nodule on the right upper lobe, a 6mm upper left lobe nodule. MRI of the brain showed
a new 7.5mm acute ischemic infarct in the right frontal lobe wolff radiate, new 6.1 mm acute ischemic infarct in the right thalamus, multiple subacute bilateral thalamic infarcts, 3.3mm chronic infarct. He was admitted to the hospital for further
care.
Today, he states he is doing well. He reports the numbness that initially brought him into the ED is still present and has not gotten any better or any worse. He is aware of the mass in his lung. He has a personal history of skin cancer of his face,
but no other known history of cancer. He is not in contact with his family so he is not certain if he has any family history of cancer. He does have a history of cigarette use, 5 pack year history and he did quit smoking 20 years ago. He also
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 These spaces can be dark and sometimes damp. He has never worn a respirator or face mask while doing this
job. 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 He reports his only exposure was to CS gas (o-Chlorobenzylidene Malononitrile), which he would acclimate himself to by sitting in a room full of it to develop tolerance. He does
not have any known exposure to agent orange.
His primary concern at this point is masterson diagnosis so he can return to work.
Past-Medical/Surgical History
Polymyalgia rheumatica
Giant cell arteritis
History of multiple CVA
Essential Hypertension
Patient Medication
�Medication �Instructions �Recorded �Confirmed �Last Taken �Type
amlodipine 5 mg tablet 5 mg PO DAILY Blood Pressure 06/25/25 06/25/25 Unknown History
aspirin 81 mg chewable tablet 81 mg PO DAILY Blood Clot 06/25/25 06/25/25 Unknown History
Prevention/Tx
atorvastatin 40 mg tablet 40 mg PO QPM High Cholesterol 06/25/25 06/25/25 Unknown History
loperamide 2 mg capsule 2 mg PO Q6H PRN loose stool 06/25/25 06/25/25 Unknown History
mecobalamin (vitamin B12) 1,000 1,000 mcg PO DAILY Supplement 06/25/25 06/25/25 Unknown History
mcg chewable tablet
prednisone 20 mg tablet 35 mg PO DAILY PMR 06/25/25 06/25/25 Unknown History
Active Medications
Generic Name Dose Route Start Last Admin
Trade Name Freq PRN Reason Stop Dose Admin
Acetaminophen 650 mg 06/25/25 14:29
Acetaminophen 650 Mg Rectal Suppository RECTAL 07/23/25 14:28
Q4HPRN PRN
CASE, mild pain, or temp >100.4F
Acetaminophen 650 mg 06/25/25 14:29
Acetaminophen 325 Mg Tablet PO 07/23/25 14:28
Q4HPRN PRN
CASE, mild pain, or temp >100.4F
Amlodipine Besylate 5 mg 06/26/25 08:00 06/26/25 07:54
Amlodipine 5 Mg Tablet PO 07/24/25 07:59 5 mg
DAILY SIMONE Administration
Aspirin 81 mg 06/26/25 08:00 06/26/25 07:55
Aspirin 81 Mg Chewable Tablet PO 07/24/25 07:59 81 mg
DAILY SIMONE Administration
Atorvastatin Calcium 40 mg 06/25/25 18:00 06/25/25 17:35
Atorvastatin (Lipitor) 40 Mg Tablet PO 07/23/25 17:59 40 mg
QPM SIMONE Administration
Clopidogrel Bisulfate 75 mg 06/25/25 12:00 06/26/25 07:53
Clopidogrel 75 Mg Tablet PO 07/15/25 08:01 75 mg
DAILY SIMONE Administration
Cyanocobalamin 1,000 mcg 06/26/25 08:00 06/26/25 07:54
Cyanocobalamin (Vitamin B-12) 500 Mcg Tablet PO 07/24/25 07:59 1,000 mcg
DAILY SIMONE Administration
Heparin Sodium 5,000 units 06/25/25 16:00 06/26/25 07:55
Heparin 5,000 Units/Ml 1 Ml Vial SC 07/23/25 15:59 5,000 units
Q8 SIMONE Administration
Loperamide HCl 2 mg 06/25/25 14:29
Loperamide 2 Mg Capsule PO 07/23/25 14:28
Q6HPRN PRN
loose stool
Pantoprazole Sodium 40 mg 06/25/25 12:00 06/26/25 07:54
Pantoprazole 40 Mg Delayed Release Tablet PO 07/23/25 11:59 40 mg
DAILY SIMONE Administration
Prednisone 20 mg 06/25/25 15:00 06/26/25 07:53
Prednisone 20 Mg Tablet PO 07/23/25 14:59 20 mg
DAILY SIMONE Administration
Prednisone 10 mg 06/25/25 15:00 06/26/25 07:55
Prednisone 10 Mg Tablet PO 07/23/25 14:59 10 mg
DAILY SIMONE Administration
Prednisone 5 mg 06/25/25 15:00 06/26/25 07:54
Prednisone 5 Mg Tablet PO 07/23/25 14:59 5 mg
DAILY SIMONE Administration
Sodium Chloride 0 flush 06/25/25 15:00
Sodium Chloride 0.9% (Flush) Syringe IV 07/23/25 14:59
PER PROTOCOL SIMONE
Review of Systems
-
History Source: Patient
Constitutional: Denies Fever, Weight Gain, Weight Loss, Fatigue, Sleep Disturbance, Night Sweats, Chills or Weakness
Respiratory: Denies Cough, Trouble Breathing or Wheezing
Cardiac: Denies Chest Pain, Diaphoresis or Palpitations
GI: Denies Abdominal Pain, Nausea, Vomiting, Diarrhea or Constipated
: Reports Incontinence
Neuro: Reports Numbness; Denies Headache or Weakness
Physical Exam
-
General: Well Developed, Well Nourished, No Apparent Distress and Comfortable
Cardiology: Normal Sinus Rhythm, S1 and S2
Pulmonary: Clear
Neurology: No Word Finding Difficulty
Skin: Warm and Dry
Psych: Calm and Intact Judgement/Insight
Labs
Lab Results
WBC 13.3 10^3/uL (4.8-10.8) H 06/25/25 09:44
RBC 3.90 10^6/uL (4.70-6.10) L 06/25/25 09:44
Hgb 11.0 g/dL (13.0-18.0) L 06/25/25 09:44
Hct 34.4 % (39.0-52.0) L 06/25/25 09:44
MCV 88.2 fL (80.0-94.0) 06/25/25 09:44
MCH 28.2 pg (27.0-31.0) 06/25/25 09:44
MCHC 32.0 g/dL (33.0-37.0) L 06/25/25 09:44
RDW 16.5 % (11.5-14.5) H 06/25/25 09:44
Plt Count 208 10^3/uL (130-400) 06/25/25 09:44
MPV 8.8 fL (7.4-10.4) 06/25/25 09:44
Abs Immat Gran (auto) 0.6 10^3/uL (0-0.05) H 06/25/25 09:44
Absolute Neuts (auto) 11.4 10^3/uL (1.4-6.5) H 06/25/25 09:44
Absolute Lymphs (auto) 0.8 10^3/uL (1.2-3.4) L 06/25/25 09:44
Absolute Monos (auto) 0.5 10^3/uL (0.1-0.6) 06/25/25 09:44
Absolute Eos (auto) 0.1 10^3/uL (0-0.7) 06/25/25 09:44
Absolute Basos (auto) 0.1 10^3/uL (0-0.2) 06/25/25 09:44
Immature Gran % 4.4 % (0-0.5) H 06/25/25 09:44
Neutrophils % 85.5 % (42.2-75.2) H 06/25/25 09:44
Lymphocytes % 5.7 % (20.5-51.1) L 06/25/25 09:44
Monocytes % 3.4 % (1.7-9.3) 06/25/25 09:44
Eosinophils % 0.5 % (0-6) 06/25/25 09:44
Basophils % 0.5 % (0-2) 06/25/25 09:44
Creatinine 0.7 mg/dL (0.7-1.3) 06/25/25 09:44
Vital Signs
Vital Signs
Temp Pulse Resp BP Pulse Ox
97.9 F 85 18 131/69 98
06/26/25 12:11 06/26/25 12:11 06/26/25 12:11 06/26/25 12:11 06/26/25 12:11
--- NOTE | 2025-06-26 14:43 | W.PN.HOSP.TC ---
Addendum entered and electronically signed by Gee Galarza MD 06/27/25 16:13:
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
Original Note:
Today's Communication/Plan
-
See plan
Assessment / Plan
Assessment / Plan
Impression:
Recurrent CVA
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
Other conditions:*
Polymyalgia rheumatica/giant cell arteritis proven by biopsy. Currently on prednisone taper
Essential hypertension
COPD without exacerbation
Former smoker
Unintentional weight loss
Plan
Recurrent CVA
Patient presents with acute onset of the left face and left upper extremity paresthesia.
Has been on DAPT upon presentation.
Was not a candidate for lytic treatment given low NIH stroke scale and timing of presentation.
MRI of the brain with new 7.5 mm acute ischemic infarct in the right frontal lobe wolff radiata, new 6.1 mm acute ischemic infarct in the right thalamus. Multiple subacute bilateral thalamic infarcts with several new tiny foci of intraparenchymal
hemorrhage and small foci of enhancement. 3.3 mm chronic infarct in the left cerebral hemisphere.
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
Chest CT with large mass in the right lower lobe consistent with malignancy. Small nodular. Airspace disease. Metastatic disease could not be excluded.
Prior study including echocardiogram/DANIELLA reviewed with no evidence of cardioembolic source
Consult oncology and pulmonary for further workup.
Recommended transition to anticoagulation in coronation with possible biopsy. At time of transition to anticoagulation, Plavix will be discontinued.
Continue neurologic monitoring
Statin
Polymyalgia rheumatica
Continue prednisone taper as recommended
Currently on prednisone 35 mg a day through 06/28, then reduce by 5 mg weekly as recommended by rheumatology
Primary computer systems consultant Dr. Oren Wong
Essential hypertension
Goal normotension
Continue amlodipine
Anticipated Discharge: 24 - 48 hours
Subjective/Interval History
-
Date of Service: June 26, 2025
Objective Data
-
Vital Signs:
Vital Signs
Temp Pulse Resp BP Pulse Ox
97.9 F 85 18 131/69 98
06/26/25 12:11 06/26/25 12:11 06/26/25 12:11 06/26/25 12:11 06/26/25 12:11
I&O
06/25/25 06/26/25 06/27/25
06:59 06:59 06:59
Intake Total 680 / 680
Balance 680 / 680
Physical Exam
-
General: Well Developed, Well Nourished, No Apparent Distress, Comfortable and Conversant; Negative Respiratory Distress
HEENT: Normocephalic, Atraumatic, Nose Appears Normal and Ears Appear Normal; Negative Oxygen
Respiratory: Clear to Auscultation and Non Labored Respirations; Negative Accessory Resp Muscle Use
Cardiac: Regular Rhythm and S1/S2
GI: Soft, Nontender, Nondistended and Normal Bowel Sounds
Skin: Warm and Dry
Neuro: Awake, Alert, Oriented and AO x 3
Psych: Calm and Intact Judgement/Insight
[2025-06-26] MEDS: LIPITOR 40 MG PO (17:04)
[2025-06-27] MEDS: HEPARIN 5000 UNITS SC ×2 (00:07→07:28)
[2025-06-27 03:16] VITALS: BP 130/83
[2025-06-27 07:05] VITALS: BP 146/84
[2025-06-27] MEDS: NORVASC 5 MG PO (07:26)
[2025-06-27] MEDS: PLAVIX 75 MG PO (07:26)
[2025-06-27] MEDS: VITAMIN B-12 1000 MCG PO (07:27)
[2025-06-27] MEDS: PROTONIX 40 MG PO (07:27)
[2025-06-27] MEDS: DELTASONE 10 MG PO (07:27)
[2025-06-27] MEDS: DELTASONE 20 MG PO (07:27)
[2025-06-27] MEDS: DELTASONE 5 MG PO (07:27)
[2025-06-27] MEDS: LOW STRENGTH ASPIRIN 81 MG PO (07:28)
--- NOTE | 2025-06-27 09:24 | W.PN.PUL3 ---
Today's Communication / Plan
-
Doing well, stable on RA
OP FU to be arranged to follow lung nodule
Discharge planning otherwise per team
Assessment
-
Patient is an 80-year-old male with previous history of pulm nodule rheumatica, giant cell arteritis on chronic prednisone, new diagnosis of multifocal bilateral CVA presenting with left face and left upper extremity tingling, readmitted for
possible repeat TIA versus CVA. He was recently discharged on 05/07/2025 and 06/01/2025 for similar presentations. On chest imaging he has spiculated mass in the right lower lobe measuring 3.9 x 3.4 x 4.0 cm. Prior chest x-ray on 06/01/2025 noted
possible pneumonia. He has had no other prior chest imaging for review. We are consulted for evaluation 06/26/25.
RLL lung mass
Possible CVA
Emphysema on CT
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
Giant Cell Arteritis
Left thalamus CVA
Appendectomy
Left shoulder reconstruction
Right ankle fracture repair
Former smoker
Plan
No oxygen was needed on admission, currently saturating >90% on RA
Prior history of lung disease is NOT noted but he was a former smoker, exposure history noted
Denies prior known history of lung disease
Was a former smoker of about 5 years, quit 20 years ago. Reports exposures to asbestos and paper products in his life.
No family history of lung disease noted.
Suspect patient has lung mass but he has no prior comparative imaging
Recent CXR on 06/01 showing possible posterior mass vs PNA noted
Denies symptoms of SOB, wheezing, tightness
CVA w/u ongoing per team
Neuro consult obtained
Prior ECHO results are reviewed indicating stable findings
Cause for numerous CVAs w/u ongoing
Emphysema noted on CT as well
Will need outpatient pulmonary evaluation in our office for PFTs and 6MWT
Reviewed with patient
We can follow his RLL opacity with repeat imaging in 6-8 weeks w/ CT ION and discuss biopsy as OP
He was in agreement, wants to go home
Discharge planning per team
Diagnostic Data
Chest X-Ray: 06/01/25- On the frontal view, in the lateral aspect of the upper to mid right lung, there is a small focus of parenchymal opacity, suspicious for a small focus of pneumonitis. On the frontal view, hazy increased opacity over the medial
right mid to lower lung and the medial left midlung. On lateral view, subtle parenchymal opacity projecting over the posterior mid to lower lungs. On MRI of the thoracic spine, this appears to correspond to some intermediate T2-weighted signal
within both lungs, right greater than left. These findings are suggestive of bilateral pneumonia. No evidence for associated significant pleural effusion.
CT Scan: CAP 06/25/25- There is a spiculated mass in the right lower lobe measuring 3.9 x 3.4 x 4.0 cm. There are smaller areas of patchy airspace disease/nodule on the right, upper lobe, 1.1 cm, and on the left upper lobe 6 mm. There is a diffuse
emphysematous changes. There is dependent atelectasis in the lung bases. There is a wedge compression fracture of the body of L3, seen on recent MRI. There is vacuum disc phenomena at L4/5 and L5/S1. There is a scoliosis with curvature towards the
right. There are no lytic or sclerotic lesions.
Echo: 06/04/25- Normal biventricular size and systolic function without regional wall motion abnormality. Estimated LVEF 60-65%. Mild/moderate mitral regurgitation. Mild aortic stenosis. Mild/moderate aortic regurgitation. Interatrial septum is intact
with no evidence of shunting by color flow Doppler.
PFT's:
Reports and relevant images were personally reviewed.
Total time spent on this consultation __40__ minutes which includes review of history, physical exam, medications, laboratory data, personal review of imaging, extensive review of outpatient records, discussion with care team and respiratory therapy.
Subjective Data
-
Date of Service:
Date of Service: June 27, 2025
Chief Complaint: Pulmonary Follow Up
Subjective:
No new complaints
Stable on room air, wants to go home
Objective Data
Data Reviewed
Vital Signs / I&O / Oxygen:
Vital Signs
Temp Pulse Resp BP Pulse Ox
97.7 F 72 18 146/84 97
06/27/25 07:05 06/27/25 07:05 06/27/25 07:05 06/27/25 07:05 06/27/25 07:05
Intake and Output
06/26/25 06/27/25 06/28/25
06:59 06:59 06:59
Intake Total 680 / 680 540 / 540
Output Total 650 / 650
Balance 680 / 680 -110 / -110
SaO2 97
Physical Exam
General: Comfortable and Other (NAD)
HEENT: Normocephalic, Anicteric and Moist Mucous Membranes
Cardiovascular: S1-S2 and Regular Rhythm
Respiratory: Clear and Non-Labored Respirations
GI: Soft, Non Distended and Non Tender
Neurology: Awake, Alert, Oriented and No Motor Deficits
Skin: Warm, Dry and Good Color
Labs/Micro/Reports
Lab Data
06/25/25 09:44
06/25/25 09:44
[2025-06-27 11:14] VITALS: BP 113/72
--- NOTE | 2025-06-27 13:17 | W.DS.TRANS ---
DC Summary - [employer]
-
Discharge Instructions:
Discharge Diagnosis/Procedures Acute CVA
Lung mass, new diagnosis.
PMR on corticosteroid taper.
Diet Regular
Instructions:
Stand-Alone Forms:
Changes to Home Medications: Yes
Discharge Medications:
DC Medications w/original date entered in [employer]
amlodipine 5 mg tablet 5 mg PO DAILY Blood Pressure 06/25/25
atorvastatin 40 mg tablet 40 mg PO QPM High Cholesterol 06/25/25
loperamide 2 mg capsule 2 mg PO Q6H PRN loose stool 06/25/25
mecobalamin (vitamin B12) 1,000 mcg chewable tablet 1,000 mcg PO DAILY Supplement 06/25/25
prednisone 20 mg tablet 35 mg PO DAILY PMR 06/25/25
apixaban 5 mg tablet (Eliquis) 5 mg PO BID #60 tabs 06/27/25
pantoprazole 40 mg tablet,delayed release 40 mg PO DAILY #30 tabs 06/27/25
Home Medication Changes
DAPT stopped
Eliquis initiated
Pending Results: No
--- NOTE | 2025-06-27 13:27 | CM ---
Patient is for discharge to home today, cost of Eliquis per month is $43, patient is aware and coupon provided.
Plan; Home today.
== END 2025-06-27 14:52 | disposition home or self-care (01) | DRG 65 ==
LOC: 4 WEST ACU 12:42
PROVIDERS: ADMITTING PHYSICIAN Internal Medicine; CONSULT PHYSICIAN Internal Medicine; CONSULT PHYSICIAN Internal Medicine Hematology & Oncology; CONSULT PHYSICIAN Psychiatry & Neurology Clinical Neurophysiology; EMERGENCY PHYSICIAN Emergency Medicine
DX: I63.89 Other cerebral infarction (principal); C34.31 Malignant neoplasm of lower lobe, right bronchus or lung; D68.69 Other thrombophilia; I10 Essential (primary) hypertension; E78.00 Pure hypercholesterolemia, unspecified; J43.9 Emphysema, unspecified; M31.5 Giant cell arteritis with polymyalgia rheumatica; R29.701 NIHSS score 1; Z87.891 Personal history of nicotine dependence; Z86.73 Personal history of transient ischemic attack (TIA), and cerebral infarction without residual deficits; Z85.828 Personal history of other malignant neoplasm of skin; Z79.899 Other long term (current) drug therapy; Z79.52 Long term (current) use of systemic steroids; R20.2 Paresthesia of skin; Z79.01 Long term (current) use of anticoagulants; Z79.82 Long term (current) use of aspirin; R63.4 Abnormal weight loss; Z68.21 Body mass index [BMI] 21.0-21.9, adult
CPT/HCPCS: 70450; 70544; 70548; 70553; 71260; 74177; 80053; 80061; 85025; 85610; 85652; 85730; 86140; 93005; 97162; 97167; 99285; A9585; Q9967

== ENCOUNTER → 2025-07-17 10:35 | Outpatient (REF) | payer MEDICARE, OTHER, SELFPAY | LOC: HWRAD 10:35 | PROVIDERS: ATTENDING PHYSICIAN Nurse Practitioner Adult Health; FAMILY PHYSICIAN Internal Medicine | DX: R91.8 Other nonspecific abnormal finding of lung field (principal) | CPT/HCPCS: 71250 ==

== ENCOUNTER 2025-07-27 06:09 | Day surgery (SDC) | payer MEDICARE, OTHER, SELFPAY ==
[2025-07-20 09:00] LABS: Hematocrit 37.7 % (39.0-52.0); Hemoglobin 12.4 g/dL (13.0-18.0); Mean Corp Hgb Conc. 32.9 g/dL (33.0-37.0); Mean Corpuscular Volume 90.2 fL (80.0-94.0); Platelet Count 216 10^3/uL (130-400); Red Cell Dist. Width 16.6 % (11.5-14.5)
[2025-07-20 09:08] LABS: APTT 28.0 Sec (23.4-35.0); INR 1.14; PT 14.9 Sec (11.4-14.6)
[2025-07-20 12:04] LABS: Blood Urea Nitrogen 26 mg/dl (9-20); Calcium 9.4 mg/dl (8.4-10.2); Carbon Dioxide 29 mmol/L (22-30); Chloride 106 mmol/L (98-107); Glucose 96 mg/dl (70-99); Potassium 4.0 mmol/L (3.5-5.1); Sodium 140 mmol/L (135-145); eGFR > 60.00
[2025-07-20 16:42] VITALS: BMI 21.6
[2025-07-27] VITALS (8 sets, daily range): BP systolic 129–154; BP diastolic 73–97; BMI 21.1; BMI 21.6
== END 2025-07-27 10:30 | disposition home or self-care (01) ==
LOC: SDS 06:09
PROVIDERS: ATTENDING PHYSICIAN Internal Medicine Critical Care Medicine; FAMILY PHYSICIAN Internal Medicine
DX: C34.31 Malignant neoplasm of lower lobe, right bronchus or lung (principal); J43.9 Emphysema, unspecified; E11.9 Type 2 diabetes mellitus without complications
CPT/HCPCS: 31653; 31623; 31628; 31624; 31627; 36415; 71045; 76000; 80048; 85027; 85610; 85730; 87015; 87070; 87102; 87116; 87205; 88112; 88173; 88305; 88341; 88342; 93005; C1887

== ENCOUNTER → 2025-08-16 13:00 | Outpatient (REF) | payer MEDICARE, OTHER, SELFPAY ==
[2025-08-16 13:20] LABS: Glucose 95 mg/dl (70-99)
== END ==
LOC: PET 13:00
PROVIDERS: ATTENDING PHYSICIAN Nurse Practitioner Adult Health; REFERRING PHYSICIAN Internal Medicine Critical Care Medicine
DX: R91.8 Other nonspecific abnormal finding of lung field (principal); Z01.818 Encounter for other preprocedural examination
CPT/HCPCS: 36415; 82947

== ENCOUNTER → 2025-08-30 15:10 | Outpatient (REF) | payer MEDICARE, OTHER, SELFPAY | LOC: HWRAD 15:10 | PROVIDERS: ATTENDING PHYSICIAN Internal Medicine Hematology & Oncology; FAMILY PHYSICIAN Internal Medicine | DX: R91.8 Other nonspecific abnormal finding of lung field (principal); C34.31 Malignant neoplasm of lower lobe, right bronchus or lung | CPT/HCPCS: 76536 ==